=== PATIENT | female | born 1965 | race Caucasian/White ===

== ENCOUNTER → 2016-10-01 | Outpatient (CLI) | payer BC ==
--- NOTE | 2016-10-02 16:39 | SLEEPHOME ---
DATE OF PROCEDURE: 10/01/2016 ORDERED BY: Dr. Sharpe Diagnostic home sleep testing was performed due to concern for the obstructive sleep apnea syndrome. For testing, a NOX-T3 respiratory monitoring device was used. Continuous record was made of pulse, oxygen saturation, air flow, chest, abdominal strain and body position. 9 hours and 59 minutes of data were reviewed. There were 7 hours and 51 minutes marked as time in bed. During the interval marked time in bed, there were 33 respiratory events identified of 10 seconds in duration or greater for a respiratory event index of 4.2. The events were primarily obstructive but mixed and central apneas were also seen. The patient's baseline pulse rate was 74 beats per minute. Pulse rate ranged 62 to 90 beats per minute. Oxygen saturation at baseline was 92%. Lowest oxygen saturation was 88%. Testing was performed in both the supine and nonsupine positions. IMPRESSION: Borderline home sleep test with repetitive respiratory events and oxygen desaturations to 88% with a respiratory event index of 4.2 is suggestive of the obstructive sleep apnea syndrome. Home testing is known to underestimate the significance of disease. If the patient's symptoms warrant, formal in laboratory nocturnal polysomnography is a more sensitive measure for the identification of obstructive sleep apnea syndrome. Edited by: ASHLEY 10/03/2016 13:49 JO
== END ==
LOC: M SLEEP HO 09:13
PROVIDERS: ATTEND Family Medicine
DX: G47.33 Obstructive sleep apnea (adult) (pediatric) (principal)

== ENCOUNTER → 2016-10-07 | Outpatient (REF) | payer BC ==
[2016-10-07 12:10] LABS: BASO % 0.7 % (0.0-1.0); EOS # 0.1 K/mm3 (0.0-0.50); EOS % 3.3 % (0.0-3.0); LARGE UNSTAINED CELL # 0.1 K/mm3 (0.0-0.4); LARGE UNSTAINED CELL % 1.7 % (0.0-4.0); LYMPH # 1.4 K/mm3 (1.5-4.5); LYMPH % 29.3 % (24.0-44.0); MEAN CORPUSCULAR HEMOGLOBIN 31.5 pg (27.0-33.0); MEAN CORPUSCULAR HGB CONC 32.5 g/dl (32.0-36.5); MEAN CORPUSCULAR VOLUME 96.8 fl (80.0-96.0); MONO # 0.2 K/mm3 (0.0-0.8); NEUTROPHILS # 2.6 K/mm3 (1.8-7.7); NEUTROPHILS % 59.8 % (36.0-66.0); PLATELET COUNT, AUTOMATED 288 k/mm3 (150-450); RED CELL DISTRIBUTION WIDTH 13.4 % (11.5-14.5); WHITE BLOOD COUNT 4.3 K/mm3 (4.0-10.0)
[2016-10-07 12:37] LABS: VITAMIN B12 LEVEL 792 PG/ML (247-911)
[2016-10-07 12:57] LABS: ALBUMIN 3.5 GM/DL (3.2-5.2); ALBUMIN/GLOBULIN RATIO 1.13 (1.00-1.93); ALKALINE PHOSPHATASE 103 U/L (45-117); ALT/SGPT 26 U/L (12-78); ANION GAP 5 MEQ/L (8-16); AST/SGOT 14 U/L (15-37); BILIRUBIN,TOTAL 0.3 MG/DL (0.2-1.0); BLOOD UREA NITROGEN 17 MG/DL (7-18); CALCIUM LEVEL 8.4 MG/DL (8.5-10.1); CARBON DIOXIDE LEVEL 26 MEQ/L (21-32); CHLORIDE LEVEL 113 MEQ/L (98-107); CHOLESTEROL LEVEL 180 MG/DL (<200); CREATININE FOR GFR 0.89 MG/DL (0.55-1.02); FERRITIN 15 NG/ML (8-252); FREE T4 0.74 NG/DL (0.76-1.46); GLOMERULAR FILTRATION RATE > 60.0 (>51); GLUCOSE, FASTING 84 MG/DL (70-105); PERCENT SATURATION 30.8 % (13.2-37.4); POTASSIUM SERUM 4.5 MEQ/L (3.5-5.1); SODIUM LEVEL 144 MEQ/L (136-145); TOTAL IRON BINDING CAPACITY 318 UG/DL (250-450); TOTAL PROTEIN 6.6 GM/DL (6.4-8.2); TRIGLYCERIDES LEVEL 93 MG/DL (<150)
== END ==
LOC: M SFHCPLAZ 11:27
PROVIDERS: ATTEND Family Medicine
DX: I10 Essential (primary) hypertension (principal); E78.2 Mixed hyperlipidemia; R73.01 Impaired fasting glucose; E55.9 Vitamin D deficiency, unspecified

== ENCOUNTER → 2016-10-13 | Outpatient (CLI) | payer BC ==
--- NOTE | 2016-10-13 09:26 | REPMRS ---
Patient History The patient states she had a clinical breast exam in 09/19 Patient is postmenopausal. Family history of breast cancer in mother at age 67 and breast cancer in maternal grandmother at age 50 or over. Benign excisional biopsy of the left breast. Taking estrogen for 3 years. Digital Woman Screen Mammo: October 13, 2016 - Exam #: [id number] Bilateral CC and MLO view(s) were taken. Technologist: Estefania Camarena, Technologist Prior study comparison: October 18, 2013, left breast digital mammo diagnostic unilateral, performed at [facility]. September 28, 2013, digital woman screen mammo performed at [facility]. FINDINGS: The breast tissue is heterogeneously dense. This may lower the sensitivity of mammography. There has been no change in the appearance of the mammogram from the prior studies. There is a moderate amount of residual fibroglandular tissue which is fairly symmetric. There is no interval development of dominant mass, areas of architectural distortion, or clustered microcalcification typical of malignancy. ASSESSMENT: BI-RADS/ACR category 1 mammogram. Negative. Recommendation Routine screening mammogram in 1 year (for women over age 40). This mammogram was interpreted with the aid of an FDA-approved computer-aided dectection system. Electronically Signed By: Femi Deleon MD 10/13/16 0926
--- NOTE | 2016-10-14 10:31 | DEXA ---
AP SPINE L1 - L4 1.216 0.2 0.3 LT FEMUR TOTAL 1.129 1.0 1.2 RT FEMUR TOTAL 1.104 0.8 1.0 TOTAL BODY TOTAL OTHER DUAL FEMUR FRAX* ASSESSMENT Risk factors: None. 10 year probability of fracture Major osteoporotic fracture 4.3 % Hip fracture 0.1 % COMMENTS: Normal bone densitometry of the spine and hips. The density of the spine has increased 3.1% since 09/2011. The density of the left hip has increased 4.5% since 09/2011. The density of the right hip has increased 5.0% since 09/2011. The increased density of the spine does represent a significant change. The increased density of the left hip does represent a significant change. The increased density of the right hip does represent a significant change. FOLLOW-UP: Recommendation for the next bone density exam: 5 years. JO
== END ==
LOC: M WHC 08:51
PROVIDERS: ATTEND Family Medicine
DX: Z12.31 Encounter for screening mammogram for malignant neoplasm of breast (principal); N95.1 Menopausal and female climacteric states; Z92.89 Personal history of other medical treatment; Z80.3 Family history of malignant neoplasm of breast
CPT/HCPCS: 77080; G0202

== ENCOUNTER 2016-10-21 09:22 | Inpatient (IN) | payer BC ==
[~2016-10-21] VITALS: Ht 162.6 cm; Wt 81.5 kg
[2016-10-21] MEDS ORDERED: BUPR1TAB17 PO (09:33)
[2016-10-21] MEDS ORDERED: VITA100037 PO (09:46)
[2016-10-21] MEDS ORDERED: ATOR1TAB21 PO (09:46)
[2016-10-21] MEDS ORDERED: B-12100010 INJ (09:46)
[2016-10-21] MEDS ORDERED: CALC1TAB30 PO (09:46)
[2016-10-21] MEDS ORDERED: OXYB5TAB PO (09:46)
[2016-10-21] MEDS ORDERED: TOPA100T8 PO (09:46)
[2016-10-21] MEDS ORDERED: FAMO1TAB25 PO (09:46)
[2016-10-21] MEDS ORDERED: ESTR1TAB PO (09:46)
[2016-10-21] MEDS ORDERED: REGL5TAB2 PO (09:46)
[2016-10-21] MEDS ORDERED: AMIT100TA PO (09:46)
[2016-10-21] MEDS ORDERED: METO-207 PO (09:46)
[2016-10-21] MEDS ORDERED: BUPR100T3 PO (09:47)
[2016-10-21 11:02] LABS: BASO % 0.8 % (0.0-1.0); EOS # 0.2 K/mm3 (0.0-0.50); EOS % 3.1 % (0.0-3.0); LARGE UNSTAINED CELL # 0.1 K/mm3 (0.0-0.4); LARGE UNSTAINED CELL % 2.5 % (0.0-4.0); LYMPH # 1.5 K/mm3 (1.5-4.5); LYMPH % 27.6 % (24.0-44.0); MEAN CORPUSCULAR HEMOGLOBIN 31.5 pg (27.0-33.0); MEAN CORPUSCULAR HGB CONC 32.3 g/dl (32.0-36.5); MEAN CORPUSCULAR VOLUME 97.5 fl (80.0-96.0); MONO # 0.2 K/mm3 (0.0-0.8); MONO % 4.2 % (0.0-5.0); NEUTROPHILS # 3.4 K/mm3 (1.8-7.7); NEUTROPHILS % 61.8 % (36.0-66.0); PLATELET COUNT, AUTOMATED 295 k/mm3 (150-450); RED CELL DISTRIBUTION WIDTH 13.2 % (11.5-14.5); WHITE BLOOD COUNT 5.5 K/mm3 (4.0-10.0)
--- NOTE | 2016-10-21 11:18 | REP ---
CT of the brain are without IV contrast: Comparison is 05/17/2010. There is a focal scalp contusion versus mass in the left supraorbital area medially, similar appearance to the comparison study. There is no subdural or epidural hematoma. There is no subarachnoid or intraparenchymal hemorrhage. There is no edema, mass effect or midline shift. Ventricles are normal size and midline. Cortical stripe is unremarkable. The visualized paranasal sinuses and mastoid air cells are clear. Impression: There is no hemorrhage, acute infarct or mass. There is a a scalp lesion in the left supraorbital area similar to the comparison study. This could be a contusion or scalp mass. Otherwise, negative CT study of the brain. Signed by Femi Lopez MD 10/21/2016 11:09 A
[2016-10-21 11:27] LABS: ALBUMIN 3.8 GM/DL (3.2-5.2); ALBUMIN/GLOBULIN RATIO 1.03 (1.00-1.93); ALKALINE PHOSPHATASE 111 U/L (45-117); ALT/SGPT 27 U/L (12-78); ANION GAP 6 MEQ/L (8-16); AST/SGOT 13 U/L (15-37); BILIRUBIN,DIRECT < 0.1 MG/DL (0.0-0.2); BILIRUBIN,TOTAL 0.3 MG/DL (0.2-1.0); BLOOD UREA NITROGEN 15 MG/DL (7-18); CALCIUM LEVEL 8.6 MG/DL (8.5-10.1); CARBON DIOXIDE LEVEL 24 MEQ/L (21-32); CHLORIDE LEVEL 112 MEQ/L (98-107); GLOMERULAR FILTRATION RATE > 60.0 (>51); GLUCOSE, FASTING 97 MG/DL (70-105); POTASSIUM SERUM 4.2 MEQ/L (3.5-5.1); SODIUM LEVEL 142 MEQ/L (136-145); TOTAL PROTEIN 7.5 GM/DL (6.4-8.2)
[2016-10-21 12:37] LABS: METHADONE URINE NEGATIVE (NEGATIVE)
--- NOTE | 2016-10-21 17:56 | REP ---
MR BRAIN WITHOUT CONTRAST: HISTORY: Ataxia. COMPARISON: 04/06/2013. Multiple areas of increased signal intensity on T2-weighted images are present in the periventricular and subcortical white matter. Additional areas of increased signal intensity are present in the corpus callosum. Several lesions are increased in size. There are several new lesions. There is no intraparenchymal hemorrhage, infarct, mass or midline shift. The ventricular system is normal in appearance. There is no extracerebral collection. The visualized sinuses are clear. A 7 mm isointense nodule is present in the subcutaneous tissue overlying the right fontal bone, unchanged compared to the previous study. IMPRESSION: The above findings are consistent with multiple sclerosis that have progressed slightly compared to the previous study. Signed by Linden Hebert MD 10/21/2016 06:14 P
--- NOTE | 2016-10-21 18:30 | REP ---
MRA HEAD WITHOUT CONTRAST: HISTORY: Ataxia. 3D [id number]-[id number] MR angiography was performed at the level of the [place] of [place]. There is no aneurysm, arteriovenous malformation or atherosclerotic lesion. Major intracranial vessels are patent. The left vertebral arteries are equal in size. IMPRESSION:Normal MRA brain. Signed by Linden Hebert MD 10/21/2016 06:51 P
[2016-10-21] MEDS ORDERED: FAMO1TAB11 PO (19:08)
[2016-10-21] MEDS ORDERED: ESTR0.5T3 PO (19:08)
[2016-10-21] MEDS ORDERED: ONDANSETRON 4MG/2ML VIAL (J2405) IV PRN (20:00)
[2016-10-21] MEDS ORDERED: ACETAMINOPHEN TAB 650MG DOSE (2X325MG) PO PRN (20:00)
--- NOTE | 2016-10-21 20:14 | HPEPDOC ---
General Date of Admission 10/21/16 Primary Care Physician: Sulaiman Sharpe M.D. Chief Complaint The patient is a 51-year-old female admitted with a reason for visit of allergic reaction. History of Present Illness 51-year-old female with past medical history of hypertension, urge incontinence , neurofibromatosis type I, dyslipidemia, GERD, migraine headache with findings of multiple areas of increased signal intensity in the periventricular and subcortical white matter on MRI presents to the ER with a chief complaint of increased generalized weakness and tremors over the last 3 days. The patient states that her symptoms have started since she was began on Wellbutrin about a week ago. She notes that she feels more tremulous in her extremities and has a more unbalanced gait. In addition, she notes that her speech has also fluctuated in intensity and she has noticed herself stuttering more. Of note, the patient states that she did follow up with Dr. Marquez of Neurology in the past for migrainous headaches (followed for 10-15 years, last seen in 2013). However, she denies any migrainous episodes during this time. In addition, the patient denies any fevers, chills, lightheadedness, dizziness, facial numbness, tingling, or any focal neurological deficits, chest pain, palpitations, SOB, abdominal pain, or nausea/vomiting/diarrhea. In the ER, an MRI of the brain revealed findings consistent with multiple sclerosis that have increased slightly compared to her previous exam. Dr. Mcgill of neurology was contacted in the ER about this, and he has recommended an MRI of the brain and cervical, thoracic, and lumbar spine with contrast for further evaluation. The patient will be admitted under the service of Dr. Padilla of the [facility] for further evaluation and management. Home Medications Scheduled (Calcium 500+D 500-200 mg-Unit) 1 Tab Tab 1 TAB PO DAILY (Reported) (Bupropion HCl Sr) 100 Mg Tab 100 MG PO BID (Reported) Amitriptyline HCl (Amitriptyline HCl) 100 Mg Tab 100 MG PO QHS (Reported) Atorvastatin Calcium (Atorvastatin Calcium) 20 Mg Tab 20 MG PO DAILY (Reported ) Cyanocobalamin (B-12) 1,000 Mcg Cap 1,000 MCG INJ MTHLY (Reported) USUALLY DOES TOWARDS THE END OF EVERY MONTH - HAS NOT DONE SHIRLEY'S DOSE YET Estradiol (Estrace) 0.5 Mg Tab 0.5 MG PO DAILY (Reported) Famotidine (Famotidine) 20 Mg Tab 20 MG PO BID (Reported) Metoclopramide Hcl (Reglan) 5 Mg Tab 5 MG PO BID (Reported) Metoprolol Succinate (Metoprolol Succinate ER) 50 Mg Tab 50 MG PO DAILY ( Reported) Oxybutynin Chloride (Oxybutynin Chloride ER) 5 Mg Tab 5 MG PO DAILY (Reported) Topiramate (Topamax) 100 Mg Tab 100 MG PO BID (Reported) Vitamin D (Vitamin D) 1,000 Unit Cap 1,000 UNIT PO DAILY (Reported) Allergies Coded Allergies: Dextran (Unverified Allergy, Unknown, PROMETRIUM CAUSES BLACK OUTS, 10/05/12 ) Dust (Unverified Allergy, Unknown, 06/13/08) Citalopram (Unverified Adverse Reaction, Unknown, WGT GAIN, 10/05/12) Past Medical History Medical History As noted in HPI. Surgical History APPENDECTOMY 1978 TUBAL LIGATION 1998 LEEP/NO DYSPLASIA 03/11 ENDOMETRIAL BX./NO HYPERPLASIA OR MALIGNANCY FOUND-REGGIE CONCEPCION,KATHI 05/12 SKIN TAG LEFT BREAST REMOVED 10/07 LAVH/BSO 2 POSTEMENOPAUSAL BLEEDING, LEIOMYOMAE, PELVIC ADHESIONS, B OVARIAN SEROUS CYST DEVELOPED POSTOP WOUND INFECTION 07/2011 COLONOSCOPY-DR. SAMUEL CHRISTIANSON 04/10/16 Family History FATHER: UNKNOWN MOTHER: ALIVE 74 YRS, CAD-S/P VT AT ?16 YO, BREAST CANCER, DX AT AGE 66, LUMPECTOMY, NO CHEMO/RAD, COPD, HEART VALVE MALFUNCTION SON(S): ALIVE 32,24 YRS MATERNAL GRAND MOTHER: , BREAST CANCER, DX 3 SISTER(S) - HEALTHY. 2 SON(S) - HEALTHY. DENIES COLON OR OVARIAN CANCERS. Social History * Smoker: former Smoker Alcohol: Denies Drugs: denies Review of Symptoms Other systems 10 point review of systems negative unless otherwise specified in HPI. Physical Examination General Exam: Positive: Alert, Cooperative, No Acute Distress ENT Exam: Positive: Atraumatic, Mucous membr. moist/pink Neck Exam: Negative: JVD Chest Exam: Positive: Clear to auscultation, Normal air movement Heart Exam: Positive: Normal S1, Normal S2, Rate Normal Abdomen Exam: Positive: Soft, Negative: Tenderness Extremity Exam: Negative: Swelling, Tenderness Neuro Exam: Positive: Cranial Nerves 3-12 NL, Normal Tone, Reflexes 2+, Sensation Intact, Strength at 5/5 X4 ext Psych Exam: Positive: Oriented x 3 Vital Signs Vital Signs Date Time Temp Pulse Resp B/P Pulse Ox O2 Delivery O2 Flow Rate FiO2 10/21/16 17:58 63 20 135/86 96 10/21/16 09:23 97.9 Room Air Laboratory Data Labs 24H Laboratory Tests 2 10/21/16 10:32: Aspartate Amino Transf (AST/SGOT) 13L, Alanine Aminotransferase (ALT/SGPT) 27, Alkaline Phosphatase 111, Total Bilirubin 0.3, Direct Bilirubin < 0.1, Albumin 3.8, Albumin/Globulin Ratio 1.03, Anion Gap 6L, White Blood Count 5.5, Red Blood Count 4.64, Hemoglobin 14.6, Hematocrit 45.2, Mean Corpuscular Volume 97.5H, Mean Corpuscular Hemoglobin 31.5, Mean Corpuscular Hemoglobin Concent 32.3, Red Cell Distribution Width 13.2, Platelet Count 295, Neutrophils (%) ( Auto) 61.8, Lymphocytes (%) (Auto) 27.6, Monocytes (%) (Auto) 4.2, Eosinophils ( %) (Auto) 3.1H, Basophils (%) (Auto) 0.8, Neutrophils # (Auto) 3.4, Lymphocytes # (Auto) 1.5, Monocytes # (Auto) 0.2, Eosinophils # (Auto) 0.2, Basophils # ( Auto) 0.0, Calcium Level 8.6, Ethyl Alcohol Level < 0.003, Glomerular Filtration Rate > 60.0, Large Unclassified Cells # 0.1, Large Unclassified Cells % 2.5, Thyroid Stimulating Hormone (TSH) 0.917, Total Protein 7.5 10/21/16 11:20: Ammonia 24 10/21/16 11:22: Bedside Glucose (Misc Panel) 91 10/21/16 11:59: Urine Amphetamines Screen NEGATIVE, Urine Benzodiazepines Screen NEGATIVE, Urine Opiates Screen NEGATIVE, Urine Barbiturates Screen NEGATIVE, Urine Cannabinoids Screen NEGATIVE, Urine Cocaine Metabolite Screen NEGATIVE, Urine Methadone Screen NEGATIVE, Urine Phencyclidine Screen NEGATIVE CBC/BMP Laboratory Tests 10/21/16 10:32 Red Blood Count 4.64, Mean Corpuscular Volume 97.5 H, Mean Corpuscular Hemoglobin 31.5, Mean Corpuscular Hemoglobin Concent 32.3, Red Cell Distribution Width 13.2, Neutrophils (%) (Auto) 61.8, Lymphocytes (%) (Auto) 27.6, Monocytes (%) (Auto) 4.2, Eosinophils (%) (Auto) 3.1 H, Basophils (%) ( Auto) 0.8, Neutrophils # (Auto) 3.4, Lymphocytes # (Auto) 1.5, Monocytes # (Auto ) 0.2, Eosinophils # (Auto) 0.2, Basophils # (Auto) 0.0 Plan / VTE VTE Prophylaxis Ordered?: Yes Plan Plan Tremors possibly attributable to MRI of Brain consistent with multiple sclerosis vs Wellbutrin use We will admit the patient to med/surge unit No focal neurological deficits appreciated on exam Neurology contacted in the ER-we will obtain an MRI of the brain, and cervical/ thoracic/lumbar spine with contrast We will withhold administering any steroids at this time, and wait for evaluation by neurology We will withhold the patient's Wellbutrin as this may have been a causative factor for the patient's tremors Neurological checks Continue to monitor Migraine headaches Patient followed Dr. Marquez of Neurology as an outpatient in the past before for history of migraines Patient denies any complaints of migrainous headaches at this time Continue amitriptyline, Topamax Hypertension, stable Continue metoprolol Dyslipidemia Continue statin Urge incontinence Continue oxybutynin GERD Cont Famotidine DVT prophylaxis-Lovenox The patient will be admitted under the service of Dr. Padilla, of the [facility] who will begin to follow the patient in the a.PHYLICIA Lerner MD Oct 21, 2016 20:14
--- NOTE | 2016-10-21 20:17 | ECGEPIP ---
Stationary ECG Study [facility] - ED Test Date: 2016-10-21 Pat Name: GUERRERO LEIVA Department: Room: - Gender: F Stunt Performer: JJessie : 1965 Requested By: Alissa Gay Order Number: [id number] Reading MD: Alissa Gay Measurements Intervals [place] Rate: 66 P: 7 VA: 190 QRS: -6 QRSD: 104 T: 40 QT: 407 QTc: 429 Interpretive Statements SINUS RHYTHM NO PRIOR FOR COMPARISON Electronically Signed On 10-21-2016 20:17:00 EDT by Alissa Gay
--- NOTE | 2016-10-21 21:40 | REPUSA ---
MRI of the thoracic spine with and without contrast Clinical statement: tremors, history of multiple sclerosis. Technique: Multiecho multiplanar MRI images of the thoracic spine were obtained before and after adm inistration of 15 mL of Prohance intravenous gadolinium contrast. No comparison is available. Findings: The thoracic vertebral bodies are in satisfactory position and alignment. No fractures or d islocations are demonstrated. The bone marrow appears unremarkable. Intervertebral disc spaces are we ll maintained. There is no evidence of disc herniation or protrusion. The neural foramen are patent. The facet joints are intact. The surrounding soft tissues are within normal limits. There are no abno rmal areas of contrast enhancement. Impression: Unremarkable MRI examination of the thoracic spine.. No acute findings to suggest exacerb ation of multiple sclerosis.
--- NOTE | 2016-10-21 21:40 | REPUSA ---
MRI of the lumbar spine with and without contrast Clinical statement: tremors, history of multiple sclerosis. Technique: Multiecho multiplanar MRI images of the lumbar spine were obtained before and after admin istration of 15 mL of intravenous Prohance gadolinium contrast. No comparison is available. Findings: The lumbar vertebral bodies are in satisfactory position and alignment. No fractures or dis locations are demonstrated. Normal heterogeneous bone marrow signal is noted. No osseous tumors are s een. The intervertebral disc heights are well maintained and demonstrate normal signal. The filum ter minale and conus medullaris appear unremarkable. The spinal cord demonstrates normal signal and conto ur. The surrounding soft tissues are within normal limits. At the lumbar vertebral levels, there is no evidence of disc herniation or protrusion. There is no ce ntral canal stenosis. There.are no abnormal areas of enhancement on postcontrast images. Impression: Unremarkable MRI examination of the lumbar spine. No evidence of exacerbation of multipl e sclerosis. Findings will be called by the toaster operator.
--- NOTE | 2016-10-21 21:40 | REPUSA ---
MRI cervical spine with and without contrast Clinical statement: Multiple sclerosis. Tremors. Technique: Multiecho multiplanar MRI images of the cervical spine were obtained before and after adm inistration of 15 mL of Prohance intravenous gadolinium contrast. No comparison is available. Findings: The cervical vertebral bodies are in satisfactory position and alignment. No fractures or d islocations are demonstrated. Normal heterogeneous bone marrow signal is noted. No osseous tumors are seen. The visualized portions of the posterior fossa are unremarkable. The cervical cranial junction is intact. The intervertebral disc spaces and heights are well-maintained. The facet joints are inta ct without evidence of subluxation. The cervical spinal cord demonstrates normal signal and contour. The surrounding soft tissues are within normal limits. there are no abnormal areas of intestine on po stcontrast images. Minimal disc bulging is appreciated at C4/C5 and C5/C6.. There is no central canal stenosis. The jb ral foramina are patent bilaterally. Impression: 1. No focal abnormal area of enhancement to suggest exacerbation of multiple sclerosis. 2 Minimal disc bulging at C4/C5 and C5/C6.
[2016-10-21 23:08] VITALS: BP 120/58
[2016-10-21] MEDS: FAMOTIDINE 20 MG TAB PO SCH (23:29)
[2016-10-21] MEDS: TOPIRAMATE (TopAMAX) 100 MG TAB PO SCH (23:29)
[2016-10-21] MEDS: METOCLOPRAMIDE 5 MG TAB PO SCH (23:30)
[2016-10-21] MEDS: AMITRIPTYLINE 50 MG TAB PO SCH (23:30)
--- NOTE | 2016-10-22 00:50 | REPUSA ---
MRI of the brain with contrast Technique: Multiecho multiplanar MRI images of the brain were obtained after administration of 15 m L of intravenous Prohance gadolinium contrast. Comparison: 10/21/2016. Findings: The ventricles and sulci are symmetric bilaterally. The brain parenchyma demonstrates uniform and nor mal signal on all sequences. There is no area of abnormal enhancement appreciated. The vascular struc tures appear unremarkable. There is no midline shift, mass effect, or extra-axial fluid collection. T he midline intracranial structures do not demonstrate any gross abnormalities. The cervical cranial j unction is intact. The orbits are unremarkable. The visualized paranasal sinuses and mastoid air cell s are clear. The osseous structures and superficial soft tissues are unremarkable. The vascular struc tures demonstrate appropriate flow voids. Impression: No abnormal area of enhancement appreciated. The other findings are grossly stable.
[2016-10-22 06:00] VITALS: BP 103/63
[2016-10-22 06:38] LABS: MEAN CORPUSCULAR HGB CONC 31.7 g/dl (32.0-36.5); MEAN CORPUSCULAR VOLUME 97.7 fl (80.0-96.0); RED CELL DISTRIBUTION WIDTH 13.3 % (11.5-14.5); WHITE BLOOD COUNT 5.8 K/mm3 (4.0-10.0)
[2016-10-22 06:51] LABS: ANION GAP 5 MEQ/L (8-16); BLOOD UREA NITROGEN 15 MG/DL (7-18); CALCIUM LEVEL 8.5 MG/DL (8.5-10.1); CARBON DIOXIDE LEVEL 23 MEQ/L (21-32); CHLORIDE LEVEL 112 MEQ/L (98-107); GLOMERULAR FILTRATION RATE > 60.0 (>51); GLUCOSE, FASTING 101 MG/DL (70-105); POTASSIUM SERUM 3.9 MEQ/L (3.5-5.1); SODIUM LEVEL 140 MEQ/L (136-145)
[2016-10-22] MEDS: VITAMIN D 1,000 INTERNATIONAL UNITS TABLET PO SCH (09:03)
[2016-10-22] MEDS: oxyBUTYnin *DITROPAN XL* 5 MG TABCR PO SCH (09:03)
[2016-10-22] MEDS: ATORVASTATIN 20 MG TAB PO SCH (09:03)
[2016-10-22] MEDS: TOPIRAMATE (TopAMAX) 100 MG TAB PO SCH ×2 (09:03→20:09)
[2016-10-22] MEDS: FAMOTIDINE 20 MG TAB PO SCH ×2 (09:03→20:09)
[2016-10-22] MEDS: METOPROLOL SUCC (TopROL XL) 50MG **XL** TAB PO SCH (09:03)
[2016-10-22] MEDS: METOCLOPRAMIDE 5 MG TAB PO SCH ×2 (09:03→20:09)
[2016-10-22] MEDS: ENOXAPARIN 40 MG/0.4 ML SYRINGE (J1650) SC SCH (09:04)
--- NOTE | 2016-10-22 10:13 | IPNPDOC ---
Subjective Date Seen The patient was seen on 10/22/16. Subjective Chief Complaint/HPI The patient is a 51-year-old female admitted with a reason for visit of Multiple Sclerosis. Events since last encounter Pt without change in symptoms since arrival to hospital. She c/o tremors more so to the BLE with movement, unsteady gait, although she has been cleared by PT. She denies [place]E, weakness, numbness, tingling. General: Denies: Fatigue Constitutional: Denies: Chills, Fever ENT: Denies: Head Aches Skin: Denies: Rash Pulmonary: Denies: Cough, Dyspnea Cardiovascular: Denies: Chest Pain, Palpitations Gastrointestinal: Denies: Diarrhea, Nausea, Vomiting Musculoskeletal: Denies: Back Pain, Neck Pain Neurological: Reports: Change in speech (occ will stutter, have a hard time getting the words out, this has started since the tremors began. ), Incoordination, Denies: Confusion, Numbness, Weakness Psych: Reports: Mood Normal Objective Physical Examination General Exam: Positive: Alert, Cooperative, No Acute Distress ENT Exam: Positive: Atraumatic, Mucous membr. moist/pink Neck Exam: Negative: JVD Chest Exam: Positive: Clear to auscultation, Normal air movement Heart Exam: Positive: Normal S1, Normal S2, Rate Normal Abdomen Exam: Positive: Soft, Negative: Tenderness Extremity Exam: Negative: Swelling, Tenderness Neuro Exam: Positive: Cranial Nerves 3-12 NL, Normal Tone, Other (tremors to legs when she lifts them off the bed), Reflexes 2+, Sensation Intact, Strength at 5/5 X4 ext Psych Exam: Positive: Oriented x 3 Assessment /Plan Problems (1) Multiple sclerosis Status: Acute Problem Text: MRI brain suggestive of MS with worsening c/w previous imaging in 2012, 2011. Pt previously followed with Neuro for migraines, consult pending , await input and recommendations. MRI C, T, L spine without acute disease, and suggestion of changes assoc with MS. (2) Action tremor Status: Acute Problem Text: as above. (3) Hypertension Status: Chronic Response to Treatment: Stable Plan/VTE VTE Prophylaxis Ordered?: Yes Plan Family Medicine Attending Note: I saw and examined Ms. Roman this afternoon; I d/w EWELINA Perez and I agree with her note as above. Patient has intention tremor in legs and hands, with difficulty with alternating hand movements, dtlmpm-gr-ylir testing, and omzr-[id number] movements. She denies any pain in her extremities and at rest feels at her baseline. She has some rigidity of legs with passive ROM. She is able to stand and walk with only minimal difficulty and gait improves the farther she walks. Initial MRI in ED suggested MS, but repeat brain MRI and spine MRI with contrast do not show any normal enhancement. Will await Neurology evaluation and recommendations. (KES) VS, I&O, 24H, Fishbone Vital Signs/I&O Vital Signs Date Time Temp Pulse Resp B/P Pulse Ox O2 Delivery O2 Flow Rate FiO2 10/22/16 09:03 81 118/76 10/22/16 06:00 97.0 15 93 Room Air I&O- Last 24 Hours up to 6 AM 10/22/16 06:00 Intake Total 240 ml Output Total 500 ml Balance -260 ml Laboratory Data 24H LABS Laboratory Tests 2 10/21/16 10:32: Aspartate Amino Transf (AST/SGOT) 13L, Alanine Aminotransferase (ALT/SGPT) 27, Alkaline Phosphatase 111, Total Bilirubin 0.3, Direct Bilirubin < 0.1, Albumin 3.8, Albumin/Globulin Ratio 1.03, Anion Gap 6L, White Blood Count 5.5, Red Blood Count 4.64, Hemoglobin 14.6, Hematocrit 45.2, Mean Corpuscular Volume 97.5H, Mean Corpuscular Hemoglobin 31.5, Mean Corpuscular Hemoglobin Concent 32.3, Red Cell Distribution Width 13.2, Platelet Count 295, Neutrophils (%) ( Auto) 61.8, Lymphocytes (%) (Auto) 27.6, Monocytes (%) (Auto) 4.2, Eosinophils ( %) (Auto) 3.1H, Basophils (%) (Auto) 0.8, Neutrophils # (Auto) 3.4, Lymphocytes # (Auto) 1.5, Monocytes # (Auto) 0.2, Eosinophils # (Auto) 0.2, Basophils # ( Auto) 0.0, Calcium Level 8.6, Ethyl Alcohol Level < 0.003, Glomerular Filtration Rate > 60.0, Large Unclassified Cells # 0.1, Large Unclassified Cells % 2.5, Thyroid Stimulating Hormone (TSH) 0.917, Total Protein 7.5 10/21/16 11:20: Ammonia 24 10/21/16 11:22: Bedside Glucose (Misc Panel) 91 10/21/16 11:59: Urine Amphetamines Screen NEGATIVE, Urine Benzodiazepines Screen NEGATIVE, Urine Opiates Screen NEGATIVE, Urine Barbiturates Screen NEGATIVE, Urine Cannabinoids Screen NEGATIVE, Urine Cocaine Metabolite Screen NEGATIVE, Urine Methadone Screen NEGATIVE, Urine Phencyclidine Screen NEGATIVE 10/22/16 06:11: Anion Gap 5L, Blood Urea Nitrogen 15, Creatinine 0.90, Sodium Level 140, Potassium Level 3.9, Chloride Level 112H, Carbon Dioxide Level 23, Calcium Level 8.5, Glomerular Filtration Rate > 60.0 CBC/BMP Laboratory Tests 10/21/16 10:32 Red Blood Count 4.64, Mean Corpuscular Volume 97.5 H, Mean Corpuscular Hemoglobin 31.5, Mean Corpuscular Hemoglobin Concent 32.3, Red Cell Distribution Width 13.2, Neutrophils (%) (Auto) 61.8, Lymphocytes (%) (Auto) 27.6, Monocytes (%) (Auto) 4.2, Eosinophils (%) (Auto) 3.1 H, Basophils (%) ( Auto) 0.8, Neutrophils # (Auto) 3.4, Lymphocytes # (Auto) 1.5, Monocytes # (Auto ) 0.2, Eosinophils # (Auto) 0.2, Basophils # (Auto) 0.0 10/22/16 06:11 Red Blood Count 4.52, Mean Corpuscular Volume 97.7 H, Mean Corpuscular Hemoglobin 31.0, Mean Corpuscular Hemoglobin Concent 31.7 L, Red Cell Distribution Width 13.3, Calcium Level 8.5 YANA LANDA PA-C Oct 22, 2016 10:13 MARCELLO JEFFERSON MD Oct 22, 2016 16:45
[2016-10-22 14:00] VITALS: BP 108/56
[2016-10-22] MEDS: AMITRIPTYLINE 50 MG TAB PO SCH (20:09)
[2016-10-22 22:00] VITALS: BP 120/64
[2016-10-23 06:00] VITALS: BP 119/69
[2016-10-23 06:16] LABS: MEAN CORPUSCULAR HEMOGLOBIN 30.2 pg (27.0-33.0); MEAN CORPUSCULAR HGB CONC 30.9 g/dl (32.0-36.5); MEAN CORPUSCULAR VOLUME 97.8 fl (80.0-96.0); RED CELL DISTRIBUTION WIDTH 13.3 % (11.5-14.5); WHITE BLOOD COUNT 5.4 K/mm3 (4.0-10.0)
[2016-10-23 06:26] LABS: ANION GAP 8 MEQ/L (8-16); BLOOD UREA NITROGEN 14 MG/DL (7-18); CALCIUM LEVEL 7.7 MG/DL (8.5-10.1); CARBON DIOXIDE LEVEL 21 MEQ/L (21-32); CHLORIDE LEVEL 113 MEQ/L (98-107); CREATININE FOR GFR 0.97 MG/DL (0.55-1.02); GLOMERULAR FILTRATION RATE > 60.0 (>51); GLUCOSE, FASTING 102 MG/DL (70-105); POTASSIUM SERUM 4.3 MEQ/L (3.5-5.1); SODIUM LEVEL 142 MEQ/L (136-145)
[2016-10-23 09:00] VITALS: BP 119/69
[2016-10-23] MEDS: ENOXAPARIN 40 MG/0.4 ML SYRINGE (J1650) SC SCH (09:00)
[2016-10-23] MEDS: METOPROLOL SUCC (TopROL XL) 50MG **XL** TAB PO SCH (09:00)
[2016-10-23] MEDS: METOCLOPRAMIDE 5 MG TAB PO SCH (09:00)
[2016-10-23] MEDS: oxyBUTYnin *DITROPAN XL* 5 MG TABCR PO SCH (09:00)
[2016-10-23] MEDS: ATORVASTATIN 20 MG TAB PO SCH (09:00)
[2016-10-23] MEDS: VITAMIN D 1,000 INTERNATIONAL UNITS TABLET PO SCH (09:00)
[2016-10-23] MEDS: TOPIRAMATE (TopAMAX) 100 MG TAB PO SCH (09:00)
[2016-10-23] MEDS: FAMOTIDINE 20 MG TAB PO SCH (09:00)
--- NOTE | 2016-10-23 10:35 | IPNPDOC ---
Subjective Date Seen The patient was seen on 10/23/16. Subjective Chief Complaint/HPI The patient is a 51-year-old female admitted with a reason for visit of Multiple Sclerosis. Events since last encounter Pt cont to c/o tremors of extremities with movement, LE worse then UE. She also has difficulty with speech with is more notable the more she talks. Neuro did not come see her yesterday. General: Denies: Fatigue Constitutional: Denies: Chills, Fever Pulmonary: Denies: Cough, Dyspnea Cardiovascular: Denies: Chest Pain, Palpitations Gastrointestinal: Denies: Diarrhea, Nausea, Vomiting Neurological: Reports: Incoordination, Weakness Psych: Reports: Mood Normal Objective Physical Examination General Exam: Positive: Alert, Cooperative, No Acute Distress ENT Exam: Positive: Atraumatic, Mucous membr. moist/pink Neck Exam: Negative: JVD Chest Exam: Positive: Clear to auscultation, Normal air movement Heart Exam: Positive: Normal S1, Normal S2, Rate Normal Abdomen Exam: Positive: Soft, Negative: Tenderness Extremity Exam: Negative: Swelling, Tenderness Neuro Exam: Positive: Cranial Nerves 3-12 NL, Normal Tone, Other (tremors to legs when she lifts them off the bed), Reflexes 2+, Sensation Intact, Strength at 5/5 X4 ext Psych Exam: Positive: Oriented x 3 Assessment /Plan Problems (1) Multiple sclerosis Status: Acute Problem Text: 10/23 - Reviewed with pt results of MRI brain, C, T and L spine c/ w Brain imaging. Concern for MS as cause of symptoms. Would appreciate input from Neuro who was consulted on admission to come see the pt by Dr Garcia. Nursing has called them this morning and left a message with a staff to remind them of the consult. 10/22 MRI brain suggestive of MS with worsening c/w previous imaging in 2012, 2011. Pt previously followed with Neuro for migraines, consult pending, await input and recommendations. MRI C, T, L spine without acute disease, and suggestion of changes assoc with MS. (2) Action tremor Status: Acute Problem Text: as above. (3) Hypertension Status: Chronic Response to Treatment: Stable Plan/VTE VTE Prophylaxis Ordered?: Yes Plan Family Medicine Attending Note: Patient seen and examined today; I d/w Yana Landa and I agree with her note. Neuro exam remains unchanged today. Patient was found to be safe for discharge by PT yesterday. I d/w Dr. Juarez, who will see the patient today, review her MRIs, and make recommendations. He state that with negative MRIs with contrast, she is unlikely to have MS and that this may be a reaction to wellbutrin or an alternative neurologic process. I agree that timing of onset is suspicious for medication reaction as she started wellbutrin on 10/10, developed symptoms on 10/14, and then symptoms progressively worsened until medication was stopped upon admission. Will await recommendations. (KES) VS, I&O, 24H, Fishbone Vital Signs/I&O Vital Signs Date Time Temp Pulse Resp B/P Pulse Ox O2 Delivery O2 Flow Rate FiO2 10/23/16 09:00 69 119/69 10/23/16 06:00 97.5 17 95 Room Air I&O- Last 24 Hours up to 6 AM 10/23/16 05:59 Intake Total 1200 ml Output Total 1550 ml Balance -350 ml Laboratory Data 24H LABS Laboratory Tests 2 10/23/16 05:53: Anion Gap 8, Blood Urea Nitrogen 14, Creatinine 0.97, Sodium Level 142, Potassium Level 4.3, Chloride Level 113H, Carbon Dioxide Level 21, Calcium Level 7.7L, Glomerular Filtration Rate > 60.0 CBC/BMP Laboratory Tests 10/23/16 05:53 Calcium Level 7.7 L, Red Blood Count 4.38, Mean Corpuscular Volume 97.8 H, Mean Corpuscular Hemoglobin 30.2, Mean Corpuscular Hemoglobin Concent 30.9 L, Red Cell Distribution Width 13.3 YANA LANDA PA-C Oct 23, 2016 10:35 MARCELLO JEFFERSON MD Oct 23, 2016 15:44
[2016-10-23 14:00] VITALS: BP 112/69
--- NOTE | 2016-10-24 18:05 | DSES ---
DATE OF ADMISSION: 10/21/2016 DATE OF DISCHARGE: 10/23/2016 PRIMARY CARE PHYSICIAN: Dr. Sulaiman Sharpe. ATTENDING PHYSICIAN: Dr. Lisa Padilla. PRIMARY DIAGNOSES: 1. Intention tremor. 2. Neurofibromatosis Type 1. SECONDARY DIAGNOSES: 1. Hypertension. 2. Urge incontinence. 3. Dyslipidemia. 4. Gastroesophageal reflux disease (GERD). 5. Migraine headache. CONSULTANTS: Dr. Mcgill of neurology. PROCEDURES: None. SUMMARY STATEMENT: This is a 51-year-old woman with a history of neurofibromatosis type 1 and migraines, who previously followed with neurology, who presented with one week of tremors and difficulty talking. The patient started taking Wellbutrin on 10/10/2016, and developed symptoms on 10/14/2016. Her tremor continued to worsen over the following week, causing her to present to the emergency department on 10/21/2016. The patient underwent initial MRI in the emergency department which showed lesions that were potentially concerning for multiple sclerosis. She subsequently underwent MRI with gadolinium of her brain, cervical, thoracic and lumbar spine, which was less suggestive of multiple sclerosis. The patient was seen by Dr. Mcgill who recommended that we continue to hold Wellbutrin as he thought her symptoms may be side effects to the Wellbutrin. He believes that any abnormalities on MRI are consistent with her neurofibromatosis type 1. The patient continued to have intention tremor in arms and legs throughout her hospitalization, but was evaluated by physical therapy and found to be safe for home discharge with close monitoring by her . DISCHARGE PLANS: 1. Discharge medications: - amitriptyline 100 mg by mouth at bedtime - atorvastatin 20 mg by mouth daily - cyanocobalamin 100 mcg injection monthly - calcium 500 plus D 200 units one tablet by mouth daily - estradiol 0.5 mg by mouth daily - famotidine 20 mg by mouth twice daily - metoclopramide 5 mg by mouth twice a day - metoprolol succinate ER 50 mg by mouth daily - oxybutynin chloride 5 mg by mouth daily - topiramate 100 mg by mouth twice daily - vitamin D 1000 units by mouth daily Medications stopped during this admission - bupropion SR 100 mg twice daily 2. Followup with Dr. Sharpe next week in the office. Followup with Dr. Mcgill within 1-2 weeks. 3. Activity as tolerated. 4. Diet regular. 5. Condition stable. 6. Prognosis good. 7. Pending studies: none HOSPITAL COURSE BY PROBLEM: 1. Intention tremor: This was thought to be most likely due to side effect of Wellbutrin. Further workup may be indicated as an outpatient. Patient was advised to followup with neurology as an outpatient. Initially there was some concern that patient might have multiple sclerosis; however, MRI with gadolinium was done of the brain, cervical, thoracic and lumbar spine, and these did not show any enhancement consistent with multiple sclerosis. Dr. Mcgill evaluated the patient and imaging and thought that any abnormalities were likely related to neurofibromatosis. 2. Neurofibromatosis: Stable. The patient is to followup with neurology. 3. Chronic migraines: Stable. The patient was continued on her home topiramate and amitriptyline. 4. Hyperlipidemia: The patient was continued on her home atorvastatin. 5. Urinary urge incontinence: The patient was continued on her home oxybutynin. 6. Gastroesophageal reflux disease (GERD). The patient was continue on her home famotidine. [facility]
== END 2016-10-23 20:12 | disposition home or self-care (01) | DRG 58 ==
LOC: M ED 11:25 → M ED INP 19:51 → M MSPAV 23:06
PROVIDERS: ADMIT Internal Medicine; ATTEND Family Medicine
DX: G25.2 Other specified forms of tremor (principal); I10 Essential (primary) hypertension; N39.41 Urge incontinence; Q85.01 Neurofibromatosis, type 1; E78.5 Hyperlipidemia, unspecified; K21.9 Gastro-esophageal reflux disease without esophagitis; R26.81 Unsteadiness on feet; T43.295A Adverse effect of other antidepressants, initial encounter; G43.709 Chronic migraine without aura, not intractable, without status migrainosus; Z79.899 Other long term (current) drug therapy; Z88.8 Allergy status to other drugs, medicaments and biological substances; Z91.048 Other nonmedicinal substance allergy status; Z87.891 Personal history of nicotine dependence

== ENCOUNTER 2017-01-01 12:08 | Emergency (ER) | payer BC ==
[~2017-01-01] VITALS: Ht 162.6 cm; Wt 77.3 kg
[~2017-01-01 12:08] MED LIST: AMIT100TA PO; ATOR1TAB21 PO; B-12100010 INJ; BUPR100T3 PO; BUPR1TAB17 PO; CALC1TAB30 PO; ESTR0.5T3 PO; ESTR1TAB PO; FAMO1TAB11 PO; FAMO1TAB25 PO; METO-207 PO; OXYB5TAB PO; REGL5TAB2 PO; TOPA100T8 PO; VITA100037 PO
[2017-01-01] MEDS ORDERED: NORCO, ANEXSIA 5/325MG TABLET (HYDROcodone/ACETAMINOPHEN) PO ONE (13:15)
[2017-01-01] MEDS ORDERED: NS 1,000 ML IV SCH (13:15)
--- NOTE | 2017-01-01 13:46 | REP ---
Clinical: Syncope . Comparison: 10/21/2016 . Findings: The ventricles, sulci, and cisterns are normal in position and appearance. Deleon-white differentiation is maintained. No acute intracranial hemorrhage, mass/mass effect, pathology or trauma/injury. No evidence for acute infarction. No extra-axial fluid collection. Calvarium is intact. Paranasal sinuses and mastoid air cells are clear. Small soft tissue scalp lesion overlies the right frontal bone similar to prior examination. Impression: Normal noncontrast head CT. No evidence for acute intracranial pathology or trauma/injury. Stable scalp lesion overlies the right frontal bone. Signed by Sukhdev Silver MD 01/01/2017 01:38 P
[2017-01-01 14:04] LABS: BASO % 0.3 % (0.0-1.0); EOS # 0.1 K/mm3 (0.0-0.50); EOS % 2.5 % (0.0-3.0); LARGE UNSTAINED CELL # 0.1 K/mm3 (0.0-0.4); LARGE UNSTAINED CELL % 1.3 % (0.0-4.0); LYMPH # 1.5 K/mm3 (1.5-4.5); LYMPH % 28.8 % (24.0-44.0); MEAN CORPUSCULAR HEMOGLOBIN 30.7 pg (27.0-33.0); MEAN CORPUSCULAR HGB CONC 32.5 g/dl (32.0-36.5); MEAN CORPUSCULAR VOLUME 94.7 fl (80.0-96.0); MONO # 0.2 K/mm3 (0.0-0.8); MONO % 4.1 % (0.0-5.0); NEUTROPHILS # 3.1 K/mm3 (1.8-7.7); NEUTROPHILS % 63.1 % (36.0-66.0); PLATELET COUNT, AUTOMATED 299 k/mm3 (150-450); RED CELL DISTRIBUTION WIDTH 13.2 % (11.5-14.5); WHITE BLOOD COUNT 4.9 K/mm3 (4.0-10.0)
[2017-01-01 14:15] LABS: ALBUMIN/GLOBULIN RATIO 0.95 (1.00-1.93); ALKALINE PHOSPHATASE 121 U/L (45-117); ALT/SGPT 28 U/L (12-78); ANION GAP 4 MEQ/L (8-16); AST/SGOT 14 U/L (15-37); BILIRUBIN,DIRECT < 0.1 MG/DL (0.0-0.2); BILIRUBIN,TOTAL 0.3 MG/DL (0.2-1.0); BLOOD UREA NITROGEN 13 MG/DL (7-18); CALCIUM LEVEL 8.9 MG/DL (8.5-10.1); CARBON DIOXIDE LEVEL 26 MEQ/L (21-32); CHLORIDE LEVEL 110 MEQ/L (98-107); CREATININE FOR GFR 0.95 MG/DL (0.55-1.02); FREE T4 0.82 NG/DL (0.76-1.46); GLOMERULAR FILTRATION RATE > 60.0 (>51); GLUCOSE, FASTING 88 MG/DL (70-105); MAGNESIUM LEVEL 2.2 MG/DL (1.8-2.4); POTASSIUM SERUM 3.8 MEQ/L (3.5-5.1); SODIUM LEVEL 140 MEQ/L (136-145); TOTAL PROTEIN 8.2 GM/DL (6.4-8.2)
[2017-01-01 14:18] LABS: INR 0.97
--- NOTE | 2017-01-01 14:19 | REP ---
PORTABLE CHEST X-RAY: Single view. HISTORY: Syncope, near-syncope. Comparison study June 16, 2013. FINDINGS: There are bibasilar linear opacities. On the right this is more prominent or new when compared to the 2013 study and is compatible with plate-like atelectasis. In the left base there is some linear fibrosis. No infiltrate is seen. Heart is not enlarged. Pulmonary vasculature is not increased. IMPRESSION: Plate-like atelectasis right base. Linear fibrosis left base. Otherwise no acute disease. Signed by Clinton Bustos MD 01/01/2017 03:34 P
[2017-01-01 15:05] VITALS: BP 138/75
[2017-01-01 15:21] LABS: METHADONE URINE NEGATIVE (NEGATIVE)
--- NOTE | 2017-01-02 07:31 | ECGEPIP ---
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
== END 2017-01-01 15:19 | disposition home or self-care (01) ==
LOC: M ED 13:04
DX: R55 Syncope and collapse (principal)

== ENCOUNTER → 2017-01-14 | Outpatient (REF) | payer BC ==
[~2017-01-14] MED LIST changes: -BUPR1TAB17 PO; +BUPR1TAB53 PO; +CYAN1000VL IM; +METF-699 PO; -METO-207 PO; +METO1TAB7 PO; +PRIM50TA6 PO; +TOPA100T12 PO; -TOPA100T8 PO; -VITA100037 PO; +VITA100067 PO
[2017-01-14 20:34] LABS: BASO % 0.8 % (0.0-1.0); EOS # 0.1 K/mm3 (0.0-0.50); EOS % 1.7 % (0.0-3.0); LARGE UNSTAINED CELL # 0.1 K/mm3 (0.0-0.4); LYMPH # 1.7 K/mm3 (1.5-4.5); LYMPH % 26.9 % (24.0-44.0); MEAN CORPUSCULAR HGB CONC 32.2 g/dl (32.0-36.5); MEAN CORPUSCULAR VOLUME 96.1 fl (80.0-96.0); MONO # 0.2 K/mm3 (0.0-0.8); NEUTROPHILS # 4.1 K/mm3 (1.8-7.7); NEUTROPHILS % 65.6 % (36.0-66.0); PLATELET COUNT, AUTOMATED 349 k/mm3 (150-450); WHITE BLOOD COUNT 6.2 K/mm3 (4.0-10.0)
[2017-01-14 20:37] LABS: FOLATE > 24.0 NG/ML; VITAMIN B12 LEVEL 576 PG/ML
[2017-01-14 20:42] LABS: ALBUMIN 3.8 GM/DL (3.2-5.2); ALBUMIN/GLOBULIN RATIO 1.09 (1.00-1.93); ALKALINE PHOSPHATASE 125 U/L (45-117); ALT/SGPT 24 U/L (12-78); ANION GAP 7 MEQ/L (8-16); AST/SGOT 13 U/L (15-37); BILIRUBIN,TOTAL 0.3 MG/DL (0.2-1.0); BLOOD UREA NITROGEN 14 MG/DL (7-18); CALCIUM LEVEL 8.6 MG/DL (8.5-10.1); CARBON DIOXIDE LEVEL 24 MEQ/L (21-32); CHLORIDE LEVEL 108 MEQ/L (98-107); CREATININE FOR GFR 0.88 MG/DL (0.55-1.02); GLOMERULAR FILTRATION RATE > 60.0 (>51); GLUCOSE, FASTING 92 MG/DL (70-105); POTASSIUM SERUM 4.1 MEQ/L (3.5-5.1); SODIUM LEVEL 139 MEQ/L (136-145); TOTAL PROTEIN 7.3 GM/DL (6.4-8.2)
[2017-01-14 21:40] LABS: ERYTHROCYTE SEDIMENTATION RATE 17 mm/hr (0-30)
[2017-01-18 00:10] LABS: Lyme Disease IgG/IgM Antibodie <0.91 ISR (0.00-0.90); Lyme Disease IgM Ab Quantitati <0.80 index (0.00-0.79); VITAMIN E LEVEL 15.6 mg/L (5.3-16.8)
== END ==
LOC: M LABNEURO 17:58
PROVIDERS: ATTEND Physician Assistant Medical
DX: M62.81 Muscle weakness (generalized) (principal); R55 Syncope and collapse; R25.1 Tremor, unspecified

== ENCOUNTER 2017-01-23 10:43 | Observation (INO) | payer BC ==
[~2017-01-23] VITALS: Ht 152.4 cm; Wt 83.8 kg
[~2017-01-23 10:43] MED LIST changes: -CYAN1000VL IM; -METF-699 PO; -PRIM50TA6 PO
[2017-01-23 11:17] LABS: BASO % 0.6 % (0.0-1.0); EOS # 0.2 K/mm3 (0.0-0.50); EOS % 2.5 % (0.0-3.0); LARGE UNSTAINED CELL # 0.2 K/mm3 (0.0-0.4); LARGE UNSTAINED CELL % 2.8 % (0.0-4.0); LYMPH # 1.9 K/mm3 (1.5-4.5); LYMPH % 28.5 % (24.0-44.0); MEAN CORPUSCULAR HEMOGLOBIN 31.6 pg (27.0-33.0); MEAN CORPUSCULAR HGB CONC 33.4 g/dl (32.0-36.5); MEAN CORPUSCULAR VOLUME 94.4 fl (80.0-96.0); MONO # 0.3 K/mm3 (0.0-0.8); MONO % 4.9 % (0.0-5.0); NEUTROPHILS % 60.6 % (36.0-66.0); PLATELET COUNT, AUTOMATED 300 k/mm3 (150-450); WHITE BLOOD COUNT 6.5 K/mm3 (4.0-10.0)
[2017-01-23 11:26] LABS: INR 0.98
[2017-01-23 11:44] LABS: ALBUMIN 3.7 GM/DL (3.2-5.2); ALT/SGPT 27 U/L (12-78); ANION GAP 9 MEQ/L (8-16); AST/SGOT 18 U/L (15-37); BLOOD UREA NITROGEN 13 MG/DL (7-18); CALCIUM LEVEL 9.1 MG/DL (8.5-10.1); CARBON DIOXIDE LEVEL 26 MEQ/L (21-32); CHLORIDE LEVEL 106 MEQ/L (98-107); CREATININE FOR GFR 1.02 MG/DL (0.55-1.02); GLOMERULAR FILTRATION RATE > 60.0 (>51); GLUCOSE, FASTING 93 MG/DL (70-105); SODIUM LEVEL 141 MEQ/L (136-145)
[2017-01-23 11:49] LABS: ALBUMIN/GLOBULIN RATIO 0.93 (1.00-1.93); ALKALINE PHOSPHATASE 123 U/L (45-117); BILIRUBIN,DIRECT < 0.1 MG/DL (0.0-0.2); BILIRUBIN,TOTAL 0.2 MG/DL (0.2-1.0); TOTAL PROTEIN 7.7 GM/DL (6.4-8.2)
--- NOTE | 2017-01-23 13:22 | REP ---
CT of the brain without IV contrast: Comparisons are 11 06/24/2010 and 01/01/2017. There is no hemorrhage or subdural hematoma. There is no edema, mass effect or midline shift. The cortical stripe is unremarkable. The ventricles are normal size and midline. There is a low density left frontal scalp mass, unchanged from 2009, possibly a lipoma. This measures approximate 2.2 cm transversely. There is a round right frontal cutaneous mass measuring 8 mm, also unchanged from 05/17/2010, likely a cyst or lipoma. Impression: Essentially negative CT study of the brain. No change from the comparison studies. Left frontal scalp mass, possibly a lipoma. Right frontal cutaneous mass, likely a cyst or lipoma. Signed by Femi Lopez MD 01/23/2017 01:13 P
--- NOTE | 2017-01-23 13:52 | REP ---
CT CERVICAL SPINE WITHOUT CONTRAST: HISTORY: Syncope. COMPARISON: 05/17/2010. There is no acute fracture or subluxation. A disc bulge with associated osteophyte formation is present at the C5-6 level. There is minimal narrowing of the spinal canal. Uncinate process and/or facet hypertrophy are present at the C3-4 through C5-6 levels. These findings produce minimal narrowing of the neural foramina. The remaining neural foramina are patent. The intervertebral discs are normal in height. Calcification is present in the right tonsil. This is secondary to previous inflammatory disease. A calcification is present in the right thyroid lobe. The left thyroid lobe is normal in appearance. IMPRESSION: 1. There is no acute fracture or subluxation. 2. There is cervical spondylosis at the C3-4 through C5-6 levels. Signed by Linden Hebert MD 01/23/2017 01:54 P
--- NOTE | 2017-01-23 13:59 | REP ---
CT THORACIC SPINE WITHOUT CONTRAST: HISTORY: Syncope. There is no acute fracture or subluxation. There is no disc bulge or herniation. The spinal canal and neural foramina are patent. The intervertebral discs are normal in height. There is spina bifida occulta of T1. IMPRESSION: There is no acute fracture or subluxation. Signed by Linden Hebert MD 01/23/2017 02:07 P
--- NOTE | 2017-01-23 14:02 | REP ---
CT LUMBAR SPINE WITHOUT CONTRAST: HISTORY: Syncope. There is no disc bulge or herniation at the L1-2 through L3-4 levels. The nerves exit the neural foramina without compression. A diffuse disc bulge is present at the L4-5 level. There is minimal compression of the thecal sac. The L4 nerves exit the neural foramina without compression. A diffuse disc bulge is present at the L5-S1 level. This abuts the thecal sac. There is hypertrophy of the posterior articulating facets. The L5 nerves exit the neural foramina without compression. There is no acute fracture or subluxation. The intervertebral discs are normal in height. There is scoliosis convex to the left. IMPRESSION: 1. Diffuse disc bulge at the L4-5 level with minimal thecal sac compression. 2. Diffuse disc bulge at the L5-S1 level. This abuts the thecal sac. Signed by Linden Hebert MD 01/23/2017 02:07 P
[2017-01-23] MEDS ORDERED: CYAN1000VL IM (14:24)
[2017-01-23] MEDS ORDERED: PRIM50TA6 PO (14:25)
[2017-01-23] MEDS ORDERED: METF-699 PO (14:25)
--- NOTE | 2017-01-23 17:06 | HPEPDOC ---
Medical History and Physical Date of Admission Jan 23, 2017 at 15:13 History and Physical PRIMARY CARE PROVIDER: [Dr. Sharpe] ATTENDING: Mónica Waters MD CHIEF COMPLAINT: [syncope] HISTORY OF PRESENT ILLNESS: [51-year-old female with past medical history of hypertension, urge incontinence, neurofibromatosis type I, dyslipidemia, GERD, migraine headaches, presents s/p syncope LOC, patient was talking to her friend while standing (she was standing for approximately 5 minutes) when she syncopized for a few seconds with no prodromal symptoms, denies seizure activity , no post ictal state, denies palpitations, no cp prior to event, patient with extensive neurological history being worked up as outpatient, she had a similar episode 2 weeks ago that was witnessed by her , she states that these events started in october and may have been triggered by the of her mother and her dog. patient is unsteady on her feet needs assistance with standing and ambulating, she follows with Dr. Garvin neurology for NF1 and migraines, has not had a cardiac work up per patient, she denies fevers/chills, no dizziness, no numbness or tingling, denies diarrhea, or nausea/vomiting PAST MEDICAL HISTORY: as per HPI PAST SURGICAL HISTORY: see HPI SOCIAL HISTORY: Marital status: []. Tobacco use:[former smoker quit 30years ago] ETOH: [social] Illicit drug use: [none] FAMILY HISTORY: Father: [denies] Mother: [cardiac disease] ALLERGIES: Please see below. REVIEW OF SYSTEMS: ROS negative except for for mentioned in HPI, CONSTITUTIONAL: [neg]. HEENT: [neg]. CARDIOVASCULAR: [syncope]. RESPIRATORY: [neg]. GASTROINTESTINAL: [neg]. GENITOURINARY: [incontinence]. SKIN: [neg]. MUSCULOSKELETAL: [chronic weakness]. NEUROLOGICAL: [NF1, multiple lesions]. PSYCHIATRIC: [depression]. ENDOCRINE: [denies]. HEMATOLOGIC/LYMPHATIC: [denies]. HOME MEDICATIONS: Please see below. PHYSICAL EXAMINATION: VITAL SIGNS: Vital Sign - Last 24 Hours 01/23/17 01/23/17 01/23/17 01/23/17 10:44 11:08 11:27 11:28 Temp 97.7 Pulse 69 62 Resp 18 B/P (MAP) 109/71 (84) 118/77 (91) Pulse Ox 95 94 O2 Delivery Room Air 01/23/17 01/23/17 01/23/17 01/23/17 11:42 11:43 11:57 11:58 Pulse 62 62 B/P (MAP) 116/74 (88) 123/71 (88) Pulse Ox 93 97 01/23/17 01/23/17 01/23/17 01/23/17 12:13 12:27 12:28 12:43 Pulse 62 64 66 B/P (MAP) 123/72 (89) Pulse Ox 94 95 01/23/17 01/23/17 01/23/17 01/23/17 12:57 12:58 13:05 13:06 Pulse 64 B/P (MAP) 117/76 (90) 115/70 (85) 104/63 (77) Pulse Ox 95 01/23/17 01/23/17 01/23/17 01/23/17 13:08 13:13 13:17 13:18 Pulse 74 61 69 70 B/P (MAP) 93/54 (67) 138/76 (96) 115/70 (85) 104/63 (77) 93/54 (67) 01/23/17 01/23/17 01/23/17 01/23/17 13:32 13:42 13:47 14:02 Pulse 62 60 64 B/P (MAP) 113/71 (85) Pulse Ox 95 95 01/23/17 01/23/17 01/23/17 01/23/17 14:12 14:17 14:27 14:32 Pulse 64 66 B/P (MAP) 118/73 (88) 108/80 (89) 01/23/17 01/23/17 01/23/17 01/23/17 14:42 14:47 14:57 15:02 Pulse 66 68 B/P (MAP) 118/81 (93) 119/58 (78) 01/23/17 01/23/17 15:12 15:17 Pulse 66 B/P (MAP) 121/74 (90) Vital Signs Date Time Temp Pulse Resp B/P (MAP) Pulse Ox O2 Delivery O2 Flow Rate FiO2 01/23/17 10:44 97.7 69 18 109/71 (84) 95 Room Air GENERAL APPEARANCE: [NAD,]. AT/NC HEENT: [PERRL, EOMI, ]. CARDIOVASCULAR: [s1 s2 regular]. LUNGS: cta. ABDOMEN: s,nt,nd . Skin: multiple NF lesions on forehead, forearm, back EXTREMITIES: [no edema]. NEUROLOGICAL: 4+/5 upper ext, 3/5 LE (chronic per patient), spine no step offs Laboratory Tests 01/23/17 11:04 LABORATORY DATA: See below. IMAGING: [CT head Essentially negative CT study of the brain. No change from the comparison studies.Left frontal scalp mass, possibly a lipoma. Right frontal cutaneous mass, likely a cyst or lipoma.] CT LS no acute fx MICROBIOLOGY: Please see below. ASSESSMENT: 51-year-old female with past medical history of hypertension, urge incontinence, neurofibromatosis type I, dyslipidemia, GERD, migraine headaches, presents s/p syncope LOC, patient was talking to her friend while standing (she was standing for approximately 5 minutes) when she syncopized for a few seconds . PLAN: 1. Syncope in a patient with NF1, depression, recent stressful events, migraines , will admit to tele for cardiac monitoring, syncope based on presentation likely orthostatic as there was significant drop in pressure with standing on vital signs, TCAs are known to cause orthostasis however she has been on it for long period of time without adverse effects, theres possiblility of vagal syncope given her neuropathy, shes had MRIs brain in the past along with spinal MRIs and follows with neurology, will obtain echocardiogram to r/o structural cardiac disease, she can follow up with cardiology for outpatient loop recorder tilt table test, place on fall precautions, will order PT evaluation as patient has significant LE weakness appears to be chronic, will send B12, TSH, folate levels. 2. HTN- resume metoprolol 3. HLD- stable resume home med 4. GI/DVT px. Vital Signs Vital Signs Date Time Temp Pulse Resp B/P (MAP) Pulse Ox O2 Delivery O2 Flow Rate FiO2 01/23/17 15:17 66 01/23/17 15:12 121/74 (90) 01/23/17 13:47 95 01/23/17 10:44 97.7 18 Room Air Laboratory Data Labs 24H Laboratory Tests 2 01/23/17 11:04: White Blood Count 6.5, Red Blood Count 4.28, Hemoglobin 13.5, Hematocrit 40.4, Mean Corpuscular Volume 94.4, Mean Corpuscular Hemoglobin 31.6, Mean Corpuscular Hemoglobin Concent 33.4, Red Cell Distribution Width 13.0, Platelet Count 300, Neutrophils (%) (Auto) 60.6, Lymphocytes (%) (Auto) 28.5, Monocytes ( %) (Auto) 4.9, Eosinophils (%) (Auto) 2.5, Basophils (%) (Auto) 0.6, Neutrophils # (Auto) 4.0, Lymphocytes # (Auto) 1.9, Monocytes # (Auto) 0.3, Eosinophils # (Auto) 0.2, Basophils # (Auto) 0.0, Large Unclassified Cells % 2.8 , Large Unclassified Cells # 0.2, Prothrombin Time 13.1, Prothromb Time International Ratio 0.98, Anion Gap 9, Glomerular Filtration Rate > 60.0, Calcium Level 9.1, Aspartate Amino Transf (AST/SGOT) 18, Alanine Aminotransferase (ALT/SGPT) 27, Alkaline Phosphatase 123H, Total Bilirubin 0.2, Direct Bilirubin < 0.1, Total Creatine Kinase 63, Creatine Kinase MB 1.0, Creatine Kinase MB Relative Index 1.58, Troponin I < 0.02, B-Type Natriuretic Peptide 7.3, Total Protein 7.7, Albumin 3.7, Albumin/Globulin Ratio 0.93L, Thyroid Stimulating Hormone (TSH) 1.480 CBC/BMP Laboratory Tests 01/23/17 11:04 Red Blood Count 4.28, Mean Corpuscular Volume 94.4, Mean Corpuscular Hemoglobin 31.6, Mean Corpuscular Hemoglobin Concent 33.4, Red Cell Distribution Width 13.0 , Neutrophils (%) (Auto) 60.6, Lymphocytes (%) (Auto) 28.5, Monocytes (%) (Auto ) 4.9, Eosinophils (%) (Auto) 2.5, Basophils (%) (Auto) 0.6, Neutrophils # (Auto ) 4.0, Lymphocytes # (Auto) 1.9, Monocytes # (Auto) 0.3, Eosinophils # (Auto) 0.2, Basophils # (Auto) 0.0 Home Medications Scheduled (Calcium 500+D 500-200 mg-Unit) 1 Tab Tab, 1 TAB PO DAILY Amitriptyline HCl (Amitriptyline HCl) 100 Mg Tab, 100 MG PO QHS Atorvastatin Calcium (Atorvastatin Calcium) 20 Mg Tab, 20 MG PO DAILY Cyanocobalamin (Cyanocobalamin) 1,000 Mcg/1 Ml Inj, 1,000 MCG IM MTHLY 17 OF EACH MONTH Estradiol (Estrace) 0.5 Mg Tab, 0.5 MG PO DAILY Famotidine (Famotidine) 20 Mg Tab, 20 MG PO BID Metformin Hydrochloride (Metformin HCl ER) 500 Mg Tab, 500 MG PO DAILY Metoprolol Succinate (Metoprolol Succinate ER) 50 Mg Tab, 50 MG PO DAILY Oxybutynin Chloride (Oxybutynin Chloride ER) 5 Mg Tab, 5 MG PO DAILY Primidone (Primidone) 50 Mg Tab, 50 MG PO BID NEW MED PATIENT TO START TODAY Topiramate (Topamax) 100 Mg Tab, 100 MG PO BID Vitamin D (Vitamin D) 1,000 Unit Cap, 1,000 UNIT PO DAILY Allergies Coded Allergies: Bupropion (Verified Allergy, Unknown, 01/01/17) Dust (Unverified Allergy, Unknown, 06/13/08) Citalopram (Unverified Adverse Reaction, Unknown, WGT GAIN, 10/05/12) Dextran (Unverified Adverse Reaction, Unknown, PROMETRIUM CAUSES BLACK OUTS, 01/01/17) MÓNICA WATERS MD Jan 23, 2017 16:52
[2017-01-23] MEDS ORDERED: ACETAMINOPHEN TAB 650MG DOSE (2X325MG) PO PRN (17:30)
[2017-01-23 20:18] VITALS: BP 106/63
[2017-01-23] MEDS: IBUPROFEN 600 MG TAB PO PRN (20:57)
[2017-01-23] MEDS: AMITRIPTYLINE 50 MG TAB PO SCH (20:58)
[2017-01-23] MEDS: PRIMIDONE 50 MG TAB PO SCH (20:58)
[2017-01-23] MEDS: TOPIRAMATE (TopAMAX) 100 MG TAB PO SCH (20:59)
[2017-01-23] MEDS: FAMOTIDINE 20 MG TAB PO SCH (21:00)
[2017-01-24] VITALS (8 sets, daily range): BP systolic 112–129; BP diastolic 58–78
[2017-01-24 08:11] LABS: ALBUMIN 3.2 GM/DL (3.2-5.2); ALBUMIN/GLOBULIN RATIO 0.94 (1.00-1.93); ALKALINE PHOSPHATASE 110 U/L (45-117); ALT/SGPT 22 U/L (12-78); ANION GAP 7 MEQ/L (8-16); AST/SGOT 12 U/L (15-37); BILIRUBIN,TOTAL 0.4 MG/DL (0.2-1.0); BLOOD UREA NITROGEN 14 MG/DL (7-18); CALCIUM LEVEL 8.1 MG/DL (8.5-10.1); CARBON DIOXIDE LEVEL 24 MEQ/L (21-32); CHLORIDE LEVEL 108 MEQ/L (98-107); CREATININE FOR GFR 0.94 MG/DL (0.55-1.02); GLOMERULAR FILTRATION RATE > 60.0 (>51); GLUCOSE, FASTING 99 MG/DL (70-105); MAGNESIUM LEVEL 2.3 MG/DL (1.8-2.4); PHOSPHORUS LEVEL 3.7 MG/DL (2.5-4.9); SODIUM LEVEL 139 MEQ/L (136-145); T UPTAKE 33 % (30-39); THYROXINE (T4) 7.3 UG/DL (4.5-12.0); TOTAL PROTEIN 6.6 GM/DL (6.4-8.2)
[2017-01-24] MEDS: oxyBUTYnin *DITROPAN XL* 5 MG TABCR PO SCH (08:43)
[2017-01-24] MEDS: FAMOTIDINE 20 MG TAB PO SCH ×2 (08:43→21:59)
[2017-01-24] MEDS: ATORVASTATIN 20 MG TAB PO SCH (08:43)
[2017-01-24] MEDS: TOPIRAMATE (TopAMAX) 100 MG TAB PO SCH ×2 (08:43→21:59)
[2017-01-24] MEDS: VITAMIN D 1,000 INTERNATIONAL UNITS TABLET PO SCH (08:43)
[2017-01-24] MEDS: METOPROLOL SUCC (TopROL XL) 50MG **XL** TAB PO SCH (08:43)
[2017-01-24] MEDS: PRIMIDONE 50 MG TAB PO SCH ×2 (08:43→21:59)
[2017-01-24] MEDS: IBUPROFEN 600 MG TAB PO PRN (08:44)
[2017-01-24] MEDS: ENOXAPARIN 40 MG/0.4 ML SYRINGE (J1650) SC SCH (08:44)
--- NOTE | 2017-01-24 10:45 | IPN ---
DATE: 01/23/2107 Barbara is a patient of Dr. Jason. She was admitted with a syncopal spell versus seizure. She has had no recurrence since admission. She has been followed by neurology, is well known to Dr. Marquez and Dr. Mcgill. She had a recent brain MRI 10/22/2016 that did not show any significant findings. Since being in the hospital here she has done well on the interim bed in the emergency room, walking about dizziness or lightheadedness. PHYSICAL EXAMINATION: 124/68, pulse 60, respiratory rate 18, 96% oxygen saturation. GENERAL APPEARANCE: She is alert and conversant in no distress. LUNGS: Clear. HEART: Regular rate and rhythm. ABDOMEN: Soft, nontender. No peripheral edema. Normal strength in the arms and legs. Normal coordination and sensation. I did not test her gait. LABORATORIES: Electrolytes unremarkable. CBC yesterday was normal. IMPRESSION: 1. Syncopal episode versus seizure. It sounds more like she had orthostasis. She is improved. She has had a recent brain MRI, so we do not need to repeat that. An EEG would be reasonable. She is on her home medications including Topamax and amitriptyline for prophylaxis of migraines. If she is stable, she may be able to go home tomorrow.
--- NOTE | 2017-01-24 11:24 | ECGEPIP ---
Stationary ECG Study 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
[2017-01-24] MEDS: AMITRIPTYLINE 50 MG TAB PO SCH (21:59)
[2017-01-25 03:54] VITALS: BP 113/65
[2017-01-25 08:00] VITALS: BP 128/59
[2017-01-25 09:27] VITALS: BP 128/59
[2017-01-25] MEDS: ATORVASTATIN 20 MG TAB PO SCH (09:27)
[2017-01-25] MEDS: METOPROLOL SUCC (TopROL XL) 50MG **XL** TAB PO SCH (09:27)
[2017-01-25] MEDS: FAMOTIDINE 20 MG TAB PO SCH (09:27)
[2017-01-25] MEDS: PRIMIDONE 50 MG TAB PO SCH (09:27)
[2017-01-25] MEDS: VITAMIN D 1,000 INTERNATIONAL UNITS TABLET PO SCH (09:27)
[2017-01-25] MEDS: TOPIRAMATE (TopAMAX) 100 MG TAB PO SCH (09:27)
[2017-01-25] MEDS: ENOXAPARIN 40 MG/0.4 ML SYRINGE (J1650) SC SCH (09:28)
[2017-01-25] MEDS: oxyBUTYnin *DITROPAN XL* 5 MG TABCR PO SCH (09:28)
[2017-01-25] MEDS: IBUPROFEN 600 MG TAB PO PRN (09:31)
--- NOTE | 2017-01-25 10:17 | ECHO ---
DATE OF PROCEDURE: 01/24/2017 DATE OF : 1965 AGE: 52 REFERRING PROVIDER: ER-MD PATIENT LOCATION: Emergency department. REASON FOR ECHOCARDIOGRAM: Syncope. 2D MEASUREMENTS: IVS: 1.0 cm LV: 4.2 cm LVPW: 0.9 cm LA: 4.2 cm Aortic root: 2.8 cm Ascending aorta: 3.3 cm RV: 2.8 cm DOPPLER MEASUREMENTS: Mitral E: 0.64 Mitral A: 0.60 Ratio 1.08 Maximum tricuspid valve velocity: 2.0 m/s 2D COMMENTS: 1. Normal left ventricular size, wall thickness and normal global left ventricular systolic function. The estimated global left ventricular systolic ejection fraction is 60% to 65%. 2. Mildly enlarged left atrium. Normal right atrium and right ventricle. 3. The atrial septum appeared to be normal without evidence of defect or shunt. 4. Normal aortic root. 5. Trace pericardial effusion noted, no evidence of cardiac tamponade. 6. Minimally calcified aortic valve with normal leaflet excursion. Normal mitral valve, tricuspid valve, and pulmonic valve. The proximal pulmonary artery branches also appear to be normal in limited views. 7. The inferior vena cava was not well visualized. DOPPLER: Only trace tricuspid regurgitation detected. The calculated pulmonary artery systolic pressure was normal, less than 30 mmHg. IMPRESSION: 1. Normal global left ventricular systolic function. Not mentioned above, assessment of the left ventricular diastolic function also appeared to be normal. 2. Trace tricuspid regurgitation with a normal calculated pulmonary artery systolic pressure. 3. Trace pericardial effusion noted. No evidence of cardiac tamponade. 4. Isolated mildly dilated left atrium, no mitral valve disease detected. Also , there was no detected left ventricular diastolic dysfunction. The etiology of the isolated dilated left atrium is not quite clear, may be artifactual. MTDD
--- NOTE | 2017-01-25 10:35 | IPN ---
DATE: 01/25/2017 Barbara is seen in progressive care unit (PCU). Nursing staff note she is unsteady when she tries to get out of bed. Patient states that this has been present for several months and acutely worse. Physical therapy is working with her. She has had no syncope during this admission, nor any arrhythmias on telemetry. PHYSICAL EXAMINATION: 124/69, pulse 64, respiratory rate 18, 94% oxygen saturation. General appearance: Alert and conversant, looks mildly depressed. No facial droop or weakness. Lungs: Clear. Heart: Regular rate and rhythm. Abdomen: Soft, nontender. No masses. No peripheral edema. Coordination: Normal povsvu-im-cshv testing. No Romberg is present. She has trouble pushing herself out of her bed but walks upright. IMPRESSION: Frequent falls. Query syncope. There has been no arrhythmia. I planned an electroencephalogram (EEG). Patient tells me she had one done a few weeks ago at [facility]. I do not have access to that report and I do not have the most recent in our record. Dr. Mcgill knows her. He is on-call today. I called the answering service, eventually gave them all the information they needed so they would page him for me, which took a while. I will ask him to see her while she is in hospital. She would like to go home. Nursing staff note she is unsteady and she looks unsteady when she tries to get up, but when she is up she apparently can ambulate back and forth to the bathroom. I would like neurology to see her before she goes.
[2017-01-25] MEDS ORDERED: SLF 3 ML SYR IV PRN (11:00)
[2017-01-25 12:00] VITALS: BP 109/67
[2017-01-25] MEDS ORDERED: SLF 3 ML SYR IV SCH (14:00)
[2017-01-25 16:00] VITALS: BP 122/65
[2017-01-26 10:05] LABS: FOLATE > 24.0 NG/ML (>5.4); VITAMIN B12 LEVEL 1053 PG/ML (247-911)
== END 2017-01-25 18:25 | disposition home or self-care (01) ==
LOC: M ED 10:43 → M ED INP 15:13 → M PCU 01-24 14:30
PROVIDERS: ADMIT Internal Medicine; ATTEND Family Medicine
DX: R55 Syncope and collapse (principal); I10 Essential (primary) hypertension; E78.4 Other hyperlipidemia; K21.9 Gastro-esophageal reflux disease without esophagitis; Z87.891 Personal history of nicotine dependence; F32.9 Major depressive disorder, single episode, unspecified; Q85.01 Neurofibromatosis, type 1; Z79.899 Other long term (current) drug therapy; Z88.8 Allergy status to other drugs, medicaments and biological substances
CPT/HCPCS: 36415; 70450; 72125; 72128; 72131; 80048; 80053; 80076; 82550; 82553; 82607; 82746; 83735; 83880; 84100; 84436; 84443; 84479; 85025; 85610; 93005; 93041; 94760; 96372; 97161; 99285; J1650

== ENCOUNTER → 2017-03-04 | Outpatient (REF) | payer BC ==
[~2017-03-04] MED LIST changes: +CYAN1000VL IM; +METF-699 PO; +PRIM50TA6 PO
== END ==
LOC: M LABNEURO 12:51
PROVIDERS: ATTEND Psychiatry & Neurology Neurology
DX: G37.9 Demyelinating disease of central nervous system, unspecified (principal)

== ENCOUNTER → 2017-03-24 | Outpatient (REF) | payer BC ==
[~2017-03-24] MED LIST changes: +REGL10TA6 PO; +ZONI100C2 PO
[2017-03-24 12:11] LABS: BASO % 0.4 % (0.0-1.0); EOS # 0.1 K/mm3 (0.0-0.50); EOS % 2.6 % (0.0-3.0); LARGE UNSTAINED CELL # 0.1 K/mm3 (0.0-0.4); LARGE UNSTAINED CELL % 2.7 % (0.0-4.0); LYMPH # 1.5 K/mm3 (1.5-4.5); LYMPH % 30.9 % (24.0-44.0); MEAN CORPUSCULAR HEMOGLOBIN 31.5 pg (27.0-33.0); MEAN CORPUSCULAR HGB CONC 33.6 g/dl (32.0-36.5); MEAN CORPUSCULAR VOLUME 93.8 fl (80.0-96.0); MONO # 0.3 K/mm3 (0.0-0.8); MONO % 5.5 % (0.0-5.0); NEUTROPHILS # 2.8 K/mm3 (1.8-7.7); PLATELET COUNT, AUTOMATED 321 k/mm3 (150-450); RED CELL DISTRIBUTION WIDTH 14.2 % (11.5-14.5); WHITE BLOOD COUNT 4.9 K/mm3 (4.0-10.0)
[2017-03-24 12:35] LABS: ALBUMIN 3.6 GM/DL (3.2-5.2); ALBUMIN/GLOBULIN RATIO 1.06 (1.00-1.93); BILIRUBIN,TOTAL 0.3 MG/DL (0.2-1.0); CALCIUM LEVEL 8.3 MG/DL (8.5-10.1); CREATININE FOR GFR 1.03 MG/DL (0.55-1.02); GLOMERULAR FILTRATION RATE 59.7 (>51); PERCENT SATURATION 28.3 % (13.2-45.0); POTASSIUM SERUM 4.2 MEQ/L (3.5-5.1)
== END ==
LOC: M LABDRAW1 10:07
PROVIDERS: ATTEND Family Medicine
DX: D50.9 Iron deficiency anemia, unspecified (principal); I10 Essential (primary) hypertension; R73.01 Impaired fasting glucose

== ENCOUNTER → 2017-03-25 | Outpatient (REF) | payer BC | LOC: M LABDRAW1 11:49 | PROVIDERS: ATTEND Family Medicine | DX: R73.01 Impaired fasting glucose (principal); I10 Essential (primary) hypertension; D50.9 Iron deficiency anemia, unspecified ==

== ENCOUNTER → 2017-03-30 | Outpatient (REF) | payer BC ==
[2017-03-30 15:24] LABS: ALBUMIN 3.7 GM/DL (3.2-5.2); ALBUMIN/GLOBULIN RATIO 1.03 (1.00-1.93); ALKALINE PHOSPHATASE 143 U/L (45-117); ALT/SGPT 31 U/L (12-78); ANION GAP 11 MEQ/L (8-16); AST/SGOT 12 U/L (15-37); BILIRUBIN,TOTAL 0.3 MG/DL (0.2-1.0); BLOOD UREA NITROGEN 10 MG/DL (7-18); CALCIUM LEVEL 8.6 MG/DL (8.5-10.1); CARBON DIOXIDE LEVEL 23 MEQ/L (21-32); CHLORIDE LEVEL 107 MEQ/L (98-107); CREATININE FOR GFR 0.86 MG/DL (0.55-1.02); GLOMERULAR FILTRATION RATE > 60.0 (>51); GLUCOSE, FASTING 79 MG/DL (70-105); POTASSIUM SERUM 4.3 MEQ/L (3.5-5.1); SODIUM LEVEL 141 MEQ/L (136-145); TOTAL PROTEIN 7.3 GM/DL (6.4-8.2)
== END ==
LOC: M SFHCPLAZ 11:59
PROVIDERS: ATTEND Family Medicine
DX: R30.0 Dysuria (principal)

== ENCOUNTER → 2017-04-07 | Outpatient (CLI) | payer BC ==
[~2017-04-07] MED LIST changes: +LIDOCAINE 1% MDV 20ML VIAL As Ordered ONE; +LIDOCAINE 1% SDV INJ 30 ML VIAL As Ordered ONE; +MIDAZOLAM INJ 2 MG/2 ML VIAL (J2250) As Ordered ONE; +fentaNYL 100 MCG/2 ML INJECTION (J3010) As Ordered ONE
[2017-04-07 17:46] LABS: GLUCOSE CSF 55 MG/DL (40-75)
[2017-04-07 18:37] LABS: APPEARANCE, CSF CLEAR (CLEAR); COLOR, CSF COLORLESS (COLORLESS); CSF DIFF IF INDICATED? NO (NO); CSF TUBE# CELL CNT TUBE 3
[2017-04-08 08:37] LABS: CSF GROUP B STREP NEGATIVE (NEGATIVE); CSF H. INFLUENZA NEGATIVE (NEGATIVE); CSF N MENINGITIDIS ACYW135 NEGATIVE (NEGATIVE); CSF STREP PNUEMO NEGATIVE (NEGATIVE)
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
== END ==
LOC: M PAIN 14:00
PROVIDERS: ATTEND Anesthesiology
DX: M54.5 Low back pain (principal); N39.41 Urge incontinence; M51.16 Intervertebral disc disorders with radiculopathy, lumbar region; M54.2 Cervicalgia; F32.9 Major depressive disorder, single episode, unspecified; G43.909 Migraine, unspecified, not intractable, without status migrainosus; I10 Essential (primary) hypertension; K21.9 Gastro-esophageal reflux disease without esophagitis; E53.8 Deficiency of other specified B group vitamins; E78.2 Mixed hyperlipidemia; G47.33 Obstructive sleep apnea (adult) (pediatric); E55.9 Vitamin D deficiency, unspecified; Z87.891 Personal history of nicotine dependence
CPT/HCPCS: 36415; 62270; 82784; 82945; 83916; 84157; 87015; 87070; 87102; 87205; 87252; 87802; 87899; 88108; 88313; 89050; 99152; 99153; J2250; J3010

== ENCOUNTER 2017-05-18 11:40 | Emergency (ER) | payer BC ==
[~2017-05-18] VITALS: Ht 162.6 cm; Wt 86.4 kg
[~2017-05-18 11:40] MED LIST changes: -LIDOCAINE 1% MDV 20ML VIAL As Ordered ONE; -LIDOCAINE 1% SDV INJ 30 ML VIAL As Ordered ONE; -MIDAZOLAM INJ 2 MG/2 ML VIAL (J2250) As Ordered ONE; -REGL10TA6 PO; -ZONI100C2 PO; -fentaNYL 100 MCG/2 ML INJECTION (J3010) As Ordered ONE
[2017-05-18] MEDS ORDERED: OXYB5TAB PO (11:58)
[2017-05-18] MEDS ORDERED: ESTR1TAB PO (11:58)
[2017-05-18] MEDS ORDERED: ZONI100C2 PO (11:58)
[2017-05-18] MEDS ORDERED: diphenhydrAMINE INJ 50MG/ML VIAL (J1200) IV STA (12:35)
[2017-05-18] MEDS ORDERED: METOCLOPRAMIDE INJ 10MG/2ML VIAL (J2765) IV ONE (12:45)
[2017-05-18] MEDS ORDERED: NS 1,000 ML IV ONE (12:45)
[2017-05-18 13:07] LABS: BASO % 0.7 % (0.0-1.0); EOS # 0.1 10^3/uL (0.0-0.50); EOS % 1.7 % (0.0-3.0); LYMPH # 1.6 10^3/uL (1.5-4.5); LYMPH % 26.3 % (24.0-44.0); MEAN CORPUSCULAR HEMOGLOBIN 30.7 pg (27.0-33.0); MEAN CORPUSCULAR HGB CONC 32.7 g/dl (32.0-36.5); MEAN CORPUSCULAR VOLUME 93.7 fl (80.0-96.0); MONO # 0.4 10^3/uL (0.0-0.8); MONO % 6.7 % (0.0-5.0); NEUTROPHILS # 3.8 10^3/uL (1.8-7.7); NEUTROPHILS % 63.6 % (36.0-66.0); PLATELET COUNT, AUTOMATED 327 10^3/uL (150-450); RED CELL DISTRIBUTION WIDTH 14.1 % (11.5-14.5)
--- NOTE | 2017-05-18 13:17 | REP ---
Clinical: Altered mental status. Comparison: 01/23/2017, 05/17/2010. Findings: The ventricles, sulci, and cisterns are normal in position and appearance. Deleon-white differentiation is maintained. No acute intracranial hemorrhage, mass/mass effect, pathology or trauma/injury. No evidence for acute infarction. No extra-axial fluid collection. Calvarium is intact. Paranasal sinuses and mastoid air cells are clear. Soft tissue swelling over the left frontal bone and 9 mm soft tissue nodule over the right frontal bone remain stable. Impression: 1. Stable soft tissue swelling and nodule over the frontal bones are unchanged and likely chronic/benign. 2. No evidence for acute intracranial pathology or trauma/injury. Signed by Sukhdev Silver MD 05/18/2017 01:08 P
[2017-05-18 13:34] VITALS: BP 136/82
[2017-05-18] MEDS ORDERED: KETOROLAC 30 MG/ML VIAL (J1885) IV ONE (13:45)
[2017-05-18 13:48] LABS: ALBUMIN 3.9 GM/DL (3.2-5.2); ALBUMIN/GLOBULIN RATIO 1.08 (1.00-1.93); ALKALINE PHOSPHATASE 145 U/L (45-117); ALT/SGPT 50 U/L (12-78); ANION GAP 8 MEQ/L (8-16); AST/SGOT 26 U/L (7-37); BILIRUBIN,DIRECT < 0.1 MG/DL (0.0-0.2); BILIRUBIN,TOTAL 0.3 MG/DL (0.2-1.0); BLOOD UREA NITROGEN 9 MG/DL (7-18); CALCIUM LEVEL 8.6 MG/DL (8.5-10.1); CARBON DIOXIDE LEVEL 23 MEQ/L (21-32); CHLORIDE LEVEL 111 MEQ/L (98-107); CREATININE FOR GFR 0.88 MG/DL (0.55-1.02); GLOMERULAR FILTRATION RATE > 60.0 (>51); GLUCOSE, FASTING 82 MG/DL (70-105); POTASSIUM SERUM 4.3 MEQ/L (3.5-5.1); SODIUM LEVEL 142 MEQ/L (136-145); TOTAL PROTEIN 7.5 GM/DL (6.4-8.2)
--- NOTE | 2017-05-18 13:48 | REP ---
Chest two views HISTORY: Chest pain Linear densities are present in the lower lobes consistent with scarring. The heart is normal in size. The pulmonary vasculature is normal in appearance. The bony structure is intact. IMPRESSION: Bibasilar scarring. Signed by Linden Hebert MD 05/18/2017 01:39 P
[2017-05-18] MEDS ORDERED: REGL10TA6 PO (14:56)
--- NOTE | 2017-05-18 18:34 | ECGEPIP ---
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
== END 2017-05-18 15:34 | disposition home or self-care (01) ==
LOC: M ED 11:40
DX: G43.909 Migraine, unspecified, not intractable, without status migrainosus (principal); E11.9 Type 2 diabetes mellitus without complications; I10 Essential (primary) hypertension; Z79.899 Other long term (current) drug therapy; Z79.84 Long term (current) use of oral hypoglycemic drugs; Z88.8 Allergy status to other drugs, medicaments and biological substances; J30.89 Other allergic rhinitis
CPT/HCPCS: 36415; 70450; 71020; 80048; 80076; 82550; 82553; 85025; 93005; 93041; 94760; 96374; 96375; 99284; J1200; J1885; J2765

== ENCOUNTER → 2017-07-23 | Outpatient (REF) | payer BC ==
[2017-07-23 12:18] LABS: ALBUMIN 3.6 GM/DL (3.2-5.2); ALBUMIN/GLOBULIN RATIO 1.06 (1.00-1.93); ALKALINE PHOSPHATASE 88 U/L (45-117); ALT/SGPT 24 U/L (12-78); ANION GAP 6 MEQ/L (8-16); AST/SGOT 11 U/L (7-37); BILIRUBIN,TOTAL 0.3 MG/DL (0.2-1.0); BLOOD UREA NITROGEN 13 MG/DL (7-18); CALCIUM LEVEL 8.8 MG/DL (8.5-10.1); CARBON DIOXIDE LEVEL 28 MEQ/L (21-32); CHLORIDE LEVEL 112 MEQ/L (98-107); CREATININE FOR GFR 0.96 MG/DL (0.55-1.02); GLOMERULAR FILTRATION RATE > 60.0 (>51); GLUCOSE, FASTING 93 MG/DL (70-105); MAGNESIUM LEVEL 2.4 MG/DL (1.8-2.4); POTASSIUM SERUM 4.5 MEQ/L (3.5-5.1); SODIUM LEVEL 146 MEQ/L (136-145)
== END ==
LOC: M SFHCPLAZ 08:24
DX: D50.9 Iron deficiency anemia, unspecified (principal)
CPT/HCPCS: 83735

== ENCOUNTER → 2017-07-30 | Outpatient (REF) | payer BC ==
[2017-07-30 13:15] LABS: BASO % 0.8 % (0.0-1.0); EOS # 0.1 10^3/uL (0.0-0.50); EOS % 1.9 % (0.0-3.0); HEMATOCRIT 43.8 % (36.0-47.0); HEMOGLOBIN 14.1 g/dl (12.0-16.0); IMMATURE GRANULOCYTE # 0.1 10^3/uL (0-0); LYMPH # 1.4 10^3/uL (1.5-4.5); LYMPH % 27.2 % (24.0-44.0); MEAN CORPUSCULAR HEMOGLOBIN 30.9 pg (27.0-33.0); MEAN CORPUSCULAR HGB CONC 32.2 g/dl (32.0-36.5); MEAN CORPUSCULAR VOLUME 95.8 fl (80.0-96.0); MONO # 0.4 10^3/uL (0.0-0.8); MONO % 7.5 % (0.0-5.0); NEUTROPHILS # 3.2 10^3/uL (1.8-7.7); NEUTROPHILS % 61.6 % (36.0-66.0); PLATELET COUNT, AUTOMATED 289 10^3/uL (150-450); RED BLOOD COUNT 4.57 10^6/uL (4.00-5.40); RED CELL DISTRIBUTION WIDTH 13.5 % (11.5-14.5); WHITE BLOOD COUNT 5.2 10^3/uL (4.0-10.0)
[2017-07-30 13:25] LABS: HEMATOCRIT 43.8 % (36.0-47.0)
[2017-07-30 13:35] LABS: ESTIMATED AVERAGE GLUCOSE 114 MG/DL (60-110); HEMOGLOBIN A1c 5.6 %
[2017-07-30 14:14] LABS: C REACTIVE PROTEIN QUANTITATIV < 0.30 MG/DL (0.00-0.30); CHOLESTEROL LEVEL 173 MG/DL (<200); CHOLESTEROL RISK RATIO 2.306 (<5); CPK CREATINE PHOSPHOKINASE 53 U/L (26-192); FREE T4 0.85 NG/DL (0.76-1.46); HDL CHOLESTEROL 75 MG/DL (>40); LDL CHOLESTEROL 71.8 MG/DL (<100); NON-HDL-C 98 MG/DL; THYROID STIMULATING HORMONE 0.928 uIU/ML (0.358-3.740); TRIGLYCERIDES LEVEL 131 MG/DL (<150)
[2017-07-30 14:18] LABS: VITAMIN B12 LEVEL 1053 PG/ML (247-911)
[2017-07-31 13:03] LABS: PRETREATED FOLATE FOR RBCFOL 15.3 NG/ML; RBC FOLATE 733.6 NG/ML (280-791)
[2017-07-31 14:13] LABS: INSULIN LEVEL 15.5 uIU/mL (2.6-24.9)
== END ==
LOC: M SFHCPLAZ 11:56
DX: D50.9 Iron deficiency anemia, unspecified (principal); R73.01 Impaired fasting glucose; E53.8 Deficiency of other specified B group vitamins; E78.2 Mixed hyperlipidemia

== ENCOUNTER → 2017-11-27 | Outpatient (REF) | payer MEDICAID ==
[2017-11-27 10:46] LABS: BASO % 0.9 % (0.0-1.0); EOS # 0.1 10^3/uL (0.0-0.50); EOS % 2.4 % (0.0-3.0); HEMATOCRIT 41.6 % (36.0-47.0); HEMOGLOBIN 13.6 g/dl (12.0-15.5); IMMATURE GRANULOCYTE % 0.6 % (0-3.0); LYMPH # 1.5 10^3/uL (1.5-4.5); LYMPH % 32.1 % (24.0-44.0); MEAN CORPUSCULAR HEMOGLOBIN 32.1 pg (27.0-33.0); MEAN CORPUSCULAR HGB CONC 32.7 g/dl (32.0-36.5); MEAN CORPUSCULAR VOLUME 98.1 fl (80.0-96.0); MONO # 0.5 10^3/uL (0.0-0.8); MONO % 10.1 % (0.0-5.0); NEUTROPHILS # 2.5 10^3/uL (1.8-7.7); NEUTROPHILS % 53.9 % (36.0-66.0); PLATELET COUNT, AUTOMATED 280 10^3/uL (150-450); RED BLOOD COUNT 4.24 10^6/uL (4.00-5.40); RED CELL DISTRIBUTION WIDTH 13.4 % (11.5-14.5); RETIC HEMOGLOBIN EQUIVALENT 38.3 pg (24-36); RETICULOCYTE # 88.6 10^9/L (17-77); RETICULOCYTE % 2.1 % (0.5-1.5); WHITE BLOOD COUNT 4.7 10^3/uL (4.0-10.0)
[2017-11-27 10:57] LABS: ALBUMIN 3.7 GM/DL (3.2-5.2); ALBUMIN/GLOBULIN RATIO 1.23 (1.00-1.93); ALKALINE PHOSPHATASE 84 U/L (45-117); ALT/SGPT 25 U/L (12-78); ANION GAP 8 MEQ/L (8-16); AST/SGOT 13 U/L (7-37); BILIRUBIN,TOTAL 0.4 MG/DL (0.2-1.0); BLOOD UREA NITROGEN 15 MG/DL (7-18); CALCIUM LEVEL 8.4 MG/DL (8.5-10.1); CARBON DIOXIDE LEVEL 28 MEQ/L (21-32); CHLORIDE LEVEL 107 MEQ/L (98-107); CREATININE FOR GFR 0.85 MG/DL (0.55-1.30); GLOMERULAR FILTRATION RATE > 60.0 (>51); GLUCOSE, FASTING 91 MG/DL (70-100); POTASSIUM SERUM 4.4 MEQ/L (3.5-5.1); SODIUM LEVEL 143 MEQ/L (136-145); TOTAL PROTEIN 6.7 GM/DL (6.4-8.2)
[2017-11-27 11:10] LABS: TOTAL 25(OH) VITAMIN D 60.1 NG/ML (30.0-100.0)
[2017-11-27 11:11] LABS: PTH INTACT 42.4 PG/ML (18.5-88.0)
[2017-11-28 10:14] LABS: H PYLORI SERUM QUANT IgG ABY 0.48 (0.00-0.79)
== END ==
LOC: M SFHCPLAZ 08:47
DX: E55.9 Vitamin D deficiency, unspecified (principal); I10 Essential (primary) hypertension; M17.12 Unilateral primary osteoarthritis, left knee

== ENCOUNTER → 2017-12-08 | Outpatient (CLI) | payer OTHER | LOC: M WHC 12:56 | DX: R92.2 Inconclusive mammogram (principal); R92.1 Mammographic calcification found on diagnostic imaging of breast | CPT/HCPCS: 77067 ==

== ENCOUNTER → 2018-01-01 | Outpatient (REF) | payer OTHER, MEDICAID | LOC: M LAB REF 11:52 | DX: C44.81 Basal cell carcinoma of overlapping sites of skin (principal) | CPT/HCPCS: 88305 ==

== ENCOUNTER → 2018-01-08 | Outpatient (CLI) | payer OTHER | LOC: M RAD 09:16 | DX: R92.8 Other abnormal and inconclusive findings on diagnostic imaging of breast (principal) | CPT/HCPCS: 77065 ==

== ENCOUNTER → 2018-03-19 | Outpatient (REF) | payer OTHER ==
[2018-03-19 12:55] LABS: BASO % 0.8 % (0.0-1.0); EOS # 0.1 10^3/uL (0.0-0.50); EOS % 1.4 % (0.0-3.0); HEMATOCRIT 43.6 % (36.0-47.0); HEMOGLOBIN 14.2 g/dl (12.0-15.5); IMMATURE GRANULOCYTE % 0.6 % (0-3.0); LYMPH # 1.5 10^3/uL (1.5-4.5); MEAN CORPUSCULAR HEMOGLOBIN 32.1 pg (27.0-33.0); MEAN CORPUSCULAR HGB CONC 32.6 g/dl (32.0-36.5); MEAN CORPUSCULAR VOLUME 98.6 fl (80.0-96.0); MONO # 0.4 10^3/uL (0.0-0.8); NEUTROPHILS # 3.1 10^3/uL (1.8-7.7); NEUTROPHILS % 61.2 % (36.0-66.0); PLATELET COUNT, AUTOMATED 328 10^3/uL (150-450); RED BLOOD COUNT 4.42 10^6/uL (4.00-5.40); RED CELL DISTRIBUTION WIDTH 12.8 % (11.5-14.5); WHITE BLOOD COUNT 5.1 10^3/uL (4.0-10.0)
[2018-03-19 13:09] LABS: ALBUMIN/GLOBULIN RATIO 1.14 (1.00-1.93); ALKALINE PHOSPHATASE 133 U/L (45-117); ALT/SGPT 39 U/L (12-78); ANION GAP 8 MEQ/L (8-16); AST/SGOT 17 U/L (7-37); BILIRUBIN,TOTAL 0.4 MG/DL (0.2-1.0); BLOOD UREA NITROGEN 12 MG/DL (7-18); CALCIUM LEVEL 9.4 MG/DL (8.5-10.1); CARBON DIOXIDE LEVEL 25 MEQ/L (21-32); CHLORIDE LEVEL 107 MEQ/L (98-107); CREATININE FOR GFR 0.83 MG/DL (0.55-1.30); GLOMERULAR FILTRATION RATE > 60.0 (>51); GLUCOSE, FASTING 91 MG/DL (70-100); POTASSIUM SERUM 4.4 MEQ/L (3.5-5.1); SODIUM LEVEL 140 MEQ/L (136-145); TOTAL PROTEIN 7.5 GM/DL (6.4-8.2)
[2018-03-19 13:15] LABS: ESTIMATED AVERAGE GLUCOSE 105 MG/DL (60-110); HEMOGLOBIN A1c 5.3 %
[2018-03-20 13:12] LABS: APPEARANCE, URINE CLEAR (CLEAR); BACTERIA, URINE AUTO NEGATIVE (NEGATIVE); BILIRUBIN, URINE AUTO NEGATIVE (NEGATIVE); BLOOD, URINE BLOOD NEGATIVE (NEGATIVE); COLOR, URINE STRAW (YELLOW); GLUCOSE, URINE (UA) AUTO NEGATIVE (NEGATIVE); KETONE, URINE AUTO NEGATIVE (NEGATIVE); LEUKOCYTE ESTERASE, URINE AUTO TRACE (NEGATIVE); NITRITE, URINE AUTO NEGATIVE (NEGATIVE); PROTEIN, URINE AUTO NEGATIVE (NEGATIVE); RBC, URINE AUTO 1 /HPF (0-3); SPECIFIC GRAVITY URINE AUTO 1.009 (1.002-1.035); SQUAMOUS EPITHELIAL CELL UR AU 0 /HPF (0-6); UROBILINOGEN, URINE AUTO 0.2 mg/dL (0.0-2.0); WBC, URINE AUTO 2 /HPF (0-3)
[2018-03-20 13:42] LABS: MALB URINE SIEMENS < 5.0 MG/L
[2018-03-20 13:49] LABS: MAU/CREAT RATIO 10.2 MCG/MG (0.0-30.0)
[2018-03-22 15:25] LABS: ALBUMIN 4.22 GM/DL (3.29-5.55); ALBUMIN % 56.3 % (55.8-66.1); ALPHA-1-GLOBULIN % 4.8 % (2.9-4.9); ALPHA-1-GLOBULINS 0.36 GM/DL (0.17-0.41); ALPHA-2-GLOBULINS 0.92 GM/DL (0.42-0.99); ALPHA-2-GLOBULINS % 12.3 % (7.1-11.8); BETA-1-GLOBULINS 0.48 GM/DL (0.28-0.60); BETA-1-GLOBULINS % 6.4 % (4.7-7.2); BETA-2-GLOBULINS 0.48 GM/DL (0.19-0.55); BETA-2-GLOBULINS % 6.4 % (3.2-6.5); GAMMA GLOBULINS 1.04 GM/DL (0.65-1.58)
[2018-03-22 15:26] LABS: GAMMA GLOBULIN % 13.8 % (11.1-18.8)
[2018-03-23 00:07] LABS: INSULIN LEVEL 18.2 uIU/mL (2.6-24.9)
== END ==
LOC: M SFHCPLAZ 09:53
DX: R73.01 Impaired fasting glucose (principal); D50.9 Iron deficiency anemia, unspecified
CPT/HCPCS: 83525

== ENCOUNTER → 2018-05-19 | Outpatient (CLI) | payer OTHER | LOC: M SLEEP 19:41 | DX: G47.33 Obstructive sleep apnea (adult) (pediatric) (principal) | CPT/HCPCS: 95810 ==

== ENCOUNTER → 2018-08-26 | Outpatient (REF) | payer OTHER ==
[~2018-08-26] MED LIST changes: +REGL10TA6 PO; +ZONI100C2 PO
[2018-08-26 12:30] LABS: BASO % 0.8 % (0.0-1.0); EOS # 0.1 10^3/uL (0.0-0.50); EOS % 1.5 % (0.0-3.0); HEMATOCRIT 44.1 % (36.0-47.0); HEMOGLOBIN 14.1 g/dl (12.0-15.5); LYMPH # 1.5 10^3/uL (1.5-4.5); LYMPH % 38.5 % (24.0-44.0); MEAN CORPUSCULAR HEMOGLOBIN 31.1 pg (27.0-33.0); MEAN CORPUSCULAR VOLUME 97.1 fl (80.0-96.0); MONO # 0.3 10^3/uL (0.0-0.8); MONO % 8.1 % (0.0-5.0); NEUTROPHILS % 50.8 % (36.0-66.0); PLATELET COUNT, AUTOMATED 267 10^3/uL (150-450); RED BLOOD COUNT 4.54 10^6/uL (4.00-5.40)
[2018-08-26 12:45] LABS: ALBUMIN 3.8 GM/DL (3.2-5.2); ALT/SGPT 40 U/L (12-78); BILIRUBIN,TOTAL 0.5 MG/DL (0.2-1.0); BLOOD UREA NITROGEN 11 MG/DL (7-18); C REACTIVE PROTEIN QUANTITATIV 0.31 MG/DL (0.00-0.30); CALCIUM LEVEL 8.5 MG/DL (8.5-10.1); CARBON DIOXIDE LEVEL 25 MEQ/L (21-32); CHLORIDE LEVEL 109 MEQ/L (98-107); CHOLESTEROL LEVEL 195 MG/DL (<200); CHOLESTEROL RISK RATIO 3.611 (<5); CPK CREATINE PHOSPHOKINASE 110 U/L (26-192); CREATININE FOR GFR 0.75 MG/DL (0.55-1.30); FREE T4 0.92 NG/DL (0.76-1.46); GLOMERULAR FILTRATION RATE > 60.0 (>51); GLUCOSE, FASTING 103 MG/DL (70-100); HDL CHOLESTEROL 54 MG/DL (>40); LDL CHOLESTEROL 109 MG/DL (<100); MAGNESIUM LEVEL 2.3 MG/DL (1.8-2.4); NON-HDL-C 141 MG/DL; POTASSIUM SERUM 4.7 MEQ/L (3.5-5.1); SODIUM LEVEL 142 MEQ/L (136-145); THYROID STIMULATING HORMONE 0.592 uIU/ML (0.358-3.740); TOTAL PROTEIN 6.8 GM/DL (6.4-8.2); TRIGLYCERIDES LEVEL 160 MG/DL (<150)
== END ==
LOC: M SFHCPLAZ 09:12
PROVIDERS: ATTEND Family Medicine
DX: I10 Essential (primary) hypertension (principal); E78.2 Mixed hyperlipidemia

== ENCOUNTER → 2018-10-19 | Outpatient (REF) | payer OTHER | LOC: M LAB REF 17:04 | PROVIDERS: ATTEND Physician Assistant | DX: R30.0 Dysuria (principal) ==

== ENCOUNTER 2018-11-02 05:45 | Day surgery (SDC) | payer OTHER ==
[~2018-11-02] VITALS: Ht 162.6 cm; Wt 75.7 kg
[~2018-11-02 05:45] MED LIST changes: +AMLO25TA PO; +ASPI81TA85 PO; +BOTO10VL IM; +CARV6.25 PO; +VENL37TA PO; +WOMETAB PO
[2018-11-02] MEDS ORDERED: LIDOCAINE 1% MDV 20ML VIAL SQ PRN (06:00)
[2018-11-02] MEDS ORDERED: ceFAZolin 1GM INJ (J0690 PER 500MG) As Ordered ONE (06:37)
[2018-11-02] MEDS ORDERED: LIDOCAINE W/EPINEPHRINE 1% 20ML VIAL As Ordered ONE (07:10)
[2018-11-02] MEDS ORDERED: BACITRACIN OINT 30GM As Ordered ONE (07:10)
[2018-11-02] MEDS ORDERED: POVIDONE-IODINE 5% OPHTH PREP SOL 30ML As Ordered ONE (07:13)
[2018-11-02] MEDS ORDERED: LIDOCAINE 2% INJ 100 MG/5 ML SDV (FOR ANES.) As Ordered ONE (07:18)
[2018-11-02] MEDS ORDERED: PROPOFOL 200 MG/20 ML VIAL As Ordered ONE ×2 (07:18→08:12)
[2018-11-02] MEDS ORDERED: fentaNYL 100 MCG/2 ML INJECTION (J3010) As Ordered ONE ×2 (07:19→08:57)
[2018-11-02] MEDS ORDERED: MIDAZOLAM INJ 2 MG/2 ML VIAL (J2250) As Ordered ONE ×2 (07:19→08:35)
[2018-11-02] MEDS ORDERED: LIDOCAINE 2% W/EPIN INJ 20ML **PRES FREE As Ordered ONE (07:44)
[2018-11-02] MEDS ORDERED: KETOROLAC 60 MG/2 ML VIAL (J1885) As Ordered ONE (08:12)
[2018-11-02] MEDS ORDERED: ONDANSETRON 4MG/2ML VIAL (J2405) As Ordered ONE (08:12)
--- NOTE | 2018-11-02 10:01 | POST-OPPD ---
Postoperative Procedure Note Date Of Procedure: Nov 02, 2018 PREOPERATIVE DIAGNOSIS: Multiple masses face, posterior neck, back. POSTOPERATIVE DIAGNOSIS: same FINDINGS: 5 masses: Forehead, left brow, posterior neck, left upper back, left lower back. PROCEDURE: Excision multiple masses face, posterior neck, back. SURGEON: Dr Holley ANESTHESIA: Local with sedation SPECIMENS: Forehead 1x1cm, left brow 3x3cm, posterior neck 1.5x1cm, left upper back 1x1cm, left lower back 3x2.5cm ESTIMATED BLOOD LOSS: 5 cc REPLACED: none DRAINS: none COMPLICATIONS: none POSTOPERATIVE CONDITION: stable AUDREY HOLLEY DO Nov 02, 2018 10:01
[2018-11-02] MEDS ORDERED: TYLETAB14 PO (10:03)
[2018-11-02] MEDS ORDERED: LR 1,000 ML IV ONE (10:30)
[2018-11-02] MEDS ORDERED: ceFAZolin SOD 1 GM in D5W MINI-BAG PLUS 50 ML IV ONE (10:30)
[2018-11-02 10:47] VITALS: BP 135/78
[2018-11-02] MEDS ORDERED: HEPARIN SOD (PORCINE) 5000 UNITS/ML VIAL As Ordered ONE (10:51)
--- NOTE | 2018-11-03 11:52 | RO ---
DATE OF PROCEDURE: 11/02/2018 PREPROCEDURE DIAGNOSIS: Multiple masses on the face, posterior neck and back. POSTPROCEDURE DIAGNOSIS: Multiple masses on the face, posterior neck and back. PROCEDURE: Excision of multiple masses face, posterior neck and back. SURGEON: Dr. Kelsi Sofia. 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 SPECIMENS SENT: Forehead, left brow, posterior neck, left upper back, left lower back. The measurement of the lesions were forehead 1 x 1 cm, left brow 3 x 3 cm, posterior neck 1.5 x 1 cm, left upper back 1 x 1 cm and left lower back 3 x 2.5 cm. ESTIMATED BLOOD LOSS: 5 mL. No replacement needed. DRAINS: None. DESCRIPTION OF PROCEDURE: This is a 53-year-old female who was seen in our office complaining of slow-growing masses throughout her body but these five that were described are pedunculated and large. The one that is on the left brow is a flat mass that is not pedunculated but it is very large in size 3 x 3 above the left brow. Patient has certain discomforts with them. She is not aware of what is causing them and she would like to have them removed. Full risks and benefits and alternatives were discussed with the patient. She is ready to proceed. We brought the patient to the operating room, placed in a prone position. She was going to be done under local with sedation, so she prepped herself in a comfortable position. She was prepped and draped in the usual sterile fashion. Sedation was given to the patient and then 2% lidocaine with epinephrine was infiltrated into the three areas on the back. The left lower back, left upper back and left posterior neck. After the lidocaine effect was taking place, we started our procedure with the left upper back. An elliptical incision horizontally oriented was done excising the whole pedunculated mass, which was 1 x 1 cm. Electrocautery was used to completely shell out the mass. It had this gelatinous feel to it on the inside but it is not a cyst. Hemostasis was obtained using electrocautery. Dog ears were eliminated. Total incision at this point is 2 cm in length and is closed in layers with interrupted #4-0 Monocryl suture. Then we turned our attention to the posterior neck. Also an elliptical incision was carried out. Electrocautery was used to shell-out the whole specimen. Hemostasis obtained and the wounds was closed in layers with interrupted #4-0 Monocryl sutures as well. Steri-Strips were applied. The length of this incision is 2 cm. Then we turned our attention to the left lower back. Elliptical incision horizontally oriented is carried out. This mass was quite large but we were able to remove it with minimal bleeding. Hemostasis obtained using electrocautery. The same type of texture on the inside of the mass. It was completely excised. The wound was approximated, closed in layers with interrupted #3-0 Vicryl sutures and the muscle layer following but subcu with #4-0 Monocryl sutures. The dog ears were excised and the incision total is 5 cm in length. Then we had the patient turn in the supine position, which she did, and required prepping and re-draping again. Then 2% lidocaine was infiltrated in the right forehead and the left eyebrow. After the lidocaine effect took place, we made an elliptical incision on the right forehead completely excising the mass, which seemed inside to be identical to the three previous masses. Using electrocautery, hemostasis was obtained and the wound was approximated with interrupted #4-0 Monocryl sutures and #5-0 Monocryl sutures and a #6-0 plain gut suture on a dermal stitch. Steri-Strips was applied. The left brow incision was designed along the middle portion of the upper left eyebrow, so about a 4 cm incision was made. Then we undermined the mass superiorly. We identified a lot of gelatinous-looking tissue, which was dissection off the subcuticular tissue. There is not an identifiable definite mass identified but there is some abnormal tissue that was growing, similar as the other tissues that were seen already growing into the skin and into the muscle, which was shaved off and sent to pathology. Excess skin was measured and resected as well. The wound was closed with interrupted #4-0 Monocryl sutures and #5-0 Monocryl sutures as well. Bacitracin ointment and a compression dressing was placed on the forehead. Patient tolerated the procedure well. She was transferred to the recovery room in stable condition.
== END 2018-11-02 10:52 | disposition home or self-care (01) ==
LOC: M SDC 05:45
PROVIDERS: ATTEND Plastic Surgery Surgery of the Hand
DX: D36.11 Benign neoplasm of peripheral nerves and autonomic nervous system of face, head, and neck (principal); D36.17 Benign neoplasm of peripheral nerves and autonomic nervous system of trunk, unspecified; I10 Essential (primary) hypertension; E78.00 Pure hypercholesterolemia, unspecified; E11.9 Type 2 diabetes mellitus without complications; F41.9 Anxiety disorder, unspecified; M54.5 Low back pain; F32.9 Major depressive disorder, single episode, unspecified; G43.909 Migraine, unspecified, not intractable, without status migrainosus; G47.30 Sleep apnea, unspecified; Z88.8 Allergy status to other drugs, medicaments and biological substances; Z91.09 Other allergy status, other than to drugs and biological substances; Z79.899 Other long term (current) drug therapy; Z79.82 Long term (current) use of aspirin; Z79.84 Long term (current) use of oral hypoglycemic drugs; Z90.710 Acquired absence of both cervix and uterus; Z87.891 Personal history of nicotine dependence; Z98.51 Tubal ligation status
CPT/HCPCS: 11402; 11406; 11422; 11442; 11444; 12031; 12044; 13101; 88305; J1885; J2250; J2405; J3010

== ENCOUNTER → 2018-12-22 | Outpatient (CLI) | payer OTHER ==
[~2018-12-22] MED LIST changes: +TYLETAB14 PO
--- NOTE | 2018-12-22 09:00 | REPMRS ---
Patient History The patient states she has not had a clinical breast exam in over a year. Patient is postmenopausal. Family history of breast cancer at age 67 in mother, breast cancer at age 50 or over in maternal grandmother, breast cancer at age 56 in sister. Benign excisional biopsy of the left breast. Took estrogen for 3 years. 3D TOMOSYNTHESIS WAS PERFORMED. The [facility] lifetime risk for breast cancer is 20.0%. Digital Woman Screen Mammo: December 22, 2018 - Exam #: [id number] Bilateral CC and MLO view(s) were taken. Technologist: Estefania Camarena, Technologist Prior study comparison: January 08, 2018, right breast digital mammo diagnostic unilateral, performed at [facility]. December 08, 2017, digital woman screen mammo performed at [facility]. FINDINGS: The breast tissue is heterogeneously dense. This may lower the sensitivity of mammography. There has been no change in the appearance of the mammogram from the prior studies. There is a moderate amount of residual fibroglandular tissue which is fairly symmetric. There is no interval development of dominant mass, areas of architectural distortion, or clustered microcalcification typical of malignancy. Assessment: BI-RADS/ACR category 1 mammogram. Negative Mammogram. Recommendation Routine screening mammogram in 1 year (for women over age 40). This mammogram was interpreted with the aid of an FDA-approved computer-aided dectection system. THE LIFETIME RISK OF BREAST CANCER IS 20.0%, THEREFORE SUPPLEMENTAL SCREENING MRI OF THE BREASTS IS RECOMMENDED IN 6 MONTHS. Electronically Signed By: Femi Deleon MD 12/22/18 [id number]
== END ==
LOC: M WHC 07:42
PROVIDERS: ATTEND Family Medicine
DX: Z12.31 Encounter for screening mammogram for malignant neoplasm of breast (principal); Z78.0 Asymptomatic menopausal state

== ENCOUNTER → 2019-01-04 | Outpatient (REF) | payer OTHER ==
[~2019-01-04] MED LIST changes: +CIPR-249 PO; +KETO10TAB PO; +ONDA4TAB6 PO; +OXYB-54 PO; -OXYB5TAB PO; +OXYB5TAB10 OR; +ZONI100C17 PO; -ZONI100C2 PO
[2019-01-04 11:33] LABS: HEMOGLOBIN A1c 5.9 %
[2019-01-04 14:18] LABS: PTH INTACT 37.8 PG/ML (18.5-88.0); TOTAL 25(OH) VITAMIN D 61.6 NG/ML (30.0-100.0)
== END ==
LOC: M SFHCPLAZ 08:30
PROVIDERS: ATTEND Physician Assistant Medical
DX: R73.01 Impaired fasting glucose (principal); E55.9 Vitamin D deficiency, unspecified; E53.8 Deficiency of other specified B group vitamins

== ENCOUNTER → 2019-01-18 | Outpatient (REF) | payer OTHER ==
[2019-01-18 16:03] LABS: BASO % 0.7 % (0.0-1.0); EOS # 0.1 10^3/uL (0.0-0.50); EOS % 1.5 % (0.0-3.0); HEMATOCRIT 41.8 % (36.0-47.0); HEMOGLOBIN 13.5 g/dl (12.0-15.5); LYMPH # 1.8 10^3/uL (1.5-4.5); LYMPH % 33.5 % (24.0-44.0); MEAN CORPUSCULAR HEMOGLOBIN 30.6 pg (27.0-33.0); MEAN CORPUSCULAR HGB CONC 32.3 g/dl (32.0-36.5); MEAN CORPUSCULAR VOLUME 94.8 fl (80.0-96.0); MONO # 0.4 10^3/uL (0.0-0.8); MONO % 7.7 % (0.0-5.0); NEUTROPHILS # 3.1 10^3/uL (1.8-7.7); NEUTROPHILS % 56.4 % (36.0-66.0); PLATELET COUNT, AUTOMATED 342 10^3/uL (150-450); RED BLOOD COUNT 4.41 10^6/uL (4.00-5.40); WHITE BLOOD COUNT 5.4 10^3/uL (4.0-10.0)
[2019-01-18 16:08] LABS: COLLAGEN EPINEPHRINE > 300 SECONDS (74-162)
[2019-01-18 16:11] LABS: COLLAGEN ADP 94 SECONDS (56-103)
[2019-01-18 16:13] LABS: INR 1.05; PROTHROMBIN TIME 13.4 SECONDS (11.8-14.0)
[2019-01-18 16:14] LABS: PARTIAL THROMBOPLASTIN TIME 29.9 SECONDS (25.0-38.4)
[2019-01-18 16:42] LABS: ERYTHROCYTE SEDIMENTATION RATE 10 mm/hr (0-30)
== END ==
LOC: M SFHCPLAZ 13:48
PROVIDERS: ATTEND Physician Assistant Medical
DX: R58 Hemorrhage, not elsewhere classified (principal)

== ENCOUNTER 2019-03-29 21:43 | Emergency (ER) | payer OTHER ==
[~2019-03-29] VITALS: Ht 162.6 cm; Wt 74.1 kg
[~2019-03-29 21:43] MED LIST changes: -CIPR-249 PO; -KETO10TAB PO; -ONDA4TAB6 PO; -OXYB5TAB10 OR
[2019-03-29] MEDS ORDERED: OXYB5TAB10 OR (22:12)
[2019-03-29 22:31] LABS: BASO % 0.6 % (0.0-1.0); EOS # 0.1 10^3/uL (0.0-0.5); EOS % 1.1 % (0.0-3.0); HEMATOCRIT 48.6 % (36.0-47.0); HEMOGLOBIN 16.4 g/dl (12.0-15.5); LYMPH # 1.8 10^3/uL (1.5-5.0); LYMPH % 24.4 % (24.0-44.0); MEAN CORPUSCULAR HEMOGLOBIN 31.8 pg (27.0-33.0); MEAN CORPUSCULAR HGB CONC 33.7 g/dl (32.0-36.5); MEAN CORPUSCULAR VOLUME 94.4 fl (80.0-96.0); MONO # 0.5 10^3/uL (0.0-0.8); MONO % 6.7 % (0.0-5.0); NEUTROPHILS # 4.9 10^3/uL (1.5-8.5); NEUTROPHILS % 66.9 % (36.0-66.0); PLATELET COUNT, AUTOMATED 328 10^3/uL (150-450); RED BLOOD COUNT 5.15 10^6/uL (4.00-5.40); WHITE BLOOD COUNT 7.3 10^3/uL (4.0-10.0)
[2019-03-29] MEDS ORDERED: ONDANSETRON 4MG/2ML VIAL (J2405) IV ONE (22:45)
[2019-03-29] MEDS ORDERED: NS 1,000 ML IV ONE (22:45)
[2019-03-29 23:04] LABS: ALBUMIN 4.2 GM/DL (3.2-5.2); ALT/SGPT 21 U/L (12-78); BILIRUBIN,DIRECT 0.1 MG/DL (0.0-0.2); BILIRUBIN,TOTAL 0.5 MG/DL (0.2-1.0); BLOOD UREA NITROGEN 11 MG/DL (7-18); CALCIUM LEVEL 9.6 MG/DL (8.5-10.1); CARBON DIOXIDE LEVEL 25 MEQ/L (21-32); CHLORIDE LEVEL 108 MEQ/L (98-107); GLOMERULAR FILTRATION RATE > 60.0 (>51); GLUCOSE, FASTING 95 MG/DL (70-100); LIPASE 127 U/L (73-393); POTASSIUM SERUM 3.8 MEQ/L (3.5-5.1); SODIUM LEVEL 142 MEQ/L (136-145); TOTAL PROTEIN 7.8 GM/DL (6.4-8.2)
[2019-03-30] MEDS ORDERED: KETOROLAC 30 MG/ML VIAL (J1885) IV ONE
[2019-03-30] MEDS ORDERED: KETO10TAB PO (00:08)
[2019-03-30] MEDS ORDERED: CIPR-249 PO (00:08)
[2019-03-30] MEDS ORDERED: ONDA4TAB6 PO (00:08)
[2019-03-30 00:10] VITALS: BP 120/56
[2019-03-30] MEDS ORDERED: CIPROFLOXACIN 500 MG TAB PO ONE (00:15)
== END 2019-03-30 00:25 | disposition home or self-care (01) ==
LOC: M ED 21:43
DX: A04.9 Bacterial intestinal infection, unspecified (principal); N39.0 Urinary tract infection, site not specified; I10 Essential (primary) hypertension; E78.5 Hyperlipidemia, unspecified; K21.9 Gastro-esophageal reflux disease without esophagitis; Z79.84 Long term (current) use of oral hypoglycemic drugs; Z88.8 Allergy status to other drugs, medicaments and biological substances; Z91.048 Other nonmedicinal substance allergy status
CPT/HCPCS: 36415; 80048; 80076; 81001; 83690; 85025; 87086; 96361; 96374; 96375; 99284; J1885; J2405

== ENCOUNTER → 2019-04-05 | Outpatient (REF) | payer OTHER ==
[~2019-04-05] MED LIST changes: +CIPR-249 PO; +KETO10TAB PO; +ONDA4TAB6 PO; +OXYB5TAB10 OR
[2019-04-05 14:12] LABS: ALBUMIN 3.8 GM/DL (3.2-5.2); ALT/SGPT 19 U/L (12-78); BILIRUBIN,TOTAL 0.5 MG/DL (0.2-1.0); BLOOD UREA NITROGEN 12 MG/DL (7-18); CALCIUM LEVEL 9.1 MG/DL (8.5-10.1); CARBON DIOXIDE LEVEL 28 MEQ/L (21-32); CHLORIDE LEVEL 106 MEQ/L (98-107); CREATININE FOR GFR 0.91 MG/DL (0.55-1.30); GLOMERULAR FILTRATION RATE > 60.0 (>51); GLUCOSE, FASTING 90 MG/DL (70-100); POTASSIUM SERUM 4.2 MEQ/L (3.5-5.1); SODIUM LEVEL 141 MEQ/L (136-145); TOTAL PROTEIN 7.3 GM/DL (6.4-8.2)
[2019-04-05 14:13] LABS: BASO % 0.8 % (0.0-1.0); EOS # 0.1 10^3/uL (0.0-0.5); HEMATOCRIT 44.7 % (36.0-47.0); HEMOGLOBIN 14.6 g/dl (12.0-15.5); LYMPH # 1.7 10^3/uL (1.5-5.0); LYMPH % 33.9 % (24.0-44.0); MEAN CORPUSCULAR HEMOGLOBIN 31.3 pg (27.0-33.0); MEAN CORPUSCULAR HGB CONC 32.7 g/dl (32.0-36.5); MEAN CORPUSCULAR VOLUME 95.9 fl (80.0-96.0); MONO # 0.4 10^3/uL (0.0-0.8); MONO % 7.5 % (0.0-5.0); NEUTROPHILS # 2.8 10^3/uL (1.5-8.5); NEUTROPHILS % 56.6 % (36.0-66.0); PLATELET COUNT, AUTOMATED 299 10^3/uL (150-450); RED BLOOD COUNT 4.66 10^6/uL (4.00-5.40)
== END ==
LOC: M SFHCPLAZ 11:15
PROVIDERS: ATTEND Physician Assistant Medical
DX: K52.9 Noninfective gastroenteritis and colitis, unspecified (principal); N30.90 Cystitis, unspecified without hematuria

== ENCOUNTER → 2019-04-25 | Outpatient (REF) | payer OTHER ==
[~2019-04-25] MED LIST changes: -OXYB-54 PO; +OXYB5TAB2 PO; -ZONI100C17 PO; +ZONI100C2 PO
[2019-04-25 15:58] LABS: BASO % 0.8 % (0.0-1.0); EOS # 0.1 10^3/uL (0.0-0.5); EOS % 1.4 % (0.0-3.0); HEMATOCRIT 40.6 % (36.0-47.0); HEMOGLOBIN 13.5 g/dl (12.0-15.5); LYMPH # 1.7 10^3/uL (1.5-5.0); LYMPH % 32.5 % (24.0-44.0); MEAN CORPUSCULAR HEMOGLOBIN 31.6 pg (27.0-33.0); MEAN CORPUSCULAR HGB CONC 33.3 g/dl (32.0-36.5); MEAN CORPUSCULAR VOLUME 95.1 fl (80.0-96.0); MONO # 0.4 10^3/uL (0.0-0.8); MONO % 7.2 % (0.0-5.0); NEUTROPHILS % 57.7 % (36.0-66.0); PLATELET COUNT, AUTOMATED 299 10^3/uL (150-450); RED BLOOD COUNT 4.27 10^6/uL (4.00-5.40); WHITE BLOOD COUNT 5.2 10^3/uL (4.0-10.0)
[2019-04-25 16:03] LABS: ALBUMIN 3.7 GM/DL (3.2-5.2); ALT/SGPT 20 U/L (12-78); BILIRUBIN,TOTAL 0.6 MG/DL (0.2-1.0); BLOOD UREA NITROGEN 9 MG/DL (7-18); CALCIUM LEVEL 9.1 MG/DL (8.5-10.1); CARBON DIOXIDE LEVEL 27 MEQ/L (21-32); CHLORIDE LEVEL 108 MEQ/L (98-107); CREATININE FOR GFR 0.76 MG/DL (0.55-1.30); GLOMERULAR FILTRATION RATE > 60.0 (>51); GLUCOSE, FASTING 98 MG/DL (70-100); POTASSIUM SERUM 4.3 MEQ/L (3.5-5.1); SODIUM LEVEL 141 MEQ/L (136-145)
== END ==
LOC: M SFHCPLAZ 13:43
PROVIDERS: ATTEND Physician Assistant Medical
DX: R11.2 Nausea with vomiting, unspecified (principal)

== ENCOUNTER → 2019-05-02 | Outpatient (REF) | payer OTHER | LOC: M SFHCPLAZ 16:58 | PROVIDERS: ATTEND Physician Assistant Medical | DX: R11.2 Nausea with vomiting, unspecified (principal) ==

== ENCOUNTER 2019-07-29 14:45 | Inpatient (IN) | payer MEDICARE, OTHER ==
[~2019-07-29] VITALS: Ht 162.6 cm; Wt 74.5 kg
[~2019-07-29 14:45] MED LIST changes: +OXYB-54 PO; -OXYB5TAB10 OR; +OXYB5TAB10 PO; -OXYB5TAB2 PO; +ZONI100C17 PO; -ZONI100C2 PO
[2019-07-29 16:19] LABS: BASO % 0.4 % (0.0-1.0); EOS # 0.1 10^3/uL (0.0-0.5); EOS % 0.7 % (0.0-3.0); HEMATOCRIT 49.5 % (36.0-47.0); LYMPH # 1.7 10^3/uL (1.5-5.0); LYMPH % 22.8 % (24.0-44.0); MEAN CORPUSCULAR HEMOGLOBIN 30.7 pg (27.0-33.0); MEAN CORPUSCULAR HGB CONC 32.3 g/dl (32.0-36.5); MONO # 0.6 10^3/uL (0.0-0.8); MONO % 8.5 % (0.0-5.0); NEUTROPHILS # 5.1 10^3/uL (1.5-8.5); NEUTROPHILS % 67.3 % (36.0-66.0); PLATELET COUNT, AUTOMATED 302 10^3/uL (150-450); RED BLOOD COUNT 5.21 10^6/uL (4.00-5.40); WHITE BLOOD COUNT 7.5 10^3/uL (4.0-10.0)
[2019-07-29 16:28] LABS: AMORPHOUS SEDIMENT SMALL (NEGATIVE); APPEARANCE, URINE CLOUDY (CLEAR); BACTERIA, URINE AUTO NEGATIVE (NEGATIVE); BILIRUBIN, URINE AUTO NEGATIVE (NEGATIVE); BLOOD, URINE BLOOD NEGATIVE (NEGATIVE); COLOR, URINE YELLOW (YELLOW); GLUCOSE, URINE (UA) AUTO NEGATIVE (NEGATIVE); KETONE, URINE AUTO 2+ mg/dL (NEGATIVE); LEUKOCYTE ESTERASE, URINE AUTO NEGATIVE (NEGATIVE); MUCUS, URINE SMALL (NEGATIVE); NITRITE, URINE AUTO NEGATIVE (NEGATIVE); PROTEIN, URINE AUTO NEGATIVE (NEGATIVE); RBC, URINE AUTO 3 /HPF (0-3); SPECIFIC GRAVITY URINE AUTO 1.026 (1.002-1.035); SQUAMOUS EPITHELIAL CELL UR AU 0 /HPF (0-6); WBC, URINE AUTO 3 /HPF (0-3)
[2019-07-29 16:46] LABS: ALBUMIN 4.3 GM/DL (3.2-5.2); BILIRUBIN,DIRECT 0.1 MG/DL (0.0-0.2); BILIRUBIN,TOTAL 0.7 MG/DL (0.2-1.0)
[2019-07-29] MEDS ORDERED: ISOVUE-370 76% 100ML VIAL (Q9967) As Ordered ONE (16:49)
[2019-07-29] MEDS ORDERED: ONDANSETRON 4MG/2ML VIAL (J2405) IV ONE ×2 (17:30→18:45)
[2019-07-29] MEDS ORDERED: NS 1,000 ML IV ONE (17:30)
[2019-07-29] MEDS ORDERED: MORPHINE 2 MG/ML 1ML VIAL (J2270) IV ONE (17:30)
--- NOTE | 2019-07-29 17:55 | REPVR ---
PROCEDURE INFORMATION: Exam: CT Abdomen And Pelvis With Contrast Exam date and time: 07/29/2019 5:06 PM Age: 54 years old Clinical indication: Abdominal pain; Additional info: Bilat lq abd pain, n/v x 2 days TECHNIQUE: Imaging protocol: Computed tomography of the abdomen and pelvis with intravenous contrast. Radiation optimization: All CT scans at this facility use at least one of these dose optimization techniques: automated exposure control; mA and/or kV adjustment per patient size (includes targeted exams where dose is matched to clinical indication); or iterative reconstruction. Contrast material: ISOVUE 370; Contrast volume: 100 ml; Contrast route: IV; COMPARISON: No relevant prior studies available. FINDINGS: Lungs: Minimal dependent atelectasis within the right lung base. Liver: Diffuse fatty infiltration of the liver. No focal hepatic lesion or intrahepatic duct dilatation. Gallbladder and bile ducts: Unremarkable. No calcified stones. No ductal dilation. Pancreas: Unremarkable. No ductal dilation. Spleen: Unremarkable. No splenomegaly. Adrenals: Normal. No mass. Kidneys and ureters: Unremarkable. No stones. No hydronephrosis. Stomach and bowel: There are 2 hypervascular jejunal mucosal nodules measuring 9 mm and 7 mm seen on axial images numeral 64 and 70 and coronal reformatted images numeral 32 through 34. These hypervascular nodules are suspicious for tiny carcinoid tumors. Gastrointestinal stromal tumors are less likely. Gastroenterology consultation/follow-up is recommended. This could be further evaluated with MRI and/or indium 111 octreotide radionuclide scintigraphy. No mesenteric mass is identified. The ileum, stomach and colon are unremarkable. Appendix: No evidence of appendicitis. Intraperitoneal space: No free intraperitoneal fluid or free air is identified. Vasculature: The suprarenal IVC is dilated measuring approximately 3.3 cm transverse by 3.2 cm AP. This may indicate high right atrial pressures. Correlate clinically. Lymph nodes: Unremarkable. No enlarged lymph nodes. Bladder: Unremarkable as visualized. Reproductive: Unremarkable as visualized. Bones/joints: No acute fracture. Soft tissues: Unremarkable. IMPRESSION: 1. Minimal atelectasis within the right lung base. 2. Two hypervascular jejunal mucosal nodules measuring 9 mm and 7 mm suspicious for carcinoid tumors. GIST is less likely. Gastroenterology consultation/follow-up and additional imaging (as clinically indicated) is recommended. 3. The suprarenal IVC is dilated measuring approximately 3.3 cm transverse by 3.2 cm AP. This may indicate high right atrial pressures. Correlate clinically. 4. Diffuse fatty infiltration of the liver. Electronically signed by: Isma Hardwick On 07/29/2019 17:55:20 PM
[2019-07-29] MEDS ORDERED: ONDANSETRON 4MG/2ML VIAL (J2405) IV PRN (18:30)
[2019-07-29] MEDS ORDERED: MORPHINE 4 MG/ML 1ML VIAL/SYRINGE (J2270) IV ONE (18:30)
[2019-07-29] MEDS ORDERED: MORPHINE 2 MG/ML 1ML VIAL (J2270) IV PRN (18:30)
[2019-07-29] MEDS ORDERED: NS 1,000 ML IV SCH (18:30)
[2019-07-29] MEDS ORDERED: METOCLOPRAMIDE INJ 10MG/2ML VIAL (J2765) IV ONE (18:30)
[2019-07-29 18:32] LABS: CHOLESTEROL RISK RATIO 3.384 (<5)
[2019-07-29] MEDS ORDERED: VITA50005 PO (19:08)
[2019-07-29] MEDS ORDERED: COLA100C5 PO (19:08)
[2019-07-29] MEDS ORDERED: SENO8.6T5 PO (19:08)
[2019-07-29] MEDS ORDERED: METH1TAB40 PO (19:08)
[2019-07-29] MEDS ORDERED: BOTO200I INJ (19:08)
[2019-07-29] MEDS ORDERED: VITA100054 PO (19:09)
--- NOTE | 2019-07-29 20:37 | ECGEPIP ---
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
[2019-07-29] MEDS: ZONISAMIDE 100 MG CAP (ZONEGRAN) PO SCH (21:00)
[2019-07-29] MEDS: FAMOTIDINE 20 MG TAB PO SCH (21:00)
[2019-07-29] MEDS: CARVedilol 6.25 MG TAB PO SCH (21:00)
[2019-07-29] MEDS: PRIMIDONE 50 MG TAB PO SCH (21:00)
[2019-07-29] MEDS: VENLAFAXINE 37.5 MG TAB PO SCH (21:00)
[2019-07-29] MEDS ORDERED: DEXTROSE 50% 50 ML SYRINGE IV PRN (21:30)
[2019-07-29] MEDS ORDERED: GLUCOSE 4 GM CHEW TABLET PO PRN (21:30)
[2019-07-29] MEDS ORDERED: GLUCAGON FOR INJ 1 MG VIAL (J1610) SC PRN (21:30)
[2019-07-29] MEDS ORDERED: PROMETHAZINE INJ 25 MG/ML VIAL (J2550) IV ONE (22:45)
[2019-07-29] MEDS: KETOROLAC 30 MG/ML VIAL (J1885) IV PRN (22:47)
--- NOTE | 2019-07-29 23:32 | HPEPDOC ---
General Date of Admission Jul 29, 2019 at 21:16 Date of Service: Jul 29, 2019 Primary Care Physician: Sulaiman Sharpe M.D. Attending Physician: DION MOJICA MD Chief Complaint The patient is a 54-year-old female admitted with a reason for visit of Abnormal Finding On Ct Scan, Pancreatitis. Source: Patient Exam Limitations: No limitations Timing/Duration: Day(s) Severity: Moderate Associated Symptoms: Nausea, Vomiting, Other (abdominal pain and diarrhea) History of Present Illness 54-year-old female with past medical history of DM2, hypertension, neurofibromatosis type I, dyslipidemia, GERD, migraine headaches who presented to the ED with a few days history of N/V/D and associated non radiation upper abdominal pain for 2 days with poor PO and last solids 2 days ago, without an noted fevers but endorsing some cold sweats. In the ED she was hemodynamically stable and afebrile but quite nauseous and had some emesis. Workup was notable for lipase of [address] A/P that showed 2 hypervascular jejunal nodules suspicious for carcinoid as well as dilated suprarenal IVC and a diffuse fatty liver, with a normal CBC with no leukocytosis, BMP, LFTs and bland UA. GI was consulted by the ED and recommended admission to medicine for pancreatitis with plan to evaluate the patient tomorrow for likely EGD to investigate the jejunal nodules. Home Medications Scheduled Amlodipine Besylate (Amlodipine Besylate) 2.5 Mg Tablet, 2.5 MG PO DAILY, (Reported) Atorvastatin Calcium (Atorvastatin Calcium) 20 Mg Tab, 20 MG PO DAILY, (Reported) Calcium Carbonate/Vitamin D3 (Calcium 500-Vit D3 200 Caplet) 1 Tab Tab, 1 TAB PO DAILY, (Reported) Carvedilol (Carvedilol) 6.25 Mg Tablet, 6.25 MG PO BID, (Reported) Cholecalciferol (Vitamin D3) (Vitamin D3) 1,000 Unit Capsule, 2,000 UNIT PO DAILY, (Reported) Cyanocobalamin (Cyanocobalamin Injection) 1,000 Mcg/1 Ml Inj, 1,000 MCG IM MTHLY, (Reported) 17TH OF EACH MONTH Docusate Sodium (Colace) 100 Mg Capsule, 100 MG PO DAILY, (Reported) Ergocalciferol (Vitamin D2) (Vitamin D2) 50,000 Units Cap, 50,000 UNITS PO Q2WK, (Reported) EVERY OTHER THURSDAY Famotidine (Famotidine) 20 Mg Tab, 20 MG PO QHS, (Reported) Metformin HCl (Metformin ER Gastric) 500 Mg Tab, 500 MG PO QPM, (Reported) WITH DINNER Multivit with Calcium,Iron,Min (Women's Daily Formula) 1 Each Tablet, 1 TAB PO DAILY, (Reported) Onabotulinumtoxina (Botox) 200 Unit Vial, 200 UNIT INJ Q3M, (Reported) LAST DOSE IN April,07/29/19 Oxybutynin Chloride (Oxybutynin Chloride) 5 Mg Tablet, 5 MG PO DAILY, (Reported) Primidone (Primidone) 50 Mg Tab, 50 MG PO BID, (Reported) Sennosides (Senokot) 8.6 Mg Tablet, 1 TAB PO DAILY, (Reported) Venlafaxine HCl (Venlafaxine HCl) 37.5 Mg Tablet, 37.5 MG PO QHS, (Reported) Zonisamide (Zonisamide) 100 Mg Cap, 100 MG PO BID, (Reported) Scheduled PRN Methocarbamol (Methocarbamol) 500 Mg Tablet, 500 MG PO for MUSCLE SPASMS, (Reported) Allergies Coded Allergies: Dust (Unverified Allergy, Unknown, 06/13/08) ENVIROMENTAL (Verified Allergy, Unknown, 10/19/18) metoclopramide (Verified Allergy, Unknown, "WHITE SPOTS ON BRAIN", 07/29/19) bupropion (Verified Adverse Reaction, Intermediate, blurred vision, 10/28/18) citalopram (Verified Adverse Reaction, Intermediate, weight gain, 10/28/18) aspirin (Verified Adverse Reaction, Unknown, BRUISING, 07/29/19) dextran sulfate (Verified Adverse Reaction, Unknown, black outs, 10/28/18) Past Medical History Medical History DM2, hypertension, neurofibromatosis type I, dyslipidemia, GERD, migraine headaches, urge incontinence Surgical History Appendectomy, tubal ligation, hysterectomy Family History CAD, HTN, COPD, carcinoma Social History * Smoker: former Smoker Alcohol: Denies Drugs: denies Recent Travel/Sick Contacts: Denies: Recent travel, Recent sick contacts Lives at home with her . A-FIB/CHADSVASC A-FIB History Current/History of A-Fib/PAF?: No Current PO Anticoag Therapy: No Age/Risk Factor Scoring CHADSVASC: CHADSVASC Response (Comments) Value Age Risk Factor Age < 65 years old 0 Gender Risk Factor Female 1 Hx of CHF No 0 Hx of HTN Yes 1 Hx of Stroke/TIA/or VTE No 0 Hx of Diabetes No 0 Hx of Vascular Disease No 0 Total 2 Treatment Treatment ordered: NONE Reason Anticoagulant not given: Not indicated/[id number] Review of Systems Constitutional: Reports: Chills; Denies: Fever, Night Sweats Eyes: Denies: Pain, Vision change ENT: Denies: Head Aches, Ear Pain, Dysphagia Skin: Denies: Rash, Lesions, Breakdown Pulmonary: Denies: Dyspnea, Cough Cardiovascular: Denies: Chest Pain, Palpitations, Orthopnea, Paroxysmal Noc. Dyspnea, Lt Headedness Gastrointestinal: Reports: Nausea, Vomiting, Abdominal Pain, Diarrhea; Denies: Constipation, Melena, Hematochezia Genitourinary: Denies: Dysuria, Frequency, Incontinence, Retention Hematologic: Denies: Bruising, Bleeding Excessively Endocrine: Denies: Polydipsia, Polyphagia, Polyuria, Heat Intolerance, Cold Intolerance, Other Endocrine Sx Musculoskeletal: Reports: Back Pain (chronic); Denies: Neck Pain, Shoulder Pain, Arm Pain, Hand Pain, Leg Pain, Foot Pain, Joint Pain, Muscle Pain, Spasms, Other Symptoms Neurological: Denies: Weakness, Numbness, Change in speech, Confusion Psych: Reports: Mood Normal; Denies: Depression, Memory Issues Physical Examination General Exam: Positive: Alert, No Acute Distress Eye Exam: Positive: PERRLA, Conjunctiva & lids normal, EOMI; Negative: Sclera icteric ENT Exam: Positive: Atraumatic, Mucous membr. moist/pink, Pharynx Normal Neck Exam: Positive: Supple; Negative: JVD, thyromegaly Chest Exam: Positive: Clear to auscultation, Normal air movement Heart Exam: Positive: Rate Normal, Regular Rhythm, Normal S1, Normal S2; Negative: Murmurs, Rubs Telemetry: Positive: No significant arrhythmia Abdomen Exam: Positive: Normal bowel sounds, Soft; Negative: Tenderness (was after receiving morphine in the ED), Hepatospenomegaly Extremity Exam: Positive: Normal pulses; Negative: Clubbing, Cyanosis, Edema Skin Exam: Positive: Nl turgor and temperature; Negative: Breakdown, Lesion Neuro Exam: Positive: Normal Gait, Normal Speech, Cranial Nerves 3-12 NL, Ref lexes 2+ Psych Exam: Positive: Mental status NL, Mood NL, Oriented x 3 Vital Signs Vital Signs Date Time Temp Pulse Resp B/P (MAP) Pulse Ox O2 Delivery O2 Flow Rate FiO2 07/29/19 19:19 17 07/29/19 18:15 98.3 88 143/80 (101) 96 Room Air Laboratory Data Labs 24H Laboratory Tests 2 07/29/19 16:05: Immature Granulocyte % (Auto) 0.3, Neutrophils (%) (Auto) 67.3H, Lymphocytes (%) (Auto) 22.8L, Monocytes (%) (Auto) 8.5H, Eosinophils (%) (Auto) 0.7, Basophils (%) (Auto) 0.4, Neutrophils # (Auto) 5.1, Lymphocytes # (Auto) 1.7, Monocytes # (Auto) 0.6, Eosinophils # (Auto) 0.1, Basophils # (Auto) 0.0, Nucleated Red Blood Cells % (auto) 0.0, Total Bilirubin 0.7, Direct Bilirubin 0.1, Aspartate Amino Transf (AST/SGOT) 19, Alanine Aminotransferase (ALT/SGPT) 23, Alkaline Phosphatase 106, Total Protein 8.0, Albumin 4.3, Albumin/Globulin Ratio 1.16, Triglycerides Level 200H, Total Cholesterol 220H, LDL Cholesterol 115H, Non-HDL Cholesterol (LDL + VLDL) 155, Total HDL Cholesterol 65, Cholesterol/HDL Ratio 3.384, Lipase 1976H 07/29/19 16:12: POC Glucose (Misc Panel) 96, POC Sodium (Misc Panel) 140, POC Potassium (Misc Panel) 3.9, POC Chloride (Misc Panel) 102, POC Total CO2 (Misc Panel) 27.0, POC Blood Urea Nitrogen (Misc Panel 15, POC Ionized Calcium (Misc Panel) 4.7, POC Creatinine (Misc Panel) 0.8, POC Hematocrit (Misc Panel) 48.0 07/29/19 16:13: Urine Color YELLOW, Urine Appearance CLOUDYH, Urine pH 7.0, Urine Specific [place] 1.026, Urine Protein NEGATIVE, Urine Glucose (Auto)(UA) NEGATIVE, Urine Ketones (Auto) 2+H, Urine Blood NEGATIVE, Urine Nitrite NEGATIVE, Urine Bilirubin NEGATIVE, Urine Urobilinogen 2.0H, Urine Leukocyte Esterase (Auto) NEGATIVE, Urine WBC (Auto) 3, Urine RBC (Auto) 3, Urine Hyaline Casts (Auto) 0, Urine Bacteria (Auto) NEGATIVE, Urine Squamous Epithelial Cells 0, Urine Amorphous Sediment (Auto) SMALLH, Urine Mucus (Auto) SMALL, Urine Sperm (Auto) CBC/BMP Laboratory Tests 07/29/19 16:05 Assessment/Plan 54 yo woman with DM2, hypertension, neurofibromatosis type I, dyslipidemia, GERD, migraine headaches, urge incontinence who presented with a few days of worsening N/V and poor PO and found to have pancreatitis on studies with noted hypervascular jejunal nodules on imaging c/f carcinoid admitted for work up and supportive treatment. Pancreatitis: Elevated lipase, nausea, emesis, poor PO, abdominal pain. -s/p 2L in the ED, continue fluids at 250cc/hr -NPO at this time -Q6H PRN zofran, will add Reglan to stagger the antiemetics given severe nausea at this time -daily BMP and replete lytes -Pain treatment toradol 30Q6 PRN. She actually has no pain at this time, will monitor. Nausea, emesis, and recent diarrhea (diarrhea has resolved) with newly noted hypervascular jejunal nodules c/f carcinoid -Pending GI consult, order placed, ED discussed with Dr. Martinez, to call in the morning -Patient is NPO HTN: -continue home meds GERD: -continue home pepcid urge incontinence: -continue home oxybutynin -continue home primodine and effxor DVT ppx: lovenox Dispo: pending clinical improvement GI evaluation. Plan / VTE VTE Prophylaxis Ordered?: Yes DION MOJICA MD Jul 29, 2019 23:32
[2019-07-30] VITALS: BP 134/66
[2019-07-30] MEDS: NS 1,000 ML IV SCH ×7 (00:06→23:29)
[2019-07-30] MEDS: HumaLOG INSULIN (NovoLOG) PER UNIT SC SCH ×5 (06:00→20:23)
[2019-07-30] MEDS: ACETAMINOPHEN TAB 650MG DOSE (2X325MG) PO PRN (06:29)
[2019-07-30 06:42] VITALS: BP 133/62
[2019-07-30] MEDS ORDERED: SENOKOT S TAB PO PRN (09:00)
[2019-07-30] MEDS ORDERED: SENOKOT S TAB PO SCH (09:00)
[2019-07-30] MEDS ORDERED: FLUBLOK(EGG FREE)(QUAD)INFLUENZA VACC 0.5ML SYRINGE (90682)18YRS&OLDER IM ONE (09:00)
[2019-07-30 09:33] LABS: HEMATOCRIT 41.1 % (36.0-47.0); MEAN CORPUSCULAR HEMOGLOBIN 31.5 pg (27.0-33.0); MEAN CORPUSCULAR HGB CONC 32.6 g/dl (32.0-36.5); MEAN CORPUSCULAR VOLUME 96.5 fl (80.0-96.0); PLATELET COUNT, AUTOMATED 253 10^3/uL (150-450); RED BLOOD COUNT 4.26 10^6/uL (4.00-5.40); WHITE BLOOD COUNT 5.9 10^3/uL (4.0-10.0)
[2019-07-30 09:37] LABS: HEMOGLOBIN 13.4 g/dl (12.0-15.5)
[2019-07-30] MEDS: ATORVASTATIN 20 MG TAB PO SCH (10:02)
[2019-07-30] MEDS: CALCIUM/VITAMIN D 500 MG TAB PO SCH (10:02)
[2019-07-30] MEDS: MULTIVITAMINS/MINERALS THERAP 1 TAB PO SCH (10:03)
[2019-07-30] MEDS: VITAMIN D 1,000 INTERNATIONAL UNITS TABLET PO SCH (10:03)
[2019-07-30] MEDS: DOCUSATE SODIUM 100 MG CAP PO SCH (10:03)
[2019-07-30] MEDS: CARVedilol 6.25 MG TAB PO SCH ×2 (10:04→20:29)
[2019-07-30] MEDS: oxyBUTYnin 5 MG TAB PO SCH (10:04)
[2019-07-30] MEDS: PRIMIDONE 50 MG TAB PO SCH ×2 (10:04→20:29)
[2019-07-30] MEDS: ZONISAMIDE 100 MG CAP (ZONEGRAN) PO SCH ×2 (10:04→20:29)
[2019-07-30 10:06] LABS: ALBUMIN 3.3 GM/DL (3.2-5.2); ALT/SGPT 16 U/L (12-78); BILIRUBIN,TOTAL 0.5 MG/DL (0.2-1.0); BLOOD UREA NITROGEN 11 MG/DL (7-18); CALCIUM LEVEL 7.7 MG/DL (8.5-10.1); CARBON DIOXIDE LEVEL 25 MEQ/L (21-32); CHLORIDE LEVEL 113 MEQ/L (98-107); CREATININE FOR GFR 0.75 MG/DL (0.55-1.30); GLOMERULAR FILTRATION RATE > 60.0 (>51); GLUCOSE, FASTING 85 MG/DL (70-100); POTASSIUM SERUM 3.9 MEQ/L (3.5-5.1); SODIUM LEVEL 145 MEQ/L (136-145)
[2019-07-30] MEDS: ONDANSETRON 4MG/2ML VIAL (J2405) IV PRN ×2 (10:06→22:36)
[2019-07-30] MEDS: ENOXAPARIN 40 MG/0.4 ML SYRINGE (J1650) SC SCH (10:08)
[2019-07-30 11:58] LABS: LIPASE 143 U/L (73-393)
[2019-07-30] MEDS: KETOROLAC 30 MG/ML VIAL (J1885) IV PRN ×2 (12:40→22:48)
[2019-07-30 14:00] VITALS: BP 120/63
--- NOTE | 2019-07-30 18:50 | IPN ---
DATE: 07/30/2019 SUBJECTIVE: The patient continues to have some nausea and epigastric abdominal discomfort. Has no sense that she would feel like eating at this time. No vomiting. No diarrhea. No fevers or chills. No other aches or pains. No pain with breathing. No cough. OBJECTIVE: VITAL SIGNS: Blood pressure 138/72, pulse 76, respiratory rate 16, unlabored and no accessory muscle use, oxygen saturation 98% on room air. EXAMINATION: She is alert, pleasant, cooperative. LUNGS: Clear to auscultation. HEART: Regular rhythm without discernible murmur. No point of maximal impulse (PMI) displacement. ABDOMEN: Bowel sounds are relatively hypoactive. There is tenderness in the epigastrium to light and moderate palpation. There is no pelvic shake tenderness. No masses palpable. IMAGING STUDIES: CT scan showed no pancreatic abnormality, gallbladder and ducts were unremarkable. No dilation. No sludge identified. No stones. No hydronephrosis. In the small bowel, two upper vascular jejunal mucosal nodules were identified 9 and 7 mm, identified as suspicious for carcinoid by radiology. Gastrointestinal stromal tumors are less likely. She does have a history of neurofibromatosis. Other imaging studies might be helpful in differentiating these. The patient reports an episode of what was called gastroenteritis in March 2019, but at that time, her lipase was normal. LABORATORY DATA: Other laboratory findings include a white count that is normal at 5900. She was 7500 yesterday. Lipase yesterday was 1976. The followup lipase was not ordered and result is pending at this time. The patient had several days of nausea and vomiting and inanition before coming to the hospital and urine was positive for ketones 2+ which is not an urobilinogen which is not surprising given her fasting state at the time. She is currently receiving IV fluids in the form of normal saline at 250 an hour. She has continued her usual medications including carvedilol, primidone, zonisamide. She has declined to take her usual venlafaxine, famotidine. Ondansetron was given this morning IV for nausea and she is getting ordered ketorolac every six hours 30 mg for abdominal pain. ASSESSMENT: Pancreatitis, continued symptoms, history of neurofibromatosis, abnormal CT scan with two lesions suspicious for carcinoid. Chronic problems include hypertension, migraine headaches, gastroesophageal reflux disease (GERD), neurofibromatosis type 1, dyslipidemia. PLAN: We will continue IV hydration at this point with blood pressures looking adequate. We probably do not need to continue IV fluids at the current rate. Her urinary output has been satisfactory. We will check her lactic acid to confirm adequate tissue perfusion but I think we can reduce her IV fluids at this point. Dr. Martinez has been consulted regarding the pancreatitis and the enhancing lesions noted on CT scan in her jejunum.
[2019-07-30 20:00] VITALS: BP 112/64
[2019-07-30] MEDS: FAMOTIDINE 20 MG TAB PO SCH (20:29)
[2019-07-30] MEDS: VENLAFAXINE 37.5 MG TAB PO SCH (20:29)
--- NOTE | 2019-07-30 20:35 | CR.PDOC ---
General Date of Consultation: Jul 30, 2019 Referring Provider: Rolo Andres MD Attending Physician: FILIBERTO GALLOWAY MD Consultation Primary physician/ hospitalist: -Dr. Andres Reason for consult: -, Nausea, vomiting and abnormal CT scan. HPI: 54-year-old female patient with HTN, dyslipidemia, DM type II, neurofibromatosis type I, migraine headaches, presented to [facility] for complaints of acute onset nausea and vomiting which started on Thursday afternoon after her lunch, persistent vomiting, not resolved, unable to tolerate anything by mouth, associated with some upper abdominal discomfort/pain. Patient reports since hospitalization, her vomiting has improved but still having some nausea and upper abdominal discomfort. Patient had a CT scan of abdomen with IV contrast in the emergency room, which showed hypervascular jejunal nodules (2 less than 1 cm size nodules) , which were suspected to be carcinoids as per radiology report. Patient reports similar episode of abdominal pain with nausea and vomiting in March 2019, which resolved by itself. Patient denies any unusual food i ntake, recent travel, sick contacts and denies any diarrhea this time. Pertinent negative GI symptoms: Patient denies fever, sick contacts, recent travel, diarrhea, abdominal pain, loss of appetite, early satiety or unintentional weight loss. No history of hematemesis, melena or hematochezia. Patient reports regular bowel movements. Review of Systems: GI: as stated above CVS: No chest pain, No palpitations, No leg swelling. RS: No Shortness of breath, No Wheezing, no cough PRINTER MACHINE: No dizziness, No motor weakness, No sensory problems Hematology: No bruising, No gum bleeding, Musculoskeletal: No joint pain, ambulating well. Skin: No rash : No hematuria, No burning sensation of the urine ENT: No ear discharge/ pain, No dysphagia. Eyes: No photophobia. Jaundice Home medications: reviewed. Antithrombotic agents: -None Medical h/o: As above. Surgical h/o: None on abdomen. Social h/o: Alcohol: -Social alcohol use, smoking: Denies, IVDA/ drugs:. Denies. Family h/o of GI cancers - None Prior Endoscopies: --- EGD: -, None in the past --- Colonoscopy: -Had screening colonoscopy around 5 years ago, outside [facility]. No colon polyps as per patient. Prior GI evaluations: None in [facility]. Exam: Vitals: reviewed General: Alert and oriented x 3, not in distress HEENT: NO pallor, no icterus. Normal oropharynx, NO cervical lymph nodes. Chest: symmetric with bilateral clear air entry, CVS: S1, S2 heard, normal, no murmurs . Abdomen: non-distended, no surgical scars, soft, non-tender, no palpable masses, normal bowel sounds heard. Rectal exam: Patient refused / Deferred at this time. Extremities: no pedal edema, pulses palpable. PRINTER MACHINE: no focal motor or sensory deficits. Moves all extremities Skin: Cutaneous neurofibromas in the arms Labs: reviewed. Elevated lipase is, but normal pancreas on CT scan. Imaging: reviewed. Impression: -- Acute onset nausea, vomiting and upper abdominal pain, following food intake, labs showing elevated lipase, gradually improvement of symptoms with IV hydration -- likely acute gastroenteritis ( toxin mediated or Viral) vs possible pancreatitis ( no CT evidence of pancreatitis). -- Incidental finding of hypervascular nodules in jejunum -- suspected carcinoids as per radiology report. Other differentials include GISTs ( Gastrointestinal stromal tumors - are usually associated in NF type 1). Recommendations: - Patient educated about the test results, possible differential diagnoses and All questions answered. - IV hydration ( prefer ringers lactate for suspected mild pancreatitis). -- Advance diet as tolerated. - Consider elective ultrasound abdomen to rule out gallstones. - In view of suspected carcinoid/GIST, patient is educated about the need for EGD / push enterosocpy after acute symptoms are resolved. - The procedure, indications, risks (bleeding, perforation, infection, hypotension, respiratory depression, allergy, need for endotracheal intubation, surgery, colostomy, cardiac arrest, even ), benefits, limitations (e.g., missing a lesion), and all other alternatives (including no intervention) were explained to the patient who understood and agreed for the procedure. - Will schedule for EGD on Thursday - Nothing by mouth for breakfast on Thursday - We will review the CT images with the radiologist, and consider octreotide scan or capsule /double balloon enteroscopy based on above, for further evaluation. - Recall GI if any acute change in status. Plan of care discussed with patient and primary team. Patient verbalized understanding and agreed with the plan. Laboratory Data CBC/BMP Laboratory Tests 07/30/19 09:21 Allergies Coded Allergies: Dust (Unverified Allergy, Unknown, 06/13/08) ENVIROMENTAL (Verified Allergy, Unknown, 10/19/18) metoclopramide (Verified Allergy, Unknown, "WHITE SPOTS ON BRAIN", 07/29/19) bupropion (Verified Adverse Reaction, Intermediate, blurred vision, 10/28/18) citalopram (Verified Adverse Reaction, Intermediate, weight gain, 10/28/18) aspirin (Verified Adverse Reaction, Unknown, BRUISING, 07/29/19) dextran sulfate (Verified Adverse Reaction, Unknown, black outs, 10/28/18) Home Medications Scheduled Amlodipine Besylate (Amlodipine Besylate) 2.5 Mg Tablet, 2.5 MG PO DAILY, (Reported) Atorvastatin Calcium (Atorvastatin Calcium) 20 Mg Tab, 20 MG PO DAILY, (Reported) Calcium Carbonate/Vitamin D3 (Calcium 500-Vit D3 200 Caplet) 1 Tab Tab, 1 TAB PO DAILY, (Reported) Carvedilol (Carvedilol) 6.25 Mg Tablet, 6.25 MG PO BID, (Reported) Cholecalciferol (Vitamin D3) (Vitamin D3) 1,000 Unit Capsule, 2,000 UNIT PO DAILY, (Reported) Cyanocobalamin (Cyanocobalamin Injection) 1,000 Mcg/1 Ml Inj, 1,000 MCG IM MTHLY, (Reported) 17TH OF EACH MONTH Docusate Sodium (Colace) 100 Mg Capsule, 100 MG PO DAILY, (Reported) Ergocalciferol (Vitamin D2) (Vitamin D2) 50,000 Units Cap, 50,000 UNITS PO Q2WK, (Reported) EVERY OTHER THURSDAY Famotidine (Famotidine) 20 Mg Tab, 20 MG PO QHS, (Reported) Metformin HCl (Metformin ER Gastric) 500 Mg Tab, 500 MG PO QPM, (Reported) WITH DINNER Multivit with Calcium,Iron,Min (Women's Daily Formula) 1 Each Tablet, 1 TAB PO DAILY, (Reported) Onabotulinumtoxina (Botox) 200 Unit Vial, 200 UNIT INJ Q3M, (Reported) LAST DOSE IN April,07/29/19 Oxybutynin Chloride (Oxybutynin Chloride) 5 Mg Tablet, 5 MG PO DAILY, (Reported) Primidone (Primidone) 50 Mg Tab, 50 MG PO BID, (Reported) Sennosides (Senokot) 8.6 Mg Tablet, 1 TAB PO DAILY, (Reported) Venlafaxine HCl (Venlafaxine HCl) 37.5 Mg Tablet, 37.5 MG PO QHS, (Reported) Zonisamide (Zonisamide) 100 Mg Cap, 100 MG PO BID, (Reported) Scheduled PRN Methocarbamol (Methocarbamol) 500 Mg Tablet, 500 MG PO for MUSCLE SPASMS, (Reported) FILIBERTO GALLOWAY MD Jul 30, 2019 20:35
[2019-07-31 06:00] VITALS: BP 110/61
[2019-07-31 07:12] LABS: HEMATOCRIT 44.6 % (36.0-47.0); HEMOGLOBIN 14.2 g/dl (12.0-15.5); MEAN CORPUSCULAR HEMOGLOBIN 30.7 pg (27.0-33.0); MEAN CORPUSCULAR HGB CONC 31.8 g/dl (32.0-36.5); MEAN CORPUSCULAR VOLUME 96.3 fl (80.0-96.0); PLATELET COUNT, AUTOMATED 248 10^3/uL (150-450); RED BLOOD COUNT 4.63 10^6/uL (4.00-5.40)
[2019-07-31] MEDS: HumaLOG INSULIN (NovoLOG) PER UNIT SC SCH ×4 (07:30→21:00)
[2019-07-31 07:36] LABS: ALBUMIN 3.3 GM/DL (3.2-5.2); ALT/SGPT 23 U/L (12-78); BILIRUBIN,TOTAL 0.6 MG/DL (0.2-1.0); BLOOD UREA NITROGEN 6 MG/DL (7-18); CALCIUM LEVEL 8.1 MG/DL (8.5-10.1); CARBON DIOXIDE LEVEL 26 MEQ/L (21-32); CHLORIDE LEVEL 111 MEQ/L (98-107); CREATININE FOR GFR 0.65 MG/DL (0.55-1.30); GLOMERULAR FILTRATION RATE > 60.0 (>51); GLUCOSE, FASTING 89 MG/DL (70-100); LIPASE 133 U/L (73-393); POTASSIUM SERUM 3.8 MEQ/L (3.5-5.1); SODIUM LEVEL 142 MEQ/L (136-145); TOTAL PROTEIN 6.7 GM/DL (6.4-8.2)
[2019-07-31] MEDS: VITAMIN D 1,000 INTERNATIONAL UNITS TABLET PO SCH (10:22)
[2019-07-31] MEDS: ENOXAPARIN 40 MG/0.4 ML SYRINGE (J1650) SC SCH (10:22)
[2019-07-31] MEDS: DOCUSATE SODIUM 100 MG CAP PO SCH (10:23)
[2019-07-31] MEDS: oxyBUTYnin 5 MG TAB PO SCH (10:24)
[2019-07-31] MEDS: CALCIUM/VITAMIN D 500 MG TAB PO SCH (10:24)
[2019-07-31] MEDS: MULTIVITAMINS/MINERALS THERAP 1 TAB PO SCH (10:26)
[2019-07-31] MEDS: ATORVASTATIN 20 MG TAB PO SCH (10:26)
[2019-07-31] MEDS: PRIMIDONE 50 MG TAB PO SCH ×2 (10:26→21:10)
[2019-07-31] MEDS: ZONISAMIDE 100 MG CAP (ZONEGRAN) PO SCH ×2 (10:27→21:11)
[2019-07-31] MEDS: CARVedilol 6.25 MG TAB PO SCH ×2 (10:28→21:10)
[2019-07-31 14:00] VITALS: BP 114/66
[2019-07-31] MEDS: FAMOTIDINE 20 MG TAB PO SCH (21:09)
[2019-07-31] MEDS: ACETAMINOPHEN TAB 650MG DOSE (2X325MG) PO PRN (21:09)
[2019-07-31] MEDS: VENLAFAXINE 37.5 MG TAB PO SCH (21:10)
[2019-07-31 22:00] VITALS: BP 119/72
[2019-08-01] VITALS (11 sets, daily range): BP systolic 123–140; BP diastolic 61–81
[2019-08-01] MEDS: NS 1,000 ML IV SCH ×2 (00:18→10:16)
[2019-08-01 07:04] LABS: HEMATOCRIT 39.9 % (36.0-47.0); HEMOGLOBIN 13.2 g/dl (12.0-15.5); MEAN CORPUSCULAR HEMOGLOBIN 31.4 pg (27.0-33.0); MEAN CORPUSCULAR HGB CONC 33.1 g/dl (32.0-36.5); MEAN CORPUSCULAR VOLUME 94.8 fl (80.0-96.0); PLATELET COUNT, AUTOMATED 240 10^3/uL (150-450); RED BLOOD COUNT 4.21 10^6/uL (4.00-5.40); WHITE BLOOD COUNT 3.9 10^3/uL (4.0-10.0)
[2019-08-01] MEDS: HumaLOG INSULIN (NovoLOG) PER UNIT SC SCH ×4 (07:18→20:33)
[2019-08-01 07:25] LABS: ALBUMIN 3.2 GM/DL (3.2-5.2); ALT/SGPT 28 U/L (12-78); BILIRUBIN,TOTAL 0.3 MG/DL (0.2-1.0); BLOOD UREA NITROGEN 9 MG/DL (7-18); CALCIUM LEVEL 7.9 MG/DL (8.5-10.1); CARBON DIOXIDE LEVEL 25 MEQ/L (21-32); CHLORIDE LEVEL 113 MEQ/L (98-107); CREATININE FOR GFR 0.62 MG/DL (0.55-1.30); GLOMERULAR FILTRATION RATE > 60.0 (>51); GLUCOSE, FASTING 103 MG/DL (70-100); LIPASE 316 U/L (73-393); POTASSIUM SERUM 3.9 MEQ/L (3.5-5.1); SODIUM LEVEL 144 MEQ/L (136-145)
[2019-08-01] MEDS: ENOXAPARIN 40 MG/0.4 ML SYRINGE (J1650) SC SCH (08:28)
--- NOTE | 2019-08-01 08:39 | IPNPDOC ---
Subjective Date Seen The patient was seen on 08/01/19. Subjective Chief Complaint/HPI No note available from 07/31/19. Pt this morning states that her nausea is about the same, she is anxious this morning for endoscopy. General: Denies: Fatigue Constitutional: Denies: Chills, Fever ENT: Denies: Head Aches Skin: Denies: Rash Pulmonary: Denies: Dyspnea, Cough Cardiovascular: Denies: Chest Pain, Palpitations Gastrointestinal: Reports: Nausea, Abdominal Pain (crampy, bloated. ); Denies: Vomiting Neurological: Denies: Weakness Psych: Reports: Anxiety Objective Physical Examination General Exam: Positive: Alert, No Acute Distress Eye Exam: Negative: Sclera icteric ENT Exam: Positive: Mucous membr. moist/pink Neck Exam: Positive: Supple Chest Exam: Positive: Clear to auscultation, Normal air movement Heart Exam: Positive: Rate Normal, Regular Rhythm, Normal S1, Normal S2; Negative: Murmurs, Rubs Telemetry: Positive: No significant arrhythmia Abdomen Exam: Positive: Normal bowel sounds, Soft; Negative: Tenderness, Hepatospenomegaly Extremity Exam: Negative: Edema Skin Exam: Positive: Nl turgor and temperature Neuro Exam: Positive: Normal Gait, Normal Speech Psych Exam: Positive: Mental status NL Assessment /Plan Problems (1) Gastroenteritis Status: Acute Response to Treatment: Stable, Improving Discussed With: Nurse, Patient Problem Specific Plan: Monitor Clinically, Repeat Labs Problem Text: 08/01 ADT, dc IVF if tolerates, plan dc in AM (2) Abnormal finding on CT scan Status: Acute Response to Treatment: Stable Discussed With: Nurse, Patient Problem Specific Plan: Consult Specialist, Monitor Clinically, Repeat Labs Problem Text: favor NF 08/01 EGD-Ch: LA Grade A (one or more mucosal breaks less than 5 mm, not extending between tops of 2 mucosal folds) esophagitis with no bleeding was found in the distal esophagus. No gross lesions were noted in the entire examined stomach. Scattered moderate inflammation characterized by erythema, friability, granularity and shallow ulcerations was found in the duodenal bulb, in the second portion of the duodenum, in the third portion of the duodenum and in the fourth portion of the duodenum. Biopsies for histology were taken with a cold forceps for evaluation of celiac disease. Verification of patient identification for the specimen was done by the physician and nurse using the patient's name, date and medical record number. Estimated blood loss was minimal. Diffuse mildly granular mucosa was found in the jejunum. Area was tattooed with an injection of Spot (carbon black). Spot marking was done to renaldo the distal extent of small bowel examined ( approximately 50 cm of jejunum is examined). There is no endoscopic evidence of bleeding, mass, nodule or polyps in the jejunum. (3) Hypertension Status: Chronic Response to Treatment: Stable Problem Specific Plan: Monitor Clinically Problem Text: Pressures stable. Plan/VTE VTE Prophylaxis Ordered?: Yes VS, I&O, 24H, Fishbone Vital Signs/I&O Vital Signs Date Time Temp Pulse Resp B/P (MAP) Pulse Ox O2 Delivery O2 Flow Rate FiO2 08/01/19 06:00 97.4 70 18 128/70 (89) 96 Room Air I&O- Last 24 Hours up to 6 AM 08/01/19 06:00 Intake Total 600 ml Output Total 1000 ml Balance -400 ml Laboratory Data 24H LABS Laboratory Tests 2 07/31/19 11:18: Bedside Glucose (Misc Panel) 92 07/31/19 17:15: Bedside Glucose (Misc Panel) 99 07/31/19 21:01: Bedside Glucose (Misc Panel) 120H 08/01/19 06:25: Bedside Glucose (Misc Panel) 96 08/01/19 06:46: Nucleated Red Blood Cells % (auto) 0.0, Anion Gap 6L, Glomerular Filtration Rate > 60.0, Calcium Level 7.9L, Total Bilirubin 0.3, Aspartate Amino Transf (AST/SGOT) 18, Alanine Aminotransferase (ALT/SGPT) 28, Alkaline Phosphatase 92, Total Protein 6.0L, Total Protein (PEP) 6.0L, Albumin 3.2, Albumin/Globulin Ratio 1.14, Lipase 316 CBC/BMP Laboratory Tests 08/01/19 06:46 YANA LANDA PA-C Aug 01, 2019 08:39 Sulaiman Sharpe M.D. Aug 01, 2019 17:37
[2019-08-01] MEDS: MULTIVITAMINS/MINERALS THERAP 1 TAB PO SCH (08:58)
[2019-08-01] MEDS: ATORVASTATIN 20 MG TAB PO SCH (08:59)
[2019-08-01] MEDS: CALCIUM/VITAMIN D 500 MG TAB PO SCH (08:59)
[2019-08-01] MEDS: VITAMIN D 1,000 INTERNATIONAL UNITS TABLET PO SCH (08:59)
[2019-08-01] MEDS: DOCUSATE SODIUM 100 MG CAP PO SCH (08:59)
[2019-08-01] MEDS: ZONISAMIDE 100 MG CAP (ZONEGRAN) PO SCH ×2 (09:00→20:32)
[2019-08-01] MEDS: oxyBUTYnin 5 MG TAB PO SCH (09:00)
[2019-08-01] MEDS: PRIMIDONE 50 MG TAB PO SCH ×2 (09:14→20:32)
[2019-08-01] MEDS: CARVedilol 6.25 MG TAB PO SCH ×2 (09:14→20:33)
[2019-08-01] MEDS: ONDANSETRON 4MG/2ML VIAL (J2405) IV PRN ×2 (11:18→19:49)
[2019-08-01] MEDS ORDERED: propofoL 500 MG/50 ML VIAL As Ordered ONE (12:04)
[2019-08-01] MEDS ORDERED: LIDOCAINE 2% INJ 100 MG/5 ML SDV (FOR ANES.) As Ordered ONE (12:04)
[2019-08-01] MEDS ORDERED: SIMETHICONE 40MG/0.6ML DROPS 30ML As Ordered ONE (12:22)
[2019-08-01] MEDS ORDERED: ONDANSETRON 4MG/2ML VIAL (J2405) IV PRN (13:00)
[2019-08-01] MEDS ORDERED: LR 1,000 ML IV SCH (13:00)
--- NOTE | 2019-08-01 13:09 | ROOR ---
Patient Name: Barbara Roman Procedure Date: 08/01/2019 12:19 PM Date of : 1965 Age: 54 Room: Main OR Gender: Female Note Status: Finalized Procedure: Upper GI endoscopy Indications: Abnormal CT of the GI tract Providers: Kevin Martinez MD Referring MD: Rolo Andres MD Requesting Provider: Medicines: Monitored Anesthesia Care Complications: No immediate complications. Procedure: Pre-Anesthesia Assessment: - Prior to the procedure, a History and Physical was performed, and patient medications and allergies were reviewed. The patient is competent. The risks and benefits of the procedure and the sedation options and risks were discussed with the patient. All questions were answered and informed consent was obtained. Patient identification and proposed procedure were verified by the physician, the nurse and the anesthesiologist in the procedure room. Mental Status Examination: alert and oriented. Airway Examination: normal oropharyngeal airway and neck mobility. Respiratory Examination: clear to auscultation. Prophylactic Antibiotics: The patient does not require prophylactic antibiotics. Prior Anticoagulants: The patient has taken no previous anticoagulant or antiplatelet agents. ASA Grade Assessment: II - A patient with mild systemic disease. After reviewing the risks and benefits, the patient was deemed in satisfactory condition to undergo the procedure. The anesthesia plan was to use monitored anesthesia care (MAC). Immediately prior to administration of medications, the patient was re-assessed for adequacy to receive sedatives. The heart rate, respiratory rate, oxygen saturations, blood pressure, adequacy of pulmonary ventilation, and response to care were monitored throughout the procedure. The physical status of the patient was re-assessed after the procedure. The Colonoscope was introduced through the mouth, and advanced to the second part of duodenum. The upper GI endoscopy was accomplished without difficulty. The patient tolerated the procedure well. Findings: LA Grade A (one or more mucosal breaks less than 5 mm, not extending between tops of 2 mucosal folds) esophagitis with no bleeding was found in the distal esophagus. No gross lesions were noted in the entire examined stomach. Scattered moderate inflammation characterized by erythema, friability, granularity and shallow ulcerations was found in the duodenal bulb, in the second portion of the duodenum, in the third portion of the duodenum and in the fourth portion of the duodenum. Biopsies for histology were taken with a cold forceps for evaluation of celiac disease. Verification of patient identification for the specimen was done by the physician and nurse using the patient's name, date and medical record number. Estimated blood loss was minimal. Diffuse mildly granular mucosa was found in the jejunum. Area was tattooed with an injection of Spot (carbon black). Spot marking was done to renaldo the distal extent of small bowel examined ( approximately 50 cm of jejunum is examined). There is no endoscopic evidence of bleeding, mass, nodule or polyps in the jejunum. Impression: - LA Grade A reflux esophagitis. - No gross lesions in the stomach. - Duodenitis. Biopsied. - Granular jejunal mucosa. Spot marking was done to renaldo the distal extent of small bowel examined ( approximately 50 cm of jejunum is examined). No Luminal nodules noted. Recommendation: - Patient has a contact number available for emergencies. The signs and symptoms of potential delayed complications were discussed with the patient. Return to normal activities tomorrow. Written discharge instructions were provided to the patient. - Resume previous diet. - Continue present medications. - Await pathology results. - Perform an octreotide scan at appointment to be scheduled. - Return to GI clinic 1 - 2 weeks. Please call GI clinic @ [phone] for apppointment date and time. - Return to primary care physician. Kevin Martinez MD Kevin Martinez MD 08/01/2019 1:08:58 PM Electronically signed by Kevin Martinez MD Number of Addenda: 0 Note Initiated On: 08/01/2019 12:19 PM Estimated Blood Loss: Estimated blood loss was minimal.
[2019-08-01] MEDS ORDERED: ONDANSETRON 4MG/2ML VIAL (J2405) As Ordered ONE (13:20)
--- NOTE | 2019-08-01 17:33 | IPN ---
DATE: 07/31/2019 SUBJECTIVE: Ms. Roman is here for continued care related to hyperlipasemia associated with upper abdominal pain, interpreted as pancreatitis. She had nausea and vomiting as well. Her lipase has normalized. She still has some abdominal discomfort but is able to tolerate a full diet since being advanced last night by Dr. Martinez. Dr. Martinez reviewed with her the findings of the CT and plans for upper endoscopy with push enteroscopy if possible to see if a biopsy can be done to further evaluate these enhancing nodules demonstrated on CT. OBJECTIVE: Blood pressure 110/61, pulse 75, respiratory rate 16, temperature 97.1. LABORATORY DATA: Electrolytes were unremarkable except for a slightly elevated chloride, calcium 8.1, albumin to globulin ratio was low, albumin level low normal at 3.3, and lipase has normalized. She was 1976 at 04:00 p.m. on 07/29/2019 and at 09:00 a.m. on 07/30/2019, she was 143 and remains 133 today. PHYSICAL EXAMINATION: She is alert, pleasant, cooperative. LUNGS: Clear. No wheezing, rales or rhonchi. No basilar dullness. HEART: Regular rhythm without murmurs. ABDOMEN: Bowel sounds are active, tender epigastrium, and less tender diffusely. Negative pelvic shake tenderness. No rebound. ASSESSMENT: Resolving presumptive pancreatitis, CT showing two 9 and 7 mm nodules in the jejunum, diabetes mellitus type 2 by history, migraine syndrome by history, history of gastroesophageal reflux disease (GERD), neurofibromatosis type 1. PLAN: She is tolerating a full diet at this time. We will take her off her IV fluids. We will resume the IV fluids at midnight when she will need to be nothing by mouth in preparation for tomorrow's test. Dr. Martinez plans upper endoscopy with push endoscopy if possible. Anticipate discharge following this procedure unless other plans are recommended by Dr. Martinez at that time.
[2019-08-01] MEDS: VENLAFAXINE 37.5 MG TAB PO SCH (20:32)
[2019-08-01] MEDS: ACETAMINOPHEN TAB 650MG DOSE (2X325MG) PO PRN (20:32)
[2019-08-01] MEDS: FAMOTIDINE 20 MG TAB PO SCH (20:32)
[2019-08-02 00:26] VITALS: BP 102/72
[2019-08-02 04:04] VITALS: BP 118/73
[2019-08-02] MEDS: ACETAMINOPHEN TAB 650MG DOSE (2X325MG) PO PRN (04:14)
[2019-08-02 07:01] LABS: HEMATOCRIT 39.8 % (36.0-47.0); HEMOGLOBIN 13.4 g/dl (12.0-15.5); MEAN CORPUSCULAR HEMOGLOBIN 31.3 pg (27.0-33.0); MEAN CORPUSCULAR HGB CONC 33.7 g/dl (32.0-36.5); PLATELET COUNT, AUTOMATED 248 10^3/uL (150-450); RED BLOOD COUNT 4.28 10^6/uL (4.00-5.40)
[2019-08-02 07:28] LABS: ALBUMIN 3.2 GM/DL (3.2-5.2); ALT/SGPT 27 U/L (12-78); BILIRUBIN,TOTAL 0.6 MG/DL (0.2-1.0); BLOOD UREA NITROGEN 8 MG/DL (7-18); CALCIUM LEVEL 8.6 MG/DL (8.5-10.1); CARBON DIOXIDE LEVEL 24 MEQ/L (21-32); CHLORIDE LEVEL 109 MEQ/L (98-107); CREATININE FOR GFR 0.76 MG/DL (0.55-1.30); GLOMERULAR FILTRATION RATE > 60.0 (>51); GLUCOSE, FASTING 109 MG/DL (70-100); POTASSIUM SERUM 3.5 MEQ/L (3.5-5.1); SODIUM LEVEL 140 MEQ/L (136-145); TOTAL PROTEIN 6.6 GM/DL (6.4-8.2)
[2019-08-02] MEDS: HumaLOG INSULIN (NovoLOG) PER UNIT SC SCH ×4 (07:30→20:55)
[2019-08-02] MEDS: ZONISAMIDE 100 MG CAP (ZONEGRAN) PO SCH ×2 (08:18→20:39)
[2019-08-02] MEDS: VITAMIN D 1,000 INTERNATIONAL UNITS TABLET PO SCH (08:18)
[2019-08-02] MEDS: oxyBUTYnin 5 MG TAB PO SCH (08:18)
[2019-08-02] MEDS: PRIMIDONE 50 MG TAB PO SCH ×2 (08:19→20:39)
[2019-08-02] MEDS: CARVedilol 6.25 MG TAB PO SCH ×2 (08:19→20:38)
[2019-08-02] MEDS: MULTIVITAMINS/MINERALS THERAP 1 TAB PO SCH (08:19)
[2019-08-02] MEDS: ATORVASTATIN 20 MG TAB PO SCH (08:19)
[2019-08-02] MEDS: DOCUSATE SODIUM 100 MG CAP PO SCH (08:19)
[2019-08-02] MEDS: CALCIUM/VITAMIN D 500 MG TAB PO SCH (08:19)
[2019-08-02] MEDS: ENOXAPARIN 40 MG/0.4 ML SYRINGE (J1650) SC SCH (08:19)
[2019-08-02 08:27] VITALS: BP 106/77
--- NOTE | 2019-08-02 10:35 | IPNPDOC ---
Subjective Date Seen The patient was seen on 08/02/19. Subjective Chief Complaint/HPI Pt this morning without new concerns. She is feeling better than last night. She spiked a fever with chills last night, lack of appetite. General: Denies: Fatigue Constitutional: Reports: Chills, Fever ENT: Denies: Head Aches Pulmonary: Reports: Cough (slight dry cough, present and unchanged since admission); Denies: Dyspnea Cardiovascular: Denies: Chest Pain, Palpitations Gastrointestinal: Denies: Nausea, Vomiting, Diarrhea Neurological: Denies: Weakness Psych: Reports: Mood Normal Objective Physical Examination General Exam: Positive: Alert, No Acute Distress Eye Exam: Negative: Sclera icteric ENT Exam: Positive: Mucous membr. moist/pink Neck Exam: Positive: Supple Chest Exam: Positive: Clear to auscultation, Normal air movement Heart Exam: Positive: Rate Normal, Regular Rhythm, Normal S1, Normal S2; Negative: Murmurs, Rubs Telemetry: Positive: No significant arrhythmia Abdomen Exam: Positive: Normal bowel sounds, Soft; Negative: Tenderness, Hepatospenomegaly Extremity Exam: Negative: Edema Neuro Exam: Positive: Normal Gait, Normal Speech Psych Exam: Positive: Mental status NL Assessment /Plan Problems (1) Gastroenteritis Status: Acute Response to Treatment: Stable, Improving Discussed With: Nurse, Patient Problem Specific Plan: Monitor Clinically, Repeat Labs Problem Text: 08/02 Pt spiked fever overnight, WBC jumped from 3.9 to 14, if she remains afebrile, and WBC trends down will DC in AM. Due to fever overni ght, blood cultures obtained and pending. 08/01 ADT, dc IVF if tolerates, plan dc in AM (2) Abnormal finding on CT scan Status: Acute Response to Treatment: Stable Discussed With: Nurse, Patient Problem Specific Plan: Consult Specialist, Monitor Clinically, Repeat Labs Problem Text: favor NF 08/01 EGD-Ch: LA Grade A (one or more mucosal breaks less than 5 mm, not extending between tops of 2 mucosal folds) esophagitis with no bleeding was found in the distal esophagus. No gross lesions were noted in the entire examined stomach. Scattered moderate inflammation characterized by erythema, friability, granularity and shallow ulcerations was found in the duodenal bulb, in the second portion of the duodenum, in the third portion of the duodenum and in the fourth portion of the duodenum. Biopsies for histology were taken with a cold forceps for evaluation of celiac disease. Verification of patient identification for the specimen was done by the physician and nurse using the patient's name, date and medical record number. Estimated blood loss was minimal. Diffuse mildly granular mucosa was found in the jejunum. Area was tattooed with an injection of Spot (carbon black). Spot marking was done to renaldo the distal extent of small bowel examined ( approximately 50 cm of jejunum is examined). There is no endoscopic evidence of bleeding, mass, nodule or polyps in the jejunum. (3) Hypertension Status: Chronic Response to Treatment: Stable Problem Specific Plan: Monitor Clinically Problem Text: Pressures stable. (4) Gastritis Status: Acute Problem Text: Noted on EGD, will add omeprazole 40 mg daily, counseled on aggravating foods. Plan/VTE VTE Prophylaxis Ordered?: Yes VS, I&O, 24H, Fishbone Vital Signs/I&O Vital Signs Date Time Temp Pulse Resp B/P (MAP) Pulse Ox O2 Delivery O2 Flow Rate FiO2 08/02/19 08:27 98.7 77 17 106/77 (87) 95 Room Air 08/01/19 13:02 2 I&O- Last 24 Hours up to 6 AM 08/02/19 06:00 Intake Total 3075 ml Output Total 1850 ml Balance 1225 ml Laboratory Data 24H LABS Laboratory Tests 2 08/01/19 11:04: Bedside Glucose (Misc Panel) 99 08/01/19 13:26: Bedside Glucose (Misc Panel) 78 08/01/19 17:19: Bedside Glucose (Misc Panel) 88 08/01/19 19:45: Bedside Glucose (Misc Panel) 157H 08/02/19 06:49: Nucleated Red Blood Cells % (auto) 0.0, Anion Gap 7L, Glomerular Filtration Rate > 60.0, Calcium Level 8.6, Total Bilirubin 0.6#, Aspartate Amino Transf (AST/SGOT) 13, Alanine Aminotransferase (ALT/SGPT) 27, Alkaline Phosphatase 85, Total Protein 6.6, Albumin 3.2, Albumin/Globulin Ratio 0.94L CBC/BMP Laboratory Tests 08/02/19 06:49 Microbiology Microbiology 08/01/19 Blood Culture, Received Pending 08/01/19 Blood Culture, Received Pending YANA LANDA PA-C Aug 02, 2019 10:35
[2019-08-02] MEDS: OMEPRAZOLE 20 MG CAP PO SCH (11:26)
[2019-08-02 11:51] LABS: ALBUMIN 3.62 GM/DL (3.29-5.55); ALBUMIN % 60.3 % (55.8-66.1); ALPHA-1-GLOBULIN % 4.7 % (2.9-4.9); ALPHA-1-GLOBULINS 0.28 GM/DL (0.17-0.41); ALPHA-2-GLOBULINS % 11.6 % (7.1-11.8); BETA-1-GLOBULINS 0.35 GM/DL (0.28-0.60); BETA-1-GLOBULINS % 5.9 % (4.7-7.2); BETA-2-GLOBULINS 0.34 GM/DL (0.19-0.55); BETA-2-GLOBULINS % 5.7 % (3.2-6.5); GAMMA GLOBULIN % 11.8 % (11.1-18.8); GAMMA GLOBULINS 0.71 GM/DL (0.65-1.58)
[2019-08-02 14:00] VITALS: BP 110/65
[2019-08-02 19:56] VITALS: BP 108/60
[2019-08-02] MEDS: FAMOTIDINE 20 MG TAB PO SCH (20:38)
[2019-08-02] MEDS: VENLAFAXINE 37.5 MG TAB PO SCH (20:39)
[2019-08-03 00:43] VITALS: BP 117/65
[2019-08-03 03:55] VITALS: BP 128/68
[2019-08-03] MEDS: HumaLOG INSULIN (NovoLOG) PER UNIT SC SCH ×2 (07:30→11:46)
[2019-08-03 08:46] LABS: HEMATOCRIT 40.7 % (36.0-47.0); HEMOGLOBIN 13.4 g/dl (12.0-15.5); MEAN CORPUSCULAR HGB CONC 32.9 g/dl (32.0-36.5); MEAN CORPUSCULAR VOLUME 94.2 fl (80.0-96.0); PLATELET COUNT, AUTOMATED 256 10^3/uL (150-450); RED BLOOD COUNT 4.32 10^6/uL (4.00-5.40); WHITE BLOOD COUNT 8.8 10^3/uL (4.0-10.0)
[2019-08-03] MEDS: OMEPRAZOLE 20 MG CAP PO SCH (08:53)
[2019-08-03] MEDS: DOCUSATE SODIUM 100 MG CAP PO SCH (08:53)
[2019-08-03] MEDS: ONDANSETRON 4MG/2ML VIAL (J2405) IV PRN (08:53)
[2019-08-03 08:54] VITALS: BP 119/72
[2019-08-03] MEDS: oxyBUTYnin 5 MG TAB PO SCH (08:54)
[2019-08-03] MEDS: CARVedilol 6.25 MG TAB PO SCH (08:54)
[2019-08-03] MEDS: PRIMIDONE 50 MG TAB PO SCH (08:54)
[2019-08-03] MEDS: VITAMIN D 1,000 INTERNATIONAL UNITS TABLET PO SCH (08:54)
[2019-08-03] MEDS: CALCIUM/VITAMIN D 500 MG TAB PO SCH (08:54)
[2019-08-03] MEDS: MULTIVITAMINS/MINERALS THERAP 1 TAB PO SCH (08:54)
[2019-08-03] MEDS: ATORVASTATIN 20 MG TAB PO SCH (08:54)
[2019-08-03] MEDS: ENOXAPARIN 40 MG/0.4 ML SYRINGE (J1650) SC SCH (08:55)
[2019-08-03] MEDS: ZONISAMIDE 100 MG CAP (ZONEGRAN) PO SCH (08:55)
[2019-08-03 09:11] LABS: ALBUMIN 3.2 GM/DL (3.2-5.2); ALT/SGPT 31 U/L (12-78); BILIRUBIN,TOTAL 0.4 MG/DL (0.2-1.0); BLOOD UREA NITROGEN 7 MG/DL (7-18); CALCIUM LEVEL 8.3 MG/DL (8.5-10.1); CARBON DIOXIDE LEVEL 23 MEQ/L (21-32); CHLORIDE LEVEL 112 MEQ/L (98-107); CREATININE FOR GFR 0.61 MG/DL (0.55-1.30); GLOMERULAR FILTRATION RATE > 60.0 (>51); GLUCOSE, FASTING 99 MG/DL (70-100); POTASSIUM SERUM 4.1 MEQ/L (3.5-5.1); SODIUM LEVEL 141 MEQ/L (136-145); TOTAL PROTEIN 6.5 GM/DL (6.4-8.2)
--- NOTE | 2019-08-03 09:26 | IPNPDOC ---
Date Seen The patient was seen on 08/03/19. Progress Note Interval history: ( patient examined yesterday 08/02/2019 at around 1PM) Patient had Push enterosocpy, which did not show any small bowel nodules or masses. ( detailed report - please see operative note). Patient symptoms of abdominal pain and nausea and vomiting have improved. as per discussion with the radiologist, patient was ordered for Octreotide scan but as per the floor nursing team, I was told the test usually is done as outpatient basis and it will require prior authorization. Patient had borderline fever spike and elevated WBC but clinically patient does not have any symptoms. Exam: Vitals: reviewed. had one fever spike. no tachycardia and stable BP> General: Alert and oriented x 3, not in distress HEENT: NO pallor, no icterus. Normal oropharynx, NO cervical lymph nodes. Chest: symmetric with bilateral clear air entry, CVS: S1, S2 heard, normal, no murmurs . Abdomen: non-distended, no surgical scars, soft, non-tender, no palpable masses, normal bowel sounds heard. Extremities: no pedal edema, pulses palpable. COUNTERINTELLIGENCE SPECIALIST: no focal motor or sensory deficits. Moves all extremities Skin: Cutaneous neurofibromas in the arms Labs: reviewed. Impression: -- Acute onset nausea, vomiting and upper abdominal pain, following food intake, labs showing elevated lipase, gradually improvement of symptoms with IV hydration -- likely acute gastroenteritis ( toxin mediated or Viral) vs possible pancreatitis ( no CT evidence of pancreatitis). -- Incidental finding of hypervascular nodules in jejunum -- suspected carcinoids as per radiology report. Other differentials include GISTs ( Gastrointestinal stromal tumors - are usually associated in NF type 1). s/p Push enterosocpy- no evidence of the nodule/ mass/ polyps in examined small bowel. Recommendations: - Patient educated about the test results, possible differential diagnoses and All questions answered. - Advance diet as tolerated. - As the octreotide scan is not in-patient and as clinically patient is stable, will follow this up in clinic electively after getting prior auth from the insurance. - Patient is educated on the same and she agrees to follow it up in clinic. - Consider elective ultrasound abdomen to rule out gallstones. - Recall GI if any acute change in status. - Upon discharge please give appointment in GI clinic in 1-2 weeks. Plan of care discussed with patient and primary team. Patient verbalized understanding and agreed with the plan. VS, I&O, 24H, Fishbone Laboratory Data 24H LABS Laboratory Tests 2 08/02/19 11:25: Bedside Glucose (Misc Panel) 84 08/02/19 16:37: Bedside Glucose (Misc Panel) 83 08/02/19 19:56: Bedside Glucose (Misc Panel) 114H 08/03/19 06:50: Bedside Glucose (Misc Panel) 102 08/03/19 08:16: Nucleated Red Blood Cells % (auto) 0.0, Anion Gap 6L, Glomerular Filtration Rate > 60.0, Calcium Level 8.3L, Total Bilirubin 0.4, Aspartate Amino Transf (AST/SGOT) 14, Alanine Aminotransferase (ALT/SGPT) 31, Alkaline Phosphatase 91, Total Protein 6.5, Albumin 3.2, Albumin/Globulin Ratio 0.97L CBC/BMP Laboratory Tests 08/03/19 08:16 Microbiology Microbiology 08/01/19 Blood Culture - Preliminary, Resulted No growth after 24 hours . All specim... 08/01/19 Blood Culture - Preliminary, Resulted No growth after 24 hours . All specim... FILIBERTO GALLOWAY MD Aug 03, 2019 09:26
[2019-08-03] MEDS ORDERED: ZOFR4TAB16 PO (11:53)
--- NOTE | 2019-08-03 12:15 | DSES ---
DATE OF ADMISSION: 07/29/2019 DATE OF DISCHARGE: 08/03/2019 DIAGNOSIS: Abdominal pain - gastroenteritis versus small bowel tumors. HISTORY: Barbara Roman was admitted with a few-day history of nausea and vomiting, diarrhea and abdominal pain. Details are as history and physical on admission. HOSPITAL COURSE: She was admitted to a medical bed. Initially diagnosed with pancreatitis. There was no pancreatitis seen on CT imaging. I do not agree with that diagnosis. It seemed to be more viral enteritis. She responded to IV fluids and antinausea medications. She had a CT of the abdomen and pelvis that suggested hypervascular jejunal nodules. She was seen in consultation by Dr. Martinez who did push enteroscopy. No luminal nodules were seen in the jejunum. Spot marking was done to renaldo distal extent of the small bowel examined. Recommended octreotide scan. This was done today. The results will not be back till tomorrow. She would like to go home. She is not having any significant nausea or vomiting and is taking oral diet and would like to be discharged. On the day of discharge, she is resting comfortably. Vital signs are stable. Lungs clear. Heart regular rhythm. Abdomen soft, nontender. No peripheral edema. LABS: White count is down to 8.8 today, hemoglobin 13.4. Electrolytes are unremarkable. Blood sugars are generally around 100. DISPOSITION: She is discharged home in improved and stable condition. She will return tomorrow for the second phase of her octreotide study. She will followup with Dr. Sharpe in a week. She will followup with Dr. Martinez per his office. Diet and activity are as tolerated. MEDICATIONS: - Continue to be on amlodipine 2.5 mg - atorvastatin 20 mg daily - calcium with vitamin D. - carvedilol 6.25 mg twice a day - vitamin B12 1000 mcg intramuscular monthly - Colace as needed. - vitamin D 50,000 units every 2 weeks - Famotidine 20 mg nightly - metformin 500 mg at bedtime - methocarbamol 500 mg as needed for spasms - oxybutynin 5 mg daily - tramadol 50 mg twice a day - Senokot as needed - venlafaxine 37.5 mg at bedtime - zonisamide 100 mg twice a day I sent a prescription for some Zofran 4 mg every 6 hours as needed as needed for nausea. She understands that she is to return tomorrow for a second part of her octreotide study. edited: 08/04/2019 655 gale OSORIO
[2019-08-03] MEDS: ACETAMINOPHEN TAB 650MG DOSE (2X325MG) PO PRN (13:07)
[2019-08-03 14:00] VITALS: BP 109/70
--- NOTE | 2019-08-05 13:52 | REP ---
NUCLEAR MEDICINE WHOLE BODY TUMOR LOCALIZATION INDIUM 111 OCTREOTIDE SCAN, WITH SPECT IMAGING: Following the intravenous administration of 6.6 millicuries Indium 111 Octreoscan agent, multiple images of the whole body are obtained at 4 hours, 24 hours and 48 hours post injection. SPECT imaging is performed in the axial, coronal and sagittal planes. Correlation is made with CT scan of 07/29/2019 which showed two enhancing mucosal nodules in the right-sided small bowel, measuring 9 mm and 7 mm in diameter respectively. I do not see evidence of radiotracer uptake at the location of either of these mucosal nodules. There is expected normal bile distribution with a radiotracer in the liver and spleen, as well as in both kidneys. There is expected colonic activity noted, predominantly on the right side. No definite foci of small bowel uptake are seen. IMPRESSION: No evidence of significant uptake of the radiotracer in either of the two mucosal small bowel nodules in the right mid abdomen. There is also no other evidence of radiotracer uptake elsewhere in the body. Electronically Signed by Femi Deleon MD 08/05/2019 03:34 P
[2019-08-11] MEDS ORDERED: VITAMIN D 50,000 UNITS CAPSULE (ERGOCALCIFEROL 1.25MG) PO SCH (09:00)
== END 2019-08-03 16:05 | disposition home or self-care (01) | DRG 392 ==
LOC: M ED 14:45 → M ED INP 21:16 → ENRESERV 23:36 → M MS4PR 23:45
PROVIDERS: ADMIT Internal Medicine; ATTEND Family Medicine
PROC: 3E0 Administration, Physiological Systems and Anatomical Regions, Introduction (ICD-10-PCS; 2019-08-01)
PROC: 0DB98ZX Excision of Duodenum, Via Natural or Artificial Opening Endoscopic, Diagnostic (ICD-10-PCS; principal; 2019-08-01 12:00)
DX: A08.4 Viral intestinal infection, unspecified (principal); E11.9 Type 2 diabetes mellitus without complications; I10 Essential (primary) hypertension; Q85.01 Neurofibromatosis, type 1; K29.80 Duodenitis without bleeding; E78.5 Hyperlipidemia, unspecified; N39.41 Urge incontinence; R93.5 Abnormal findings on diagnostic imaging of other abdominal regions, including retroperitoneum; K21.0 Gastro-esophageal reflux disease with esophagitis; J30.89 Other allergic rhinitis; G43.909 Migraine, unspecified, not intractable, without status migrainosus; Z79.84 Long term (current) use of oral hypoglycemic drugs; Z79.899 Other long term (current) drug therapy; Z88.6 Allergy status to analgesic agent; Z88.8 Allergy status to other drugs, medicaments and biological substances; Z87.891 Personal history of nicotine dependence

== ENCOUNTER → 2019-08-09 | Outpatient (CLI) | payer MEDICARE, OTHER ==
[~2019-08-09] MED LIST changes: +BOTO200I INJ; +COLA100C5 PO; +METH1TAB40 PO; +SENO8.6T5 PO; +VITA100054 PO; +VITA50005 PO; +ZOFR4TAB16 PO
[2019-08-09 07:49] LABS: BASO % 0.7 % (0.0-1.0); EOS # 0.1 10^3/uL (0.0-0.5); EOS % 2.3 % (0.0-3.0); HEMATOCRIT 45.4 % (36.0-47.0); HEMOGLOBIN 14.2 g/dl (12.0-15.5); LYMPH # 2.2 10^3/uL (1.5-5.0); LYMPH % 37.2 % (24.0-44.0); MEAN CORPUSCULAR HEMOGLOBIN 30.1 pg (27.0-33.0); MEAN CORPUSCULAR HGB CONC 31.3 g/dl (32.0-36.5); MEAN CORPUSCULAR VOLUME 96.4 fl (80.0-96.0); MONO # 0.5 10^3/uL (0.0-0.8); MONO % 7.7 % (0.0-5.0); NEUTROPHILS # 3.1 10^3/uL (1.5-8.5); NEUTROPHILS % 51.3 % (36.0-66.0); PLATELET COUNT, AUTOMATED 338 10^3/uL (150-450); RED BLOOD COUNT 4.71 10^6/uL (4.00-5.40)
[2019-08-09 08:12] LABS: ALBUMIN 3.9 GM/DL (3.2-5.2); ALT/SGPT 23 U/L (12-78); BILIRUBIN,TOTAL 0.2 MG/DL (0.2-1.0); BLOOD UREA NITROGEN 10 MG/DL (7-18); CALCIUM LEVEL 9.3 MG/DL (8.5-10.1); CARBON DIOXIDE LEVEL 26 MEQ/L (21-32); CHLORIDE LEVEL 106 MEQ/L (98-107); CHOLESTEROL LEVEL 175 MG/DL (<200); CHOLESTEROL RISK RATIO 3.804 (<5); CREATININE FOR GFR 0.81 MG/DL (0.55-1.30); GLOMERULAR FILTRATION RATE > 60.0 (>51); GLUCOSE, FASTING 97 MG/DL (70-100); HDL CHOLESTEROL 46 MG/DL (>40); LDL CHOLESTEROL 87 MG/DL (<100); NON-HDL-C 129 MG/DL; POTASSIUM SERUM 4.2 MEQ/L (3.5-5.1); SODIUM LEVEL 139 MEQ/L (136-145); TOTAL PROTEIN 7.2 GM/DL (6.4-8.2); TRIGLYCERIDES LEVEL 210 MG/DL (<150)
[2019-08-09 08:26] LABS: HEMOGLOBIN A1c 5.7 %
[2019-08-09 08:52] LABS: VITAMIN B12 LEVEL > 2000 PG/ML (247-911)
[2019-08-09 13:27] LABS: TOTAL PROTEIN 7.2 GM/DL (6.4-8.2)
[2019-08-11 11:56] LABS: ALBUMIN 4.36 GM/DL (3.29-5.55); ALBUMIN % 60.5 % (55.8-66.1); ALPHA-1-GLOBULIN % 4.7 % (2.9-4.9); ALPHA-1-GLOBULINS 0.34 GM/DL (0.17-0.41); ALPHA-2-GLOBULINS 0.83 GM/DL (0.42-0.99); ALPHA-2-GLOBULINS % 11.5 % (7.1-11.8); BETA-1-GLOBULINS 0.45 GM/DL (0.28-0.60); BETA-1-GLOBULINS % 6.2 % (4.7-7.2)
[2019-08-11 11:57] LABS: BETA-2-GLOBULINS 0.39 GM/DL (0.19-0.55); BETA-2-GLOBULINS % 5.4 % (3.2-6.5); GAMMA GLOBULIN % 11.7 % (11.1-18.8); GAMMA GLOBULINS 0.84 GM/DL (0.65-1.58)
== END ==
LOC: M LAB 06:49
PROVIDERS: ATTEND Family Medicine
DX: R73.01 Impaired fasting glucose (principal); D75.89 Other specified diseases of blood and blood-forming organs; Z79.84 Long term (current) use of oral hypoglycemic drugs

== ENCOUNTER → 2020-01-25 | Outpatient (CLI) | payer MEDICARE ==
[~2020-01-25] MED LIST changes: -ASPI81TA85 PO; +ASPI81TA86 PO; -METF-699 PO; +METF-817 PO
--- NOTE | 2020-01-25 13:01 | REPMRS ---
Patient History The patient states she has not had a clinical breast exam in over a year. Family history of breast cancer at age 67 in mother, breast cancer at age 50 or over in maternal grandmother, breast cancer at age 56 in sister. Benign excisional biopsy of the left breast. Took estrogen for 3 years. Digital Woman Screen Mammo: January 25, 2020 - Exam #: [id number] Bilateral CC and MLO view(s) were taken. Technologist: Bharti Marte, Technologist Prior study comparison: December 22, 2018, bilateral digital woman screen mammo performed at [facility]. December 08, 2017, digital woman screen mammo performed at [facility]. October 13, 2016, digital woman screen mammo performed at [facility]. FINDINGS: There are scattered fibroglandular densities. The Volpara volumetric breast density category is: B. There is a moderate amount of residual fibroglandular tissue which is fairly symmetric. There is no interval development of dominant mass, architectural distortion, or grouped microcalcification typical of malignancy. There has been no change in the appearance of the mammogram from the prior studies. 3-D tomosynthesis shows no additional findings. Assessment: BI-RADS/ACR category 1 mammogram. Negative Mammogram. Recommendation Routine screening mammogram of both breasts in 1 year (for women over age 40). This patient's Lifetime Breast Cancer RIsk is estimated at 19.2 %. This mammogram was interpreted with the aid of an FDA-approved computer-aided dectection system. Electronically Signed By: Bharathi Bustos MD 01/25/20 1300
== END ==
LOC: M WHC 12:23
PROVIDERS: ATTEND Family Medicine
DX: Z12.31 Encounter for screening mammogram for malignant neoplasm of breast (principal); Z80.3 Family history of malignant neoplasm of breast

== ENCOUNTER → 2020-02-16 | Outpatient (REF) | payer MEDICARE ==
[2020-03-21 11:57] LABS: APPEARANCE, URINE CLOUDY (CLEAR); COLOR, URINE YELLOW (YELLOW); GLUCOSE, URINE (UA) AUTO NEGATIVE (NEGATIVE); KETONE, URINE AUTO NEGATIVE (NEGATIVE); PROTEIN, URINE AUTO NEGATIVE (NEGATIVE)
[2020-03-21 11:58] LABS: AMORPHOUS SEDIMENT SMALL (NEGATIVE); BACTERIA, URINE AUTO NEGATIVE (NEGATIVE); BILIRUBIN, URINE AUTO NEGATIVE (NEGATIVE); BLOOD, URINE BLOOD NEGATIVE (NEGATIVE); CALCIUM OXALATE CRYSTALS MODERATE; LEUKOCYTE ESTERASE, URINE AUTO NEGATIVE (NEGATIVE); MUCUS, URINE SMALL (NEGATIVE); NITRITE, URINE AUTO NEGATIVE (NEGATIVE); RBC, URINE AUTO 2 /HPF (0-3); SQUAMOUS EPITHELIAL CELL UR AU 0 /HPF (0-6); UROBILINOGEN, URINE AUTO 0.2 mg/dL (0.0-2.0); WBC, URINE AUTO 1 /HPF (0-3)
== END ==
LOC: M SFHCPLAZ 15:09
PROVIDERS: ATTEND Family Medicine
DX: R35.0 Frequency of micturition (principal)

== ENCOUNTER → 2020-03-22 | Outpatient (CLI) | payer MEDICARE ==
--- NOTE | 2020-04-04 09:06 | REP ---
LIMITED PELVIC BLADDER SONOGRAPHY HISTORY: Urinary frequency. FINDINGS: Transabdominal scanning demonstrates limited bladder distention despite the patient feeling full and urgency. Calculated bladder volume is 75 mL. Bladder rene are smooth. No extravesical lesion is seen. Postvoid bladder imaging demonstrates 21 mL, 28%, postvoid residual. IMPRESSION: Limited bladder filling. A 28% postvoid residual. No structural abnormality is seen. MTDD
== END ==
LOC: M RAD 10:00
PROVIDERS: ATTEND Family Medicine
DX: R35.0 Frequency of micturition (principal)

== ENCOUNTER → 2020-06-13 | Outpatient (CLI) | payer SELFPAY | LOC: M LABSMTC 12:37 | PROVIDERS: ATTEND Pediatrics | DX: Z11.59 Encounter for screening for other viral diseases (principal) ==

== ENCOUNTER → 2020-08-16 | Outpatient (REF) | payer MEDICARE ==
[~2020-08-16] MED LIST changes: +METH-1164 PO; -METH1TAB40 PO
[2020-08-16 19:32] LABS: BASO # 0.1 10^3/uL (0.0-0.2); BASO % 0.9 % (0.0-1.0); EOS # 0.2 10^3/uL (0.0-0.5); EOS % 3.8 % (0.0-3.0); HEMATOCRIT 42.2 % (36.0-47.0); HEMOGLOBIN 13.3 g/dl (12.0-15.5); LYMPH # 1.5 10^3/uL (1.5-5.0); LYMPH % 27.8 % (24.0-44.0); MEAN CORPUSCULAR HEMOGLOBIN 30.9 pg (27.0-33.0); MEAN CORPUSCULAR HGB CONC 31.5 g/dl (32.0-36.5); MEAN CORPUSCULAR VOLUME 97.9 fl (80.0-96.0); MONO # 0.5 10^3/uL (0.0-0.8); MONO % 8.2 % (0.0-5.0); NEUTROPHILS # 3.2 10^3/uL (1.5-8.5); NEUTROPHILS % 58.9 % (36.0-66.0); PLATELET COUNT, AUTOMATED 314 10^3/uL (150-450); RED BLOOD COUNT 4.31 10^6/uL (4.00-5.40); WHITE BLOOD COUNT 5.5 10^3/uL (4.0-10.0)
[2020-08-16 20:13] LABS: ALBUMIN 4.1 GM/DL (3.2-5.2); ALT/SGPT 20 U/L (12-78); BILIRUBIN,TOTAL 0.3 MG/DL (0.2-1.0); BLOOD UREA NITROGEN 20 MG/DL (7-18); CARBON DIOXIDE LEVEL 27 MEQ/L (21-32); CHLORIDE LEVEL 105 MEQ/L (98-107); CHOLESTEROL LEVEL 199 MG/DL (<200); CHOLESTEROL RISK RATIO 3.618 (<5); CREATININE FOR GFR 0.72 MG/DL (0.55-1.30); ERYTHROCYTE SEDIMENTATION RATE 15 mm/hr (0-30); FERRITIN 22 NG/ML (8-252); FREE T4 0.83 NG/DL (0.76-1.46); GLOMERULAR FILTRATION RATE > 60.0 (>51); GLUCOSE, FASTING 73 MG/DL (70-100); HDL CHOLESTEROL 55 MG/DL (>40); LDL CHOLESTEROL 114 MG/DL (<100); NON-HDL-C 144 MG/DL; POTASSIUM SERUM 4.8 MEQ/L (3.5-5.1); PTH INTACT 32.9 PG/ML (18.5-88.0); SODIUM LEVEL 139 MEQ/L (136-145); THYROID STIMULATING HORMONE 0.664 uIU/ML (0.358-3.740); TOTAL 25(OH) VITAMIN D 87.3 NG/ML (30.0-100.0); TOTAL PROTEIN 7.2 GM/DL (6.4-8.2); TRIGLYCERIDES LEVEL 152 MG/DL (<150); VITAMIN B12 LEVEL 582 PG/ML (247-911)
[2020-08-16 21:30] LABS: HEMOGLOBIN A1c 5.2 %
== END ==
LOC: M SFHCPLAZ 15:36
PROVIDERS: ATTEND Family Medicine
DX: E55.9 Vitamin D deficiency, unspecified (principal); R73.01 Impaired fasting glucose; E78.2 Mixed hyperlipidemia; E53.8 Deficiency of other specified B group vitamins; M75.41 Impingement syndrome of right shoulder; Q85.00 Neurofibromatosis, unspecified; Z79.899 Other long term (current) drug therapy

== ENCOUNTER → 2020-08-16 | Outpatient (CLI) | payer MEDICARE ==
--- NOTE | 2020-08-17 01:28 | REPPI ---
INDICATION: M46.1 SACROILITIS. COMPARISON: None. TECHNIQUE: AP and bilateral oblique views of the sacroiliac joints. FINDINGS: The bilateral sacroiliac joints are symmetric and essentially age-appropriate. Very minimal periarticular sclerosis appreciated without evidence for fusion. No acute or healed injury identified. IMPRESSION: Mild symmetric age-related changes to the sacroiliac joints. <Electronically signed by Sukhdve Silver > 08/17/20 2090
--- NOTE | 2020-08-17 01:39 | REPPI ---
INDICATION: M46.1 SACROILITIS COMPARISON: 07/23/2010 TECHNIQUE: AP, lateral, flexion/extension, bilateral oblique, and coned-down views. FINDINGS: Alignment and lordosis is maintained. The vertebral bodies including transverse process and spinous processes are intact and normal. There is no evidence for acute fracture / compression injury or subluxation. No evidence for spondylolysis or spondylolisthesis. Mild multilevel age-related changes including subtle endplate sclerosis with minimal disc space narrowing primarily at L2-3 as well as the facet arthropathy at L5-S1. IMPRESSION: Mild degenerative changes <Electronically signed by Sukhdev Silver > 08/17/20 0139
--- NOTE | 2020-08-17 01:45 | REPPI ---
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 TECHNIQUE: Internal rotation, external rotation, and Y view. FINDINGS: No acute fracture or dislocation. The acromioclavicular and glenohumeral joints are intact. No periarticular calcifications or degenerative changes are appreciated. Sub acromial space is normal. Surrounding soft tissues are unremarkable. IMPRESSION: Normal age-appropriate right shoulder radiographs. No overt osteoarthritic degenerative changes are appreciated. <Electronically signed by Sukhdev Silver > 08/17/20 0141
== END ==
LOC: M PLAIMG 15:37
PROVIDERS: ATTEND Family Medicine
DX: M51.36 Other intervertebral disc degeneration, lumbar region (principal); M46.1 Sacroiliitis, not elsewhere classified; M75.41 Impingement syndrome of right shoulder; E55.9 Vitamin D deficiency, unspecified; R73.01 Impaired fasting glucose; E78.2 Mixed hyperlipidemia; E53.8 Deficiency of other specified B group vitamins; Q85.00 Neurofibromatosis, unspecified; Z79.899 Other long term (current) drug therapy
CPT/HCPCS: 36415; 72114; 72202; 73030; 80053; 80061; 81374; 82306; 82607; 82728; 83036; 83525; 83970; 84439; 84443; 85025; 85652; 86140; 86200; 86677; G0463

== ENCOUNTER → 2020-12-27 | Outpatient (REF) | payer MEDICARE ==
[~2020-12-27] MED LIST changes: +ERGO500029 PO; +FAMO10TA50 PO; -FAMO1TAB25 PO; -VITA50005 PO
[2020-12-27 17:03] LABS: BASO % 0.8 % (0.0-1.0); EOS # 0.1 10^3/uL (0.0-0.5); EOS % 2.7 % (0.0-3.0); HEMATOCRIT 44.2 % (36.0-47.0); HEMOGLOBIN 13.9 g/dl (12.0-15.5); LYMPH # 1.5 10^3/uL (1.5-5.0); LYMPH % 30.9 % (24.0-44.0); MEAN CORPUSCULAR HEMOGLOBIN 29.6 pg (27.0-33.0); MEAN CORPUSCULAR HGB CONC 31.4 g/dl (32.0-36.5); MONO # 0.4 10^3/uL (0.0-0.8); MONO % 9.1 % (2.0-8.0); NEUTROPHILS # 2.7 10^3/uL (1.5-8.5); NEUTROPHILS % 56.3 % (36.0-66.0); PLATELET COUNT, AUTOMATED 284 10^3/uL (150-450); WHITE BLOOD COUNT 4.8 10^3/uL (4.0-10.0)
[2020-12-27 17:30] LABS: HEMOGLOBIN A1c 5.5 %
[2020-12-27 17:31] LABS: ALT/SGPT 22 U/L (12-78); BILIRUBIN,TOTAL 0.4 MG/DL (0.2-1.0); BLOOD UREA NITROGEN 12 MG/DL (7-18); CALCIUM LEVEL 8.7 MG/DL (8.5-10.1); CARBON DIOXIDE LEVEL 27 MEQ/L (21-32); CHLORIDE LEVEL 107 MEQ/L (98-107); CREATININE FOR GFR 0.66 MG/DL (0.55-1.30); FERRITIN 14 NG/ML (8-252); GLOMERULAR FILTRATION RATE > 60.0 (>51); GLUCOSE, FASTING 90 MG/DL (70-100); POTASSIUM SERUM 4.5 MEQ/L (3.5-5.1); SODIUM LEVEL 139 MEQ/L (136-145); TOTAL PROTEIN 7.2 GM/DL (6.4-8.2)
[2020-12-27 18:00] LABS: ERYTHROCYTE SEDIMENTATION RATE 7 mm/hr (0-30)
[2020-12-29 21:07] LABS: ANA (HEP2) Negative (.); H PYLORI SERUM QUANT IgG ABY 0.59 (0.00-0.79); INSULIN LEVEL 5.4 uIU/mL (2.6-24.9); SSA SJOGRENS A <0.2 AI (0.0-0.9); SSB SJOGRENS B <0.2 AI (0.0-0.9)
== END ==
LOC: M SFHCPLAZ 14:34
PROVIDERS: ATTEND Family Medicine
DX: R73.01 Impaired fasting glucose (principal); E53.8 Deficiency of other specified B group vitamins; M46.1 Sacroiliitis, not elsewhere classified; Q85.00 Neurofibromatosis, unspecified
CPT/HCPCS: 36415; 80053; 82728; 83036; 83525; 85025; 85652; 86038; 86140; 86235; 86677; G0463

== ENCOUNTER → 2021-01-22 | Outpatient (CLI) | payer MEDICARE ==
--- NOTE | 2021-01-22 14:12 | REPMRS ---
Patient History The patient states she has not had a clinical breast exam in over a year. Family history of breast cancer at age 67 in mother, breast cancer at age 50 or over in maternal grandmother, breast cancer at age 56 in sister. Benign excisional biopsy of the left breast. Took estrogen for 3 years. Patient states no breast complaints today. Patient has signed MRS History Sheet. Digital Woman Screen Mammo: January 22, 2021 - Exam #: [id number] Bilateral CC and MLO view(s) were taken. Technologist: Juliet Joshua, Technologist Prior study comparison: January 25, 2020, bilateral digital woman screen mammo performed at [facility]. December 22, 2018, bilateral digital woman screen mammo performed at [facility]. December 08, 2017, digital woman screen mammo performed at [facility]. FINDINGS: The breast tissue is heterogeneously dense. This may lower the sensitivity of mammography. The Volpara volumetric breast density category is: C. There is a moderate amount of heterogeneously dense fibroglandular tissue which is fairly symmetric. There is no interval development of dominant mass, architectural distortion, or grouped microcalcification typical of malignancy. There has been no change in the appearance of the mammogram from the prior studies. 3-D tomosynthesis shows no additional findings. Assessment: BI-RADS/ACR category 1 mammogram. Negative Mammogram. Recommendation Routine screening mammogram of both breasts in 1 year (for women over age 40). This patient's [facility] Lifetime Breast Cancer RIsk is estimated at 19.2 %. Patients whose estimated lifetime breast cancer risk assessment is greater than 20% merit annual screening breast MRI scanning in addition to annual mammography. This mammogram was interpreted with the aid of an FDA-approved computer-aided dectection system. Electronically Signed By: Bharathi Bustos MD 01/22/21 2701
== END ==
LOC: M WHC 12:16
PROVIDERS: ATTEND Family Medicine
DX: Z12.31 Encounter for screening mammogram for malignant neoplasm of breast (principal); Z80.3 Family history of malignant neoplasm of breast; Z98.890 Other specified postprocedural states